=== PATIENT | female | born 1945 | race Caucasian/White ===

== ENCOUNTER 2017-04-27 12:27 | Inpatient (IN) | payer MEDICARE ==
[2017-04-27 13:20] LABS: #Basophils 0.1 thou/uL (0.0-0.2); #Lymphocytes 1.8 thou/uL (1.20-3.40); #Monocytes 0.8 thou/uL (0.11-0.59); #Neutrophils 4.2 thou/uL (1.40-6.50); %Eosinophils 0.5 % (0.0-10.0); %Lymphocytes 26.4 % (21.0-51.0); %Monocytes 11.5 % (0.0-10.0); Hematocrit 43.6 % (36.0-47.0); Mean Platelet Volume 6.4 fL (7.4-10.4); Red Blood Cell (RBC) Count 4.82 mill/uL (4.20-5.40)
[2017-04-27 13:24] LABS: Bilirubin Negative (Negative); Blood, Urine Negative (Negative); Glucose, Urine (Dipstick) Negative (Negative); Ketone, Urine Negative (Negative); Nitrite Negative (Negative); Protein, Urine (Dipstick) Negative (Neg-Trace); Urobilinogen 0.2 mg/dL (0.2-1.0)
--- NOTE | 2017-04-27 13:26 | RAD ---
CHEST PA AND LATERAL: HISTORY: A 72-year-old female with chest pain and weakness, lightheadedness, fatigue, loss of appetite. COMPARISON: 11/19/14. FINDINGS: Heart size is within normal limits. Bilateral breast augmentation and prostheses. No confluent pne umonia, overt edema, or pleural effusion. There are noted to be some scattered air fluid levels wit hin the abdomen, probably colon, although I cannot state that with absolute certainty. Consider a fo llowup flat and upright abdomen study for further evaluation. IMPRESSION: No acute intrathoracic disease. Scattered air fluid levels within nonspecific bowel incompletely se en on this study. Followup flat and upright abdomen study might be of benefit. POS: [facility]
[2017-04-27 13:33] LABS: ALT (SGPT) 27 U/L (8-55); AST (SGOT) 27 U/L (5-34); Alkaline Phosphatase 84 U/L (40-150); Anion Gap 16 mmol/L (10-20); BUN (Urea Nitrogen) 17 mg/dL (9.8-20.1); Bilirubin, Total 0.5 mg/dL (0.2-1.2); Calc. Creatinine Clearance 0 mL/min (70-130); Calcium 8.4 mg/dL (7.8-10.44); Carbon Dioxide 19 mmol/L (23-31); Chloride 104 mmol/L (98-107); Estimated GFR-MDRD 33; Globulin 2.3 g/dL (2.4-3.5)
[2017-04-27 13:35] LABS: Troponin I Less than 0.010 ng/mL (< 0.028)
[2017-04-27] MEDS ORDERED: Potassium Chloride 20 MEQ/100 ML PREMIX BAG ONE (14:00)
[2017-04-27 14:09] LABS: Lactic Acid - Sepsis 1.1 mmol/L (0.5-2.2)
[2017-04-27 17:53] LABS: Free T3 1.63 pg/mL (1.71-3.71)
--- NOTE | 2017-04-27 18:39 | CT ---
ABDOMEN AND PELVIC CT SCAN WITHOUT IV CONTRAST: History: 72-year-old female with weakness and light headedness. Recent infection with nausea, vomiting, diarr hea, and fever. FINDINGS: The lung bases appear clear. Small hiatal hernia. Approximately 1.8 x 2.2 cm diameter cyst in the ri ght lobe of the liver. Arterial vascular calcification of the aorta. Liver, gallbladder, pancreas, s pleen, adrenal glands, are otherwise unremarkable. No renal calculus or acute obstruction. There is considerable amount of fluid throughout a somewhat distended colon from rectum all the way to cec um which may well account for symptoms of diarrhea. Normal appearing appendix. No evidence for bowel obstruction. No renal calculus or obstruction. IMPRESSION: Distended fluid filled and minimally air filled colon which certainly could account for symptoms of diarrhea. Right lobe of liver cyst. Small hiatal hernia. Normal appearing appendix. No renal calculu s or obstruction. POS: [facility]
[2017-04-27] MEDS ORDERED: Acetaminophen 325 MG TAB PO PRN (18:44)
[2017-04-27] MEDS ORDERED: Lactated Ringer's 1,000 ML IV SCH (19:00)
[2017-04-27] MEDS: Dextrose 5%-Lactated Ringers 1,000 ML IV SCH (22:30)
[2017-04-27] MEDS ORDERED: ALPRAZolam 0.25 MG TAB PO SCH (23:15)
--- NOTE | 2017-04-28 00:45 | HP ---
CHIEF COMPLAINT: Weakness. HISTORY OF PRESENT ILLNESS: This is a 72-year-old female, patient of Dr. David Ramirez, jo wei came to the emergency room due to weakness. This past week, she has had symptoms of a GI virus w ith initial days of emesis and nausea followed by diarrhea and she felt presyncopal earlier today, jo mcgovern is what made her come into the emergency room. She stated that the GI illness had been making its way through her family starting earlier in this past week. Check in the outpatient chart, she h ad actually been given a prescription for Lomotil and Zofran just a couple of days ago. In the ER, she was found to have creatinine of 1.5 and potassium of 2.3. PAST MEDICAL HISTORY: Hypothyroidism, menopause, she is on hormone replacement therapy, glaucoma, g eneral anxiety disorder, and hyperlipidemia. PAST SURGICAL HISTORY: Positive for a total vaginal hysterectomy with BSO as well as breast implant s. ALLERGIES: No known drug allergies. MEDICATIONS: Synthroid 125 mcg a day, Zocor 40 mg a day, Premarin 0.625 mg a day, Lexapro 20 mg a d ay, quetiapine 400 mg at bedtime, and alprazolam 0.25 mg t.i.d. FAMILY HISTORY: Coronary artery disease and stroke in her father, depression in her mother, both ar e . She has breast cancer. Coronary artery disease and stroke in siblings and she has a ch ild who is . SOCIAL HISTORY: She is a former smoker. She quit in 1969 after smoking for about 10 years. She burt s no toxic habits currently. REVIEW OF SYSTEMS: She denies any fevers or chills. She does have a slight headache, some emesis e arlier in the week, but no nausea or vomiting now. She did have some nausea with slight anorexia as sociated with that earlier in the week that then has transitioned into watery diarrhea. She denies any trouble chewing or swallowing. No chest pain or shortness of breath. No hemoptysis. Denies an y hematemesis, bright red blood per rectum, or melena. Denies any changes in urinary habits. No dy suria or hematuria. Denies any paresis or paresthesias. She did have some leg cramps earlier with replacement of electrolytes does have subsided. She also denies any hallucinations, auditory or vis ual. Denies any suicidal or homicidal ideations. PHYSICAL EXAMINATION: VITAL SIGNS: Her temperature is 98.0, pulse 72, respirations at 16. She is satting 97% on room air , and BP 138/65. GENERAL: She is a thin female, appears younger than her stated age. She is alert and ivelisse ented rather nervous at this point. HEENT: She is normocephalic, atraumatic cranium. Pupils are equal, round, and reactive to light an d accommodation. Extraocular movements are intact. Mucous membranes are dry, but pink. NECK: Supple. No JVD, no bruits. LUNGS: Clear to auscultation bilaterally. HEART: S1, S2,. No rubs, murmurs, or gallops. ABDOMEN: Soft, nontender, nondistended. No palpable masses. No hepatosplenomegaly. No caput medu erin. Bowel sounds are hypoactive throughout. GENITOURINARY: Deferred. EXTREMITIES: She has palpable pulses in all four extremities. No cyanosis or edema. She has no kn own rash seen. NEUROMUSCULAR: She is alert and oriented x4. Cranial nerves II through XII are equal and symmetric al. There are no sensory or motor deficits found. All DTRs are 2+ and equal. LABORATORY FINDINGS: Her white count is 7.0, H and H is 15 and 43 with a 296,000 platelets. Neutro phils at 60%, lymphocytes at 26%, monocytes 11.5%. There are no bands. Sodium is 137, potassium wa s 2.3, is now 3.0, chloride 104, bicarbonate 19, BUN 17, creatinine is elevated at 1.55, glucose is 98. Troponin is undetectable. Beta natriuretic peptide is normal at 22 and her TSH is suppressed a t 0.01. ASSESSMENT AND PLAN: Acute viral illness with diarrhea, hypokalemia, and weakness resulting, she is already feeling better after having this corrected up to a 3.0. She also has hyperthyroid effect, possibly from excess medicines or possibly associated with a viral illness and dehydration. I will decrease her dose to an 88 mcg while she is here. She has acute renal insufficiency and also likely due to the viral illness, dehydration, and diarrhea. We will continue her IV fluids and monitor Dr Lucy Ramirez to see her in the morning.
[2017-04-28] MEDS: ALPRAZolam 0.25 MG TAB PO SCH ×2 (05:29→14:25)
[2017-04-28] MEDS ORDERED: Levothyroxine Sodium 88 MCG TAB PO SCH (06:00)
[2017-04-28 06:11] LABS: Band 2 % (5-11); Hematocrit 39.2 % (36.0-47.0); Mean Platelet Volume 6.3 fL (7.4-10.4); Neutrophil 43 % (42-75); Reactive Lymphocytes 2 % (0-10); Red Blood Cell (RBC) Count 4.08 mill/uL (4.20-5.40); White Blood Cell (WBC) Count 6.6 thou/uL (4.8-10.8)
[2017-04-28 06:14] LABS: Anion Gap 9 mmol/L (10-20); BUN (Urea Nitrogen) 13 mg/dL (9.8-20.1); Calc. Creatinine Clearance 34 mL/min (70-130); Carbon Dioxide 16 mmol/L (23-31); Chloride 114 mmol/L (98-107); Estimated GFR-MDRD 46
[2017-04-28] MEDS ORDERED: Magnesium Oxide 400 MG TAB PO SCH (07:15)
[2017-04-28] MEDS ORDERED: Potassium Chloride 20 MEQ TAB PO SCH ×2 (07:15→08:00)
[2017-04-28] MEDS ORDERED: Potassium Chloride 40 MEQ in Sodium Chloride 0.9% 250 ML 250 ML IVPB SCH ×2 (07:45→08:15)
[2017-04-28] MEDS ORDERED: FLU VACC TS2017-18 (>65YR) 0.5 ML SYRINGE IM ONE (09:00)
[2017-04-28] MEDS ORDERED: Latanoprost 0.005% Ophth Soln 2.5 ml Bottle EA EYE SCH (09:00)
[2017-04-28] MEDS ORDERED: Brinzolamide 1% Ophth Soln 10 ml Bottle EA EYE SCH (09:00)
[2017-04-28] MEDS ORDERED: Escitalopram Oxalate 20 mg Tablet PO SCH (09:00)
[2017-04-28 13:31] VITALS: BMI 18.8
[2017-04-28 14:25] VITALS: BP 118/57; TEMP 97.6
[2017-04-28 14:45] LABS: Anion Gap 8 mmol/L (10-20); BUN (Urea Nitrogen) 11 mg/dL (9.8-20.1); Calc. Creatinine Clearance 32 mL/min (70-130); Calcium 8.3 mg/dL (7.8-10.44); Carbon Dioxide 21 mmol/L (23-31); Chloride 111 mmol/L (98-107); Estimated GFR-MDRD 45
[2017-04-28] MEDS: Dextrose 5%-Lactated Ringers 1,000 ML IV SCH ×2 (15:13→15:19)
[2017-04-29] MEDS ORDERED: Potassium Chloride 20 MEQ TAB PO SCH (08:00)
[2017-04-29] MEDS ORDERED: Magnesium Oxide 400 MG TAB PO SCH (09:00)
--- NOTE | 2017-04-29 14:11 | DIS ---
DISCHARGE DIAGNOSES: 1. Dehydration. 2. Diarrhea. 3. Gastroenteritis. 4. Hypokalemia. ADMITTING PHYSICIAN: David Ramirez M.D. HOSPITAL SUMMARY: The patient is a 72-year-old female who reported to the emergency room with a 3-5 day history of recurrent diarrhea associated with some vomiting. She was found to have a clinical de hydration manifested by hypokalemia, potassium of below 3. She was started on IV fluids, as well as oral and IV potassium supplementation. She tolerated all supplementation well by the end of treatmen t. Her potassium levels have returned back to normal. She was able to be discharged home on 04/28/2017 on the following medications: Xanax 0.25 mg every 8 hours, magnesium oxide 400 mg b.i.d., potassium chloride 20 mEq p.o. b.i.d., Xalatan eyedrops, Azopt eyedrops, Seroquel 400 mg p.o. at bedtime, citalopram 20 mg daily, simvastatin 40 mg daily. She will be seen in followup in my office in approximately 3 days.
--- NOTE | 2017-06-14 10:40 | EKG ---
Test Reason : WEAKNESS Blood Pressure : / mmHG Vent. Rate : 080 BPM Atrial Rate : 084 BPM P-R Int : 000 ms QRS Dur : 098 ms QT Int : 434 ms P-R-T Axes : 038 042 063 degrees QTc Int : 500 ms Age and gender specific ECG analysis Sinus rhythm with A-V dissociation and Accelerated Junctional rhythm Indeterminate axis Nonspecific T wave abnormality Prolonged QT Abnormal ECG Confirmed by MARGY HARDEN M.D. ([id number]), editor news CAMACHO [place]IS ([id number]) on 06/14/2017 10:40:21 AM Referred By: DR. HARDEN Confirmed By:MARGY HARDEN M.D.
== END 2017-04-28 17:30 | disposition home or self-care (01) | DRG 392 ==
LOC: SCSER 12:27 → 2NO 15:33
PROVIDERS: ADMIT Family Medicine; ATTEND Family Medicine
DX: A08.4 Viral intestinal infection, unspecified (principal); E86.0 Dehydration; E03.9 Hypothyroidism, unspecified; R53.1 Weakness; E87.6 Hypokalemia; N28.9 Disorder of kidney and ureter, unspecified; E78.5 Hyperlipidemia, unspecified; Z79.890 Hormone replacement therapy; Z87.891 Personal history of nicotine dependence
CPT/HCPCS: 36415; 71020; 74176; 80048; 80053; 81003; 82553; 83605; 83735; 83880; 84439; 84443; 84481; 84484; 85025; 87324; 87449; 93005; 96365; 96366; A4216; J3480; J7050

== ENCOUNTER 2018-01-07 12:00 | Outpatient (CLI) | payer MEDICARE ==
--- NOTE | 2018-01-07 13:58 | CT ---
CT ABDOMEN AND PELVIS PERFORMED WITH INTRAVENOUS CONTRAST ENHANCEMENT: HISTORY: Right lower quadrant pain since Friday. Fever. Nausea. FINDINGS: ABDOMEN: The lung bases show findings that would suggest an emphysematous type change. The liver, spleen, pancreas, and gallbladder regions appear unremarkable, other than the presence of a cyst involving the inferior-most aspect of the right lobe of the liver. It measures 2.2 cm. The right and left adrenal glands and the right and left kidneys are normal in size. There is no sig nificant periaortic or mesenteric adenopathy. There is fluid seen throughout the colon, suggesting d iarrhea. PELVIS: There is an appendicolith present, associated with a dilated appendix. There is some air de nsity seen adjacent to the base of the appendix. I am not certain whether this represents a small co ntained perforation or possibly just volume averaging with the cecum. There is no free fluid in the pelvis. No other significant findings. IMPRESSION: CT findings compatible with appendicitis with an appendicolith near the base of the appendix. There is also some air density in this region. This could represent a contained perforation of the appendi x in this region, although it could just be related to some volume averaging with the adjacent bowel. POS: [facility]
[2018-01-07] MEDS ORDERED: Iopamidol 370 76% 100 ML VIAL ONE (15:02)
== END 2018-01-07 12:01 | disposition home or self-care (01) ==
LOC: CT 12:00
PROVIDERS: ATTEND Family Medicine
DX: R10.31 Right lower quadrant pain (principal); R50.9 Fever, unspecified
CPT/HCPCS: 74177

== ENCOUNTER 2018-01-07 13:41 | Inpatient (IN) | payer MEDICARE ==
[2018-01-07] MEDS ORDERED: Lidocaine 1% PF 5 ML VIAL ONE (13:55)
[2018-01-07] MEDS ORDERED: PROPOFOL 200 MG/20 ML VIAL ONE (13:55)
[2018-01-07] MEDS ORDERED: Glycopyrrolate 0.2 MG/ML 5 ML SYRINGE ONE (13:55)
[2018-01-07] MEDS ORDERED: Ondansetron HCl/PF 4 MG/2 ML Vial ONE ×2 (13:55→20:55)
[2018-01-07] MEDS ORDERED: Succinylcholine Chloride 20 MG/ML 10 ml SYRINGE FS ONE (13:55)
[2018-01-07] MEDS ORDERED: Piperacillin/Tazobactam 3.375 GM VIAL ONE (14:02)
[2018-01-07] MEDS ORDERED: Morphine 4 MG/ML VIAL ONE (14:29)
[2018-01-07 14:42] LABS: #Lymphocytes 1.2 thou/uL (1.20-3.40); #Monocytes 1.3 thou/uL (0.11-0.59); #Neutrophils 12.7 thou/uL (1.40-6.50); %Basophils 0.2 % (0.0-1.0); %Eosinophils 0.1 % (0.0-10.0); %Lymphocytes 8.1 % (21.0-51.0); %Monocytes 8.2 % (0.0-10.0); %Neutrophils 83.3 % (42.0-75.0); Hemoglobin 15.3 g/dL (12.0-16.0); Mean Corpuscular HGB CONC 34.4 g/dL (32.0-36.0); Mean Corpuscular Hemoglobin 32.5 pg (27.0-31.0); Mean Corpuscular Volume 94.5 fL (78.0-98.0); Mean Platelet Volume 6.4 fL (7.4-10.4); Platelet Count 273 thou/uL (130-400); RBC Distribution Width 11.5 % (11.5-14.5); White Blood Cell (WBC) Count 15.3 thou/uL (4.8-10.8)
[2018-01-07 15:00] LABS: Bilirubin Negative (Negative); Blood, Urine Negative (Negative); Clarity CLEAR (Clear); Glucose, Urine (Dipstick) Negative (Negative); Leukocyte Negative (Negative); Nitrite Negative (Negative); Protein, Urine (Dipstick) Negative (Neg-Trace); Urobilinogen 0.2 mg/dL (0.2-1.0); pH, Urine 5.5 (5.0-9.0)
[2018-01-07 15:05] LABS: Specific Gravity, Urine 1.046 (1.002-1.036)
[2018-01-07 15:07] LABS: ALT (SGPT) 21 U/L (8-55); AST (SGOT) 30 U/L (5-34); Albumin 4.1 g/dL (3.4-4.8); Alkaline Phosphatase 84 U/L (40-150); Anion Gap 15 mmol/L (10-20); BUN (Urea Nitrogen) 19 mg/dL (9.8-20.1); Bilirubin, Total 0.6 mg/dL (0.2-1.2); Calc. Creatinine Clearance 0 mL/min (70-130); Calcium 8.7 mg/dL (7.8-10.44); Carbon Dioxide 24 mmol/L (23-31); Chloride 94 mmol/L (98-107); Estimated GFR-MDRD 40; Globulin 2.8 g/dL (2.4-3.5); Glucose 102 mg/dL (83-110); Lipase 69 U/L (8-78); Protein, Total 6.9 g/dL (6.0-8.3); Sodium 130 mmol/L (136-145)
[2018-01-07 15:13] LABS: Potassium 2.8 mmol/L (3.5-5.1)
[2018-01-07] MEDS ORDERED: Potassium Chloride 40 MEQ in Sodium Chloride 0.9% 250 ML 250 ML IVPB SCH (15:45)
--- NOTE | 2018-01-07 16:25 | HP ---
REQUESTING PHYSICIAN: Dr. Cortez ATTENDING SURGEON: Dr. Frias HISTORY OF PRESENT ILLNESS: The patient is a 72-year-old woman who presented to the emerge ncy department after being referred from her primary care provider for right lower quadrant pain and fever. The patient states that on Friday she woke up with some generalized abdominal pain that event ually migrated to her right lower quadrant. She initially thought this was gas and attempted some ov [id number] medications without relief. This morning she woke up febrile with a temperature of 10 0.1 and unrelenting pain at which time she was brought to the Emergency Department, evaluated, examin ed and noted to have acute appendicitis with a possible perforation at which time we were asked to ev aluate the patient for admission. The patient states that she has had nausea without vomiting, and d enies any diarrhea. ALLERGIES: None. MEDICATIONS: Xanax, Lexapro, Premarin, latanoprost, levothyroxine, magnesium oxide, potassium chlori de, Seroquel and Zocor. PAST MEDICAL HISTORY: Anxiety, depression, hypothyroidism, hyperlipidemia. PAST SURGICAL HISTORY: Hysterectomy and tonsillectomy. SOCIAL HISTORY: The patient denies drug, tobacco or alcohol use. She currently lives home with her spouse. FAMILY HISTORY: Hypertension. REVIEW OF SYSTEMS: Ten point review of systems negative unless otherwise stated. PHYSICAL EXAMINATION: VITAL SIGNS: Blood pressure 111/60, heart rate 85, respirations 15, oxygen saturation is 99% on room air, temperature is 98.6. GENERAL: The patient is resting comfortably in bed. She is awake, alert, and oriented x3. HEENT: Head is normocephalic, atraumatic. Eyes: Extraocular motion intact. PERRLA bilaterally. E ars are atraumatic without discharge. Nose is atraumatic without discharge. Oropharynx is clear. NECK: Nontender. Trachea is midline. No JVD. CHEST: Clear to auscultation with good inspiratory and expiratory effort. HEART: Regular rate and rhythm. ABDOMEN: Soft, flat with significant tenderness to the right lower quadrant. The patient has positi ve tenderness to McBurney's point and has a positive Roving sign. Bowel sounds are absent. Pelvis i s stable. EXTREMITIES: Neurovascularly intact x4. BACK: Nontender with right CVA tenderness. The patient states it radiates into her right lower quad rant. LABORATORY DATA: White blood cell count 15.3, hemoglobin 15.3, hematocrit 44.4, platelets 273. Sodi um 130, potassium 2.8, chloride 94, CO2 of 24, BUN 19, creatinine 1.32, glucose 102. Lactic acid 3.6 . CRP 11.8. LFTs are unremarkable. Lipase 69. Urinalysis is unremarkable. CT of the abdomen and pelvis with IV contrast shows CT findings compatible with appendicitis with an appendicolith near the base of the appendix. There is also some air density in this region. This co uld represent a contained perforation of appendix in this region, although it could just be related t o some volume averaging in the adjacent bowel. ASSESSMENT AND PLAN: Acute appendicitis with possible perforation. PLAN: The plan will be to admit the patient to the surgical floor. She should be taken from here to day stay for laparoscopic appendectomy. She will have fluid hydration, IV antibiotics, pain control , pulmonary toilet, mechanical DVT prophylaxis and gastritis prophylaxis. Evaluation, examination, laboratory and radiographic findings were discussed with Dr. Frias at time o f dictation. He will consent the patient for his surgical procedure here in the emergency department .
[2018-01-07] MEDS ORDERED: Bupivacaine/Epinephrine 0.25% 30 ML VIAL ONE (16:45)
[2018-01-07] MEDS ORDERED: Fentanyl 100 MCG/2 ML VIAL ONE ×4 (17:12→20:28)
[2018-01-07] MEDS ORDERED: SUGAMMADEX SODIUM 200 MG/2 ML VIAL ONE (18:50)
[2018-01-07] MEDS ORDERED: hydrALAZINE 20 MG/ML VIAL SLOW IVP PRN ×2 (18:51→21:25)
[2018-01-07] MEDS ORDERED: Dextrose 5% in Water 1,000 ML IV PRN ×2 (18:51→21:25)
[2018-01-07] MEDS ORDERED: Dextrose 50% Abboject 50 ML SYRINGE SLOW IVP PRN ×2 (18:51→21:25)
[2018-01-07] MEDS ORDERED: traMADol HCl 50 MG TAB PO PRN ×3 (18:54→21:25)
[2018-01-07] MEDS ORDERED: Promethazine HCl 25 MG/ML VIAL IM PRN ×2 (19:04→21:25)
[2018-01-07] MEDS ORDERED: Ondansetron HCl/PF 4 MG/2 ML Vial IVP PRN ×2 (19:04→21:25)
[2018-01-07] MEDS ORDERED: Promethazine HCl 25 MG/ML VIAL SLOW IVP PRN (19:04)
[2018-01-07] MEDS ORDERED: Promethazine HCl 25 MG/ML VIAL ONE (19:12)
[2018-01-07] MEDS ORDERED: Ketorolac Tromethamine 30 MG/ML VIAL ONE (20:12)
[2018-01-07] MEDS ORDERED: Famotidine/PF 20 mg/2ml Vial SLOW IVP SCH (21:25)
[2018-01-07] MEDS ORDERED: Famotidine 20 MG TAB PO SCH (21:25)
[2018-01-07] MEDS ORDERED: Piperacillin/Tazobactam 3.375 GM in Sodium Chloride 0.9% 100 ML IVPB SCH (21:25)
[2018-01-07] MEDS ORDERED: Acetaminophen 325 MG TAB PO PRN (21:25)
[2018-01-07] MEDS ORDERED: Ketorolac Tromethamine 30 MG/ML VIAL IVP SCH (21:25)
[2018-01-07] MEDS ORDERED: Lactated Ringer's 1,000 ML IV SCH (21:25)
[2018-01-07 22:01] VITALS: BMI 20.7
[2018-01-07] MEDS: Lactated Ringer's 1,000 ML IV SCH (22:03)
[2018-01-07 22:25] LABS: Lactic Acid 1.2 mmol/L (0.5-2.2)
[2018-01-07] MEDS ORDERED: Escitalopram Oxalate 20 mg Tablet PO SCH (22:45)
[2018-01-08] MEDS: Acetaminophen 500 MG TAB PO SCH ×5 (00:19→23:54)
[2018-01-08] MEDS: Ketorolac Tromethamine 30 MG/ML VIAL IVP SCH ×3 (00:24→12:06)
[2018-01-08] MEDS: Piperacillin/Tazobactam 3.375 GM in Sodium Chloride 0.9% 100 ML IVPB SCH ×5 (00:25→23:52)
--- NOTE | 2018-01-08 00:50 | OP ---
DATE OF OPERATION: 01/07/2018 PREOPERATIVE DIAGNOSIS: Acute appendicitis, likely with perforation. POSTOPERATIVE DIAGNOSES: 1. Acute appendicitis with perforation. 2. Periappendiceal abscess. SURGERY PERFORMED: 1. Laparoscopic appendectomy. 2. Drainage of periappendiceal abscess. SURGEON: Shorty Frias DO ANESTHESIA: General endotracheal. ESTIMATED BLOOD LOSS: 10 mL FLUIDS GIVEN: 1000 mL crystalloids. SPONGE AND INSTRUMENT COUNT: Certified as correct x2. COMPLICATIONS: None apparent. INDICATIONS FOR PROCEDURE: This is a 72-year-old woman who presented with 2-day history of abdominal pain. Clinical radiographic examination was consistent with acute appendicitis, likely wi th perforation. The patient was brought to the operating room for appendectomy. Findings are consistent with suppurative perforated retrocecal appendix with periappendiceal abscess on extraluminal appendicolith. DESCRIPTION OF PROCEDURE: Informed consent was obtained from the patient who was brought to the oper ating room and placed in supine position. Following general anesthesia, abdomen was sterilely preppe d and draped in usual fashion. The skin below the umbilicus was infiltrated with 0.25% Marcaine with epinephrine. A small curvilinear infraumbilical incision is made using 11 scalpel. Umbilical stalk was grasped with a Maurizio and elevated. Veress needle was inserted through the incision and placed in the peritoneal cavity through which the abdomen was insufflated with 3 liters of CO2 gas. Intraab dominal pressure noted at 1 mmHg. Following abdominal insufflation, Veress needle was removed and a 5 mm trocar introduced using a Visiport under laparoscopy. Laparoscopy confirmed proper placement of the port, no injuries to underlying structures. Additional laparoscopy reveals the right lower quad rant completely encased by omental adhesions. Under direct laparoscopy, a 5 mm suprapubic and a 12 m m left lower quadrant ports were placed after the overlying skin and were infiltrated with 0.25% Jose yan with epinephrine and appropriate incisions made. The patient was placed in a Trendelenburg posi tion, rotated to her left. I then introduced Prestige grasper through the left lower quadrant port s ite using this to bluntly take down omental adhesions to expose a retrocecal appendix, which was perf orated at the base. Large amount of purulent pus was evacuated from the periappendiceal area. An extraluminal appendicolith was removed and passed off the operative field. At this juncture, it w as noted that the appendix was blown at the proximal two-thirds leaving only approximately 2 cm of ap pendiceal stump. I was able to manipulate the stump to a grasper and then fired an Endo-SREEDHAR stapler with a blue load a t the base. Then I proceeded to dissect out the remainder of the appendix, which is completely welde d into the right lateral gutter. Once it was freed up from the lateral attachments, I fired another Endo-SREEDHAR stapler this time with a white load through the mesoappendix achieving good hemostasis. This suppurative appendix is removed using an EndoCatch and passed off the operative field for onward transmission to pathology. The operative site was copiously irrigated with saline until it was elmer r. Finding no other pathology, laparoscopy was terminated. A #19 Yogi drain was introduced into th e operative site, allowed this to exit the abdominal cavity through the suprapubic port site. The dr taveras was secured to intraabdominal wall using 2-0 nylon suture. Fascia of the left lower quadrant por t was closed using 0 Vicryl suture and an Endo closure device under laparoscopy. Abdomen was desuffl ated. Ports and instruments removed and accounted for. Reminder of the incisions were closed using 4-0 Monocryl suture in subcuticular fashion. Dermabond was applied over the incision of closure. The patient tolerated the operation without any apparent complication and was returned to the recover y room in satisfactory condition.
[2018-01-08] MEDS: Famotidine 20 MG TAB PO SCH ×2 (00:59→20:17)
[2018-01-08] MEDS: Famotidine/PF 20 mg/2ml Vial SLOW IVP SCH ×2 (00:59→20:58)
[2018-01-08] MEDS: Lactated Ringer's 1,000 ML IV SCH ×2 (05:13→17:52)
[2018-01-08] MEDS ORDERED: Sodium Chloride 0.9% 500 ML IV SCH ×2 (08:15→12:15)
[2018-01-08 09:05] LABS: Anion Gap 12 mmol/L (10-20); BUN (Urea Nitrogen) 21 mg/dL (9.8-20.1); Calc. Creatinine Clearance 28 mL/min (70-130); Calcium 7.3 mg/dL (7.8-10.44); Carbon Dioxide 19 mmol/L (23-31); Chloride 104 mmol/L (98-107); Estimated GFR-MDRD 34; Glucose 113 mg/dL (83-110); Magnesium 1.8 mg/dL (1.6-2.6); Potassium 3.2 mmol/L (3.5-5.1); Sodium 132 mmol/L (136-145)
--- NOTE | 2018-01-08 13:43 | PQF ---
CLINICAL DOCUMENTATION IMPROVEMENT CLARIFICATION FORM: ICD-10 Updated PLEASE DO AN ADDENDUM TO THE PROGRESS NOTE WITH ANY DOCUMENTATION UPDATES OR ADDITIONS AND CARRY THROUGH TO DC SUMMARY. THANK YOU. DATE: 01/08 ATTN: DR. LYNN LANDRY Please exercise your independent, professional judgment in responding to the clarification form. Clinical indicators are provided on the bottom of this form for your review. Please check appropriate box(es): [ x] Sepsis due to: (Pna, UTI, gangrenous gall bladder, etc.) Perforated appendix with abscess [ ] Localized infection without sepsis [ ] Other diagnosis [ ] Unable to determine For continuity of documentation, please document condition throughout progress notes and discharge summary. Thank You. CLINICAL INDICATORS - SIGNS / SYMPTOMS / LABS ER PHYSICIAN DOCUMENTATION 01/07: PT REPORTS FEVER OF 101 THIS MORNING H&P DOCUMENTATION 01/07: HX OF PRESENT ILLNESS: ...THIS MORNING SHE WOKE UP FEBRILE WITH TEMP OF 100.1 ASSESSMENT: ACUTE APPENDICITIS W/POSSIBLE PERFORATION WBC: 15.3 LACTIC ACID: 3.6 CRP: 11.8 (ON ADMIT, 01/07) RISK FACTORS: ACUTE APPENDICITIS WITH PERFORATION PERIAPPENDICEAL ABSCESS TREATMENTS: LAPAROSCOPIC APPENDECTOMY; DRAINAGE OF PERIAPPENDICEAL ABSCESS IV ANTIBIOTIC (ZOSYN 01/07 - PRESENT) IVF (LR 01/07 - PRESENT) THANK YOU! Nicolasa (This form is maintained as a part of the permanent medical record) 2014 [employer], [employer]. All Rights Reserved Nicolasa Ledesma RN, BSN [email or web address] Office: [phone] [facility]
[2018-01-08 17:01] LABS: Lactic Acid 3.4 mmol/L (0.5-2.2)
[2018-01-08] MEDS ORDERED: MAGNESIUM SULFATE IVPB SCH (17:15)
[2018-01-08] MEDS ORDERED: SODIUM CHLORIDE 0.9% IVPB SCH (17:15)
[2018-01-08] MEDS ORDERED: POTASSIUM CHLORIDE IVPB SCH (17:15)
--- NOTE | 2018-01-08 18:18 | PRG ---
DATE OF SERVICE: 01/08/2018 SUBJECTIVE: Ms. Randall is a 72-year-old woman postop day #1 status post laparoscopic appendectomy an d drainage of periappendiceal abscess. The patient is awake and alert today. She reports adequate pain control. Her blood pressure has been waxing, remaining in mostly hypotensive. Urinary output has been margina l, although bladder was scanned for 250 mL of urine. The patient has received bolus of 500 mL of normal saline earlier today. OBJECTIVE: VITAL SIGNS: This morning includes blood pressure 82/51, pulse 70, respiratory rate is 12, temperatu re is 97.6 degrees Fahrenheit, oxygen saturation 93% on 2 liters by nasal cannula oxygen. HEENT: Reveals normocephalic and atraumatic. HEART: Reveals regular rate and rhythm. No murmurs or gallops auscultated. LUNGS: Clear to auscultation bilaterally. Her breathing is regular and unlabored. ABDOMEN: Soft. Incisions are intact, clean and dry. She has incisional tenderness to palpation wit h no gross rebound tenderness present. NEUROLOGIC: Reveals no focal deficits present. LABORATORY FINDINGS: Today includes metabolic profile, sodium 132, potassium is 3.2, chloride is 104 , bicarbonate is 19, BUN is 21, creatinine is 1.49, glucose is 113, phosphorus is 4.0, magnesium 1.8. IMPRESSION: 1. Postop day #1 status post laparoscopic appendectomy and drainage of periappendiceal abscess. 2. Acute hypokalemia. 3. Acute hypomagnesemia. 4. Acute kidney injury likely secondary to septic shock given the hypotension and periappendiceal ab scess. PLAN: 1. Continue with broad spectrum antibiotic therapy. 2. Continue with fluid resuscitation and using urinary output as endpoint of resuscitation. 3. We will correct abnormal electrolytes. 4. Above findings and plan discussed with the patient who indicates understanding of the information given. 5. We will continue with clear liquid diet until return of bowel function.
[2018-01-08] MEDS: Escitalopram Oxalate 20 mg Tablet PO SCH (20:58)
[2018-01-09] MEDS: Lactated Ringer's 1,000 ML IV SCH (05:54)
[2018-01-09] MEDS: Piperacillin/Tazobactam 3.375 GM in Sodium Chloride 0.9% 100 ML IVPB SCH ×2 (05:56→12:29)
[2018-01-09] MEDS: Acetaminophen 500 MG TAB PO SCH ×4 (06:27→22:43)
[2018-01-09 09:36] LABS: #Eosinphils 0.1 thou/uL (0.0-0.7); #Lymphocytes 0.6 thou/uL (1.20-3.40); #Monocytes 0.5 thou/uL (0.11-0.59); #Neutrophils 8.3 thou/uL (1.40-6.50); %Basophils 0.1 % (0.0-1.0); %Eosinophils 0.6 % (0.0-10.0); %Lymphocytes 6.2 % (21.0-51.0); %Monocytes 4.7 % (0.0-10.0); %Neutrophils 88.4 % (42.0-75.0); Hemoglobin 12.5 g/dL (12.0-16.0); Mean Corpuscular HGB CONC 34.3 g/dL (32.0-36.0); Mean Corpuscular Hemoglobin 33.1 pg (27.0-31.0); Mean Corpuscular Volume 96.6 fL (78.0-98.0); Mean Platelet Volume 6.4 fL (7.4-10.4); Platelet Count 192 thou/uL (130-400); RBC Distribution Width 11.8 % (11.5-14.5); Red Blood Cell (RBC) Count 3.76 mill/uL (4.20-5.40); White Blood Cell (WBC) Count 9.4 thou/uL (4.8-10.8)
[2018-01-09 10:30] LABS: Anion Gap 12 mmol/L (10-20); BUN (Urea Nitrogen) 28 mg/dL (9.8-20.1); Calc. Creatinine Clearance 18 mL/min (70-130); Calcium 7.6 mg/dL (7.8-10.44); Carbon Dioxide 20 mmol/L (23-31); Chloride 103 mmol/L (98-107); Estimated GFR-MDRD 21; Glucose 113 mg/dL (83-110); Magnesium 2.9 mg/dL (1.6-2.6); Phosphorus 4.4 mg/dL (2.3-4.7); Potassium 3.4 mmol/L (3.5-5.1); Sodium 132 mmol/L (136-145)
[2018-01-09] MEDS ORDERED: Furosemide 40 MG/4 ML VIAL SLOW IVP SCH (11:00)
--- NOTE | 2018-01-09 13:47 | RAD ---
RADIOGRAPH CHEST 1 VIEW: Date: 01-09-18 Time: 10:16 a.m. HISTORY: 72-year-old female with hypoxia. COMPARISON: 04-27-17 FINDINGS: New finding of indistinctness of bilateral hemidiaphragms and lateral costophrenic angles, with hazin ess of lower lung zones, suggestive of bilateral pleural effusions. Additional airspace densities in the bilateral lower lung zones, right greater than left, which could be pneumonia, atelectasis, or bernabe th. Another new finding of diffuse mild infiltrates throughout most of the left lung, expect for spar ing of the left apex. Hyperlucency of the right upper lobe consistent with COPD as demonstrated on th e prior study. No cardiomegaly. No pneumothorax. No pulmonary edema. IMPRESSION: 1. Airspace densities in the bilateral lower lung zones, right greater than left: unsure if this is p neumonia or atelectasis. 2. More diffuse milder infiltrates throughout much of the left lung, suspicious for pneumonia. 3. Emphysema. 4. Probable bilateral pleural effusions. JAQUELIN POS: [facility]
--- NOTE | 2018-01-09 14:57 | PRG ---
DATE OF SERVICE: 01/09/2018 SUBJECTIVE: Ms. Randall is a 72-year-old woman who is postoperative day #2 status post laparoscopic a ppendectomy and drainage of periappendiceal abscess. The patient reports adequate pain control. Overnight, urinary output has been scant associated with intermittent low blood pressure, which was r esponsive to fluid boluses. OBJECTIVE: VITAL SIGNS: This morning includes blood pressure 116/63, pulse 95, respiratory rate is 18, temperat ure 97.5 degrees Fahrenheit, oxygen saturation 93% on 2 liters by nasal cannula oxygen. HEENT: Reveals normocephalic and atraumatic. HEART: Reveals regular rate and rhythm. No murmurs or gallops auscultated. CHEST: Clear to auscultation bilaterally. Breathing is regular and unlabored. ABDOMEN: Soft, nondistended with incisional tenderness to palpation. Clearly no gross rebound tende rness present. Clayton-Esteves drain returns cloudy ascitic drainage. NEUROLOGIC: Reveals no focal deficits present. LABORATORY DATA: Today includes CBC with 9400 white blood cells, improved from 15,300 two days previ ously. Hemoglobin and hematocrit are 12.5 and 36.3 respectively. Platelet count is 192,000. Metabo lic profile, sodium 132, potassium is 3.4, chloride is 103, bicarbonate is 20, BUN is 28, creatinine is 2.31, glucose is 113, magnesium is 2.9, phosphorus is 4.4. Beta natriuretic peptide, i.e., BNP is 705. IMAGING: I personally reviewed the chest x-ray today, which reveals small bilateral pleural effusion s, increasing pulmonary hilar markings and left pulmonary atelectasis. IMPRESSION: 1. Postoperative day #2 status post laparoscopic appendectomy and drainage of periappendiceal absces s. 2. Acute hypokalemia. 3. Acute kidney injury. 4. Acute congestive heart failure. PLAN: 1. We will decrease total fluid intake at this time. The patient will be given a dose of furosemide and monitor urinary output and pulmonary function as an endpoint of resolution of the congestive hea rt failure. 2. We will correct abnormal electrolytes. 3. The patient is encouraged to ambulate to avoid complications of venous thromboembolism. 4. We will increase diet to full liquids at this time until return of bowel function.
[2018-01-09] MEDS: Piperacillin/Tazobactam 2.25 GM in Sodium Chloride 0.9% 100 ML IVPB SCH (21:03)
[2018-01-09] MEDS: Simvastatin 40 MG TAB PO SCH (21:04)
[2018-01-09] MEDS: Famotidine 20 MG TAB PO SCH (21:04)
[2018-01-09] MEDS: Escitalopram Oxalate 20 mg Tablet PO SCH (21:04)
[2018-01-09] MEDS: traMADol HCl 50 MG TAB PO PRN (21:11)
[2018-01-09] MEDS: Brinzolamide 1% Ophth Soln 10 ml Bottle EA EYE SCH (22:42)
[2018-01-10] MEDS: Levothyroxine Sodium 125 MCG TAB PO SCH (05:08)
[2018-01-10] MEDS: Acetaminophen 500 MG TAB PO SCH ×3 (05:08→18:20)
[2018-01-10] MEDS: Piperacillin/Tazobactam 2.25 GM in Sodium Chloride 0.9% 100 ML IVPB SCH ×3 (05:08→21:18)
[2018-01-10] MEDS: ALPRAZolam 0.25 MG TAB PO PRN (07:31)
[2018-01-10 08:37] LABS: Actual Bicarbonate (HCO3a) 14.3 mEq/L (22-28); CO2 Tension 24.6 mmHg (35.0-45.0); O2 Tension (PaO2) 59.5 mmHg (> 70.0); pH, Arterial 7.38 (7.35-7.45)
[2018-01-10 08:38] LABS: Calcium, Ionized 1.1 mmol/L (1.12-1.30); Puncture Site RBA
[2018-01-10 08:57] LABS: Mean Corpuscular HGB CONC 34.4 g/dL (32.0-36.0); Mean Corpuscular Hemoglobin 32.8 pg (27.0-31.0); Mean Corpuscular Volume 95.3 fL (78.0-98.0); Mean Platelet Volume 6.6 fL (7.4-10.4); Platelet Count 222 thou/uL (130-400); RBC Distribution Width 11.8 % (11.5-14.5); Red Blood Cell (RBC) Count 3.97 mill/uL (4.20-5.40); White Blood Cell (WBC) Count 11.9 thou/uL (4.8-10.8)
[2018-01-10] MEDS ORDERED: Escitalopram Oxalate 20 mg Tablet PO SCH (09:00)
[2018-01-10 09:11] LABS: Anion Gap 16 mmol/L (10-20); BUN (Urea Nitrogen) 35 mg/dL (9.8-20.1); Calc. Creatinine Clearance 13 mL/min (70-130); Carbon Dioxide 18 mmol/L (23-31); Chloride 98 mmol/L (98-107); Estimated GFR-MDRD 15; Glucose 117 mg/dL (83-110); Magnesium 2.8 mg/dL (1.6-2.6); Phosphorus 4.4 mg/dL (2.3-4.7); Sodium 129 mmol/L (136-145)
[2018-01-10 09:27] LABS: Band 8 % (5-11); Burr Cells SLIGHT = 2-5 cells (100X) (0-1/hpf); Eosinophils 1 % (0-10); Lymphocytes 2 % (21-51); MDiff Complete? YES; Monocytes 9 % (0-10); Neutrophil 80 % (42-75); PLT Morphology Comment Appears Adequate
--- NOTE | 2018-01-10 09:29 | RAD ---
UPRIGHT PORTABLE CHEST ONE VIEW: History: 72-year-old female with history of difficulty breathing. Comparison: 01-09-18 FINDINGS: Persistent bilateral interstitial and alveolar parenchymal changes in the left mid and lower lung zon e and the right lower lobe with bilateral pleural effusions. There is rotation to the left. Parenchym al changes in the left upper lobe appear slightly improved. IMPRESSION: Interstitial and alveolar parenchymal changes throughout the left lung and right lower lobe and bilat eral pleural effusions showing slight improvement in the left upper lobe. POS: [facility]
[2018-01-10] MEDS ORDERED: Heparin 25,000 units/D5W 500 ML IVPB SCH (09:30)
[2018-01-10] MEDS ORDERED: Heparin 10,000 UNITS/ 10 ML VIAL SLOW IVP SCH (09:30)
[2018-01-10 09:33] LABS: Potassium 2.9 mmol/L (3.5-5.1)
[2018-01-10 10:14] LABS: Hemoglobin 12.7 g/dL (12.0-16.0); Platelet Count 221 thou/uL (130-400)
[2018-01-10] MEDS ORDERED: Potassium Chloride 40 MEQ in Sodium Chloride 0.9% 250 ML 250 ML IVPB SCH (10:30)
[2018-01-10] MEDS: Sodium Bicarbonate 150 MEQ in Dextrose 5% in Water 1,000 ML IV SCH (11:26)
--- NOTE | 2018-01-10 12:32 | PRG ---
DATE OF SERVICE: 01/10/2018 SUBJECTIVE: Ms. Randall is a 72-year-old woman who is postop day #3 status post laparoscopic appendec tiffani and drainage of periappendiceal abscess. Overnight, patient reports passing flatus and having b owel movements. She did develop episode of oxygen desaturation this morning regarding the code green . She denies any dyspnea except when she is off oxygen. She denies any chest pain or syncope. Glas damian coma scale at the time of my evaluation is 15. at bedside. She moves all extremities an d answers questions appropriately. OBJECTIVE: VITAL SIGNS: Includes blood pressure 122/56, pulse is 107, respiratory rate is 28, maximum temperatu re in the last 24 hours is 97.8 degrees Fahrenheit, oxygen saturation is 92% on 3 liters by nasal can nula oxygen. Clayton-Esteves drain is in place and has returned 40 mL previous 24 hours. She produced 450 mL of urine over the last 24 hours, although she did also had some void that were all measured. HEENT: Reveals normocephalic and atraumatic. Pupils are equal, round, and reactive to light and acc ommodation. Extraocular muscles are intact bilaterally. She has no scleral icterus present. Oral m ucosa pink and moist. No lesions are noted. She has no jugular venous distention noted this morning . HEART: Reveals regular rate with sinus tachycardia. No murmurs or gallops auscultated. LUNGS: Clear to auscultation bilaterally. Her breathing is regular and unlabored. ABDOMEN: Soft with incisional tenderness to palpation. She has no gross rebound tenderness present. NEUROLOGIC: Reveals no focal deficits present. LABORATORY DATA: Pertinent laboratory findings today includes CBC with 11,900 white blood cells, hem oglobin and hematocrit are 13.0 and 37.8 respectively. Platelet count is 222,000. Metabolic profile ; sodium is 129, potassium is 2.9, chloride is 98, bicarbonate is 18, BUN 35, creatinine is 3.09 and this is a drastic increase from yesterday for 28 and 2.31 respectively, especially since the patient' s admitting BUN and creatinine were 19 and 1.32. Magnesium today is 1.8, phosphorus is 4.0, glucose is 113. IMAGING DATA: I have personally reviewed the chest x-ray, which was obtained this morning consistent with bilateral interstitial and alveolar parenchymal infiltrates with small bilateral pleural effusi ons. IMPRESSION: 1. Postoperative day #3 status post laparoscopic appendectomy and drainage of periappendiceal absces s. 2. Acute kidney injury. 3. Acute lung injury, likely acute respiratory distress syndrome likely secondary to septicemia. 5. Postoperative 3 status post laparoscopic appendectomy and drainage of periappendiceal abscess. PLAN: 1. Continue broad spectrum antibiotic therapy. 2. We will initiate bicarbonate infusion to treat acute kidney injury which is chloride responsive. 3. We will ask Nephrology to evaluate the patient regarding the acute kidney failure. 4. We will obtain V/Q scan to rule out pulmonary embolism. In the meantime, we will initiate hepari n infusion, pending V/Q scan. 5. Correct abnormal electrolytes. Above findings and plan has been discussed with the patient and her at bedside. They both in dicated understanding of information given. I answered their questions.
[2018-01-10] MEDS: Brinzolamide 1% Ophth Soln 10 ml Bottle EA EYE SCH ×2 (13:49→21:29)
[2018-01-10] MEDS: Latanoprost 0.005% Ophth Soln 2.5 ml Bottle EA EYE SCH (13:50)
--- NOTE | 2018-01-10 15:31 | NM ---
VENTILATION PERFUSION STUDY: 01/10/2018 HISTORY: Hypoxia. Difficulty breathing. COMPARISON: Chest x-ray on 01/10/2018. RADIOPHARMACEUTICAL: Xenon 133 gas 16.8 millicuries inhaled. Technetium 99m labeled MAA 5.6 millicuries IV. FINDINGS: Chest x-ray demonstrates bibasilar pleural and parenchymal lung changes, probably related to bilatera l pleural effusions. In addition, there are interstitial opacities in the left upper lung zone with questionable mild bullous emphysematous changes in the upper lung zones on recent chest x-ray. The v entilation portion of the study demonstrates a defect at the lateral aspect of the left upper lung zo ne, which may be secondary to the interstitial opacities. There is mild diminished washout of radiot racer within the lungs, bilaterally, suggesting an element of COPD. Perfusion study demonstrates no segmental or subsegmental defect, and there are no findings to suggest a ventilation perfusion mismat ch; however, there is heterogeneous activity within the mid and upper lung zones, which could be seco ndary to parenchymal lung changes and question of emphysematous changes noted on the chest x-ray. Th ere is no ventilation perfusion mismatch appreciated. IMPRESSION: Low probability for pulmonary embolus. POS: MARIE
--- NOTE | 2018-01-10 16:29 | ULT ---
BILATERAL LOWER EXTREMITY VENOUS DUPLEX EXAM: 01/10/18 HISTORY: Bilateral leg edema. Real time color doppler evaluation of the right and left lower extremities were performed from groin to calf. This includes evaluation of the common femoral, superficial and profunda femoral, saphenous, popliteal, and posterior tibial veins. This shows patent deep venous systems. There is normal compressibility and augmentation. There is no evidence of DVT. IMPRESSION: No evidence of DVT of either lower extremity. POS: MENG
[2018-01-10 16:40] LABS: PTT 201.1 SEC (22.9-36.1)
--- NOTE | 2018-01-10 16:42 | ULT ---
RENAL ULTRASOUND: 01/10/18 HISTORY: Acute renal insufficiency. Real time imaging of the right and left kidneys were performed. The right kidney measures 9.9 and the left kidney 9.6 cm in size. There is no signs of cyst, mass or obstruction. The bladder is mildly di stended. Incidental note is made of small bilateral effusions. IMPRESSION: 1. No evidence of obstruction of either kidney. 2. Small bilateral pleural effusions. POS: MENG
--- NOTE | 2018-01-10 17:21 | CON ---
DATE OF CONSULTATION: 01/10/2018 SERVICE: Renal Medicine. HISTORY OF PRESENT ILLNESS: Ms. Randall is a 72-year-old white female who was admitted for an acute a bdomen and was diagnosed to have a perforated appendix. She underwent a laparoscopic appendectomy at that time. There was also drainage of the said periappendiceal abscess. In the last few days, her renal function has noted to be worsening. Her most recent creatinine is noted at 3.09. One day prio r to this on 01/09, it was 2.31 and on 01/08, it was 1.49. On admission, it was noted to be at 1.32. Of interest, this patient has also been receiving some diuretics and this has now been discontinued. The patient this morning was said to have developed an acute hypoxemia. She was started on heparin d rip. In addition, DuoNeb has been started. Please note that the patient is being ruled out for the possibility of pulmonary embolism. REVIEW OF SYSTEMS: Positive for mild shortness of breath. No chest pain or syncopal episode. No na usea, no vomiting, no gross hematuria, no dysuria, no urinary frequency, no hematochezia, no melena, no hematemesis, no productive cough, no fever or chills. MEDICATIONS: The patient is currently on Xanax 0.25 mg q.8 p.r.n., DuoNeb q.8, Lexapro 20 mg at bedt [place], heparin drip, Latanoprost eyedrops, Synthroid 125 mcg daily, Zosyn 2.25 g IV q.8, KCl 40 mEq ove r 2 hours, Seroquel 400 mg at bedtime, Zocor 40 mg at bedtime, currently on bicarbonate drip at 100 m L per hour, tramadol p.r.n. PAST MEDICAL HISTORY: Hypothyroidism, hyperlipidemia, glaucoma. The patient denies any history of C OPD, hypertension, coronary artery disease or CHF. PAST SURGICAL HISTORY: Status post hysterectomy, status post bilateral breast implant, status post c olonoscopy, recently status post laparoscopic appendectomy. SOCIAL HISTORY: The patient is and lives in [place], 3 children -- 1 and th e other 2 children are adopted. Smoked for 10 years, 1 pack a day. Alcohol, none. Status post bloo d transfusion. 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 Education, college graduate. ALLERGIES: None. TRAUMA: None. IMMUNIZATIONS: Up to date. HOSPITALIZATIONS: Please see past medical history. FAMILY HISTORY: No family history of ESRD. PHYSICAL EXAMINATION: VITAL SIGNS: Blood pressure is noted at 118/75, heart rate was noted to be at 107, respiratory rate 18, pulse ox 96%. GENERAL: Noted to be awake, seating comfortable, not in overt distress. SKIN: Adequate turgor. HEENT: She has pinkish conjunctivae, anicteric sclerae. NECK: No neck mass, no carotid bruits, no JVD. CHEST: No deformities. LUNGS: Clear breath sounds, no wheezing, no crackles. HEART: Normal sinus rhythm. No murmur, no gallops, no rubs. ABDOMEN: Globular, soft, nontender. No masses. Mild tenderness on the surgical site. EXTREMITIES: Trace edema. LABORATORY DATA: Laboratories of 01/10/2018, sodium 129, potassium 3.9, chloride 98, carbon dioxide 18, BUN 35, creatinine 3.09, glucose 117, magnesium 2.8, phosphorus 4.4, calcium 8.0. BNP 705. Mickey isol 10.4. IMAGING: Chest x-ray of 01/02/2018 showed interstitial/alveolar parenchymal changes and bilateral pl eural effusion. Chest x-ray of 01/09/2018, no evidence of CHF. Pulmonary perfusion imaging, currently pending. Urinalysis of 01/07/2018 showed a specific gravity of 1.046, relatively benign, no red cells, no whit e cells. ASSESSMENT AND PLAN: 1. Acute kidney injury -- consider hemodynamically mediated renal dysfunction. The patient's initia l urinalysis showed a very concentrated urine suggesting that this patient may have been prerenal. T he patient is currently getting gentle volume repletion. I think, currently on isotonic bicarbonate. Currently running at 100 mL per hour. I agree to hold off the diuretics temporarily. I will be re viewing urine chemistry and urinalysis again with this patient. We are trying to rule out this patie nt for the possibility of a superimposed acute tubular necrosis. For the moment, continue gentle vol ume repletion. 2. Acute hypoxemia -- being ruled out for pulmonary embolism. The results of the V/Q scan is currently pending. Previous CT scan with this patient showed that the kidneys are within normal. There is no indication for any acute dialytic intervention. Continue supportive care. We will reche ck base met and CBC in a.m.
[2018-01-10] MEDS: traMADol HCl 50 MG TAB PO PRN (19:11)
[2018-01-10 20:06] LABS: Bilirubin Negative (Negative); Blood, Urine Moderate (Negative); Clarity CLOUDY (Clear); Glucose, Urine (Dipstick) Negative (Negative); Leukocyte Negative (Negative); Nitrite Negative (Negative); Protein, Urine (Dipstick) Trace mg/dL (Neg-Trace); Specific Gravity, Urine 1.011 (1.002-1.036); Urobilinogen 0.2 mg/dL (0.2-1.0); pH, Urine 5.5 (5.0-9.0)
[2018-01-10 20:09] LABS: Bacteria/HPF None Seen HPF (None Seen); Pathc Cast-AUWi Flag 2.47 (0-2.49)
[2018-01-10 20:10] LABS: Yeast-AUWi Flag 39.1 (0-25.0)
[2018-01-10 20:25] LABS: Crystals/HPF 1+ AMORPH URATES HPF (Negative); RBC/HPF 0-3 HPF (0-3); Yeast-All Forms None Seen HPF (None Seen)
[2018-01-10 20:26] LABS: Hyaline Casts/LPF 0-3 HYALINE CAST LPF (0-3 Hyaline)
[2018-01-10] MEDS: Heparin 5,000 UNITS/ML VIAL SC SCH (21:24)
[2018-01-10] MEDS: Escitalopram Oxalate 20 mg Tablet PO SCH (21:29)
[2018-01-10] MEDS: Simvastatin 40 MG TAB PO SCH (21:30)
[2018-01-10] MEDS: Famotidine 20 MG TAB PO SCH (21:30)
[2018-01-11] MEDS: Acetaminophen 500 MG TAB PO SCH ×4 (00:31→17:50)
[2018-01-11] MEDS: Sodium Bicarbonate 150 MEQ in Dextrose 5% in Water 1,000 ML IV SCH (03:27)
[2018-01-11] MEDS: Piperacillin/Tazobactam 2.25 GM in Sodium Chloride 0.9% 100 ML IVPB SCH ×3 (03:27→20:09)
[2018-01-11 04:34] LABS: Anion Gap 13 mmol/L (10-20); BUN (Urea Nitrogen) 37 mg/dL (9.8-20.1); Calc. Creatinine Clearance 12 mL/min (70-130); Calcium 7.6 mg/dL (7.8-10.44); Carbon Dioxide 21 mmol/L (23-31); Chloride 98 mmol/L (98-107); Estimated GFR-MDRD 13; Glucose 102 mg/dL (83-110); Magnesium 3.1 mg/dL (1.6-2.6); Phosphorus 4.1 mg/dL (2.3-4.7); Potassium 4.3 mmol/L (3.5-5.1); Sodium 128 mmol/L (136-145)
[2018-01-11 04:49] LABS: Hemoglobin 12.3 g/dL (12.0-16.0); Mean Corpuscular HGB CONC 35.2 g/dL (32.0-36.0); Mean Corpuscular Hemoglobin 33.7 pg (27.0-31.0); Mean Corpuscular Volume 95.9 fL (78.0-98.0); Mean Platelet Volume 6.7 fL (7.4-10.4); Platelet Count 243 thou/uL (130-400); RBC Distribution Width 11.8 % (11.5-14.5); Red Blood Cell (RBC) Count 3.65 mill/uL (4.20-5.40); White Blood Cell (WBC) Count 8.4 thou/uL (4.8-10.8)
[2018-01-11 05:04] LABS: Band 21 % (5-11); Eosinophils 1 % (0-10); Lymphocytes 14 % (21-51); Monocytes 4 % (0-10); Myelocyte 2 % (0-0); Neutrophil 58 % (42-75)
[2018-01-11 05:06] LABS: Manual Diff?? YES; PLT Morphology Comment Appears Adequate; RBC Morphology Normal
[2018-01-11 05:07] LABS: MDiff Complete? YES
[2018-01-11] MEDS: Levothyroxine Sodium 125 MCG TAB PO SCH (06:02)
[2018-01-11] MEDS: ALPRAZolam 0.25 MG TAB PO PRN ×2 (08:24→17:50)
[2018-01-11] MEDS: Heparin 5,000 UNITS/ML VIAL SC SCH ×3 (08:28→20:09)
[2018-01-11] MEDS: Brinzolamide 1% Ophth Soln 10 ml Bottle EA EYE SCH ×2 (09:22→20:10)
[2018-01-11] MEDS: Latanoprost 0.005% Ophth Soln 2.5 ml Bottle EA EYE SCH (09:25)
[2018-01-11] MEDS ORDERED: Furosemide 40 MG/4 ML VIAL SLOW IVP SCH (09:45)
[2018-01-11] MEDS ORDERED: Furosemide 100 MG/10 ML VIAL SLOW IVP SCH (09:45)
--- NOTE | 2018-01-11 10:54 | PRG ---
DATE OF SERVICE: 01/11/2018 SERVICE: Renal Medicine. SUBJECTIVE: Ms. Randall is a 72-year-old white female seen for an acute kidney injury. She was yeste rday noted to be hypoxemic. A V/Q scan and Doppler was done, which essentially showed no acute evide nce of thrombosis. Chest x-ray has been done today and is currently pending. She has been feeling m ildly short of breath. Of interest, it is that the chest x-ray yesterday showed some increased lung markings. She also had a cardiac echo, which showed a normal ejection fraction of 55%-60%. However, there is a suggestion of some diastolic dysfunction. Since the patient is still mildly short of maryanne ath, although this is better than yesterday, we will give a 1 time dose of Lasix 40 mg IV. She has b een receiving IV fluid since yesterday without any improvement of the renal function. Creatinine was noted today at 3.53 and yesterday this was 3.09. Prior to yesterday, the creatinine w as noted at 2.31. I did review the urinalysis and it was relatively benign. However, this does not rule out the possib ility of a superimposed acute tubular necrosis. Blood pressure is ranging from 99/55-135/74. OBJECTIVE: GENERAL: Noted to be awake, alert, comfortable, not in overt distress. SKIN: Adequate turgor. HEENT: Pinkish conjunctivae. Anicteric sclerae. NECK: No neck mass, no carotid bruits. No JVD. LUNGS: Decreased breath sounds, but no wheezing. HEART: Normal sinus rhythm. No murmur, no gallops or rubs. ABDOMEN: Globular, soft, nontender, no masses. EXTREMITIES: No edema, no deformities. MEDICATIONS: Of 01/11/2018 was reviewed. LABORATORY DATA: Of 01/11/2018, sodium 128, potassium 4.3, chloride 98, carbon dioxide 21. BUN is p ending. Creatinine is 3.53. Glucose 102, calcium 7.1, phosphorus is 4.1, magnesium is 3.1. BNP 783 . Urinalysis showed a specific gravity 1.011, no protein, RBCs 0-3, WBC 4-6, no pigmented granular c ast. IMAGING: Cardiac echo showed normal EF with suggestion of diastolic dysfunction. V/Q scan/pulmonary perfusion imaging showed low probability for PE. Venogram of the legs showed no evidence of DVT of lower extremity. ASSESSMENT AND PLAN: 1. Acute kidney injury - still I suspect the possibility of a hemodynamically mediated renal dysfunc tion. However, I could not rule out the possibility that there may be a superimposed acute tubular n ecrosis. Renal function is not improved in spite of the volume repletion. The patient's creatinine is noted at 3.53, yesterday this was 3.09. This may be suggesting there is some plateauing of the re nal dysfunction. For the moment, continue supportive care. Agree to hold off IV fluid. Due to the indirect evidence of diastolic dysfunction, we will give a 1 time dose of Lasix 40 mg IV. We will r eview chest x-ray today. Overall, continue current supportive care. There is no indication for any acute dialytic intervention. I did discuss this at length with the patient and her . 2. Mild hyponatremia, consider the possibility of a dilutional hyponatremia from a possible congesti ve heart failure - from ? of diastolic dysfunction. 3. Status post laparoscopic appendectomy - stable. Surgery is following. Agree with current management.
--- NOTE | 2018-01-11 10:58 | RAD ---
PORTABLE AP CHEST XRAY: DATE: 01/11/18. HISTORY: Possible fluid overload. Followup evaluation. COMPARISON: 01/10/18. FINDINGS: Persistent bilateral interstitial and alveolar opacities are again seen within the lungs involving th e left mid and lower lung zone as well as right lower lobe. Probable bilateral pleural effusions mor e prominent on the left. Cardiac silhouette is within normal limits. There has been no significant interval change from prior study. IMPRESSION: 1. Overall stable chest with interstitial and alveolar opacities which may be related to bilateral p neumonia, atypical pneumonia is a possibility. 2. Bilateral pleural effusions. POS: [facility]
[2018-01-11] MEDS: traMADol HCl 50 MG TAB PO PRN (17:50)
[2018-01-11] MEDS: Simvastatin 40 MG TAB PO SCH (20:09)
[2018-01-11] MEDS: Escitalopram Oxalate 20 mg Tablet PO SCH (20:09)
[2018-01-11] MEDS: Famotidine 20 MG TAB PO SCH (20:10)
[2018-01-12] MEDS: Acetaminophen 500 MG TAB PO SCH ×4 (00:16→18:14)
[2018-01-12] MEDS: Piperacillin/Tazobactam 2.25 GM in Sodium Chloride 0.9% 100 ML IVPB SCH ×3 (04:13→20:52)
[2018-01-12 05:27] LABS: Anion Gap 13 mmol/L (10-20); BUN (Urea Nitrogen) 40 mg/dL (9.8-20.1); Calc. Creatinine Clearance 12 mL/min (70-130); Carbon Dioxide 24 mmol/L (23-31); Chloride 97 mmol/L (98-107); Estimated GFR-MDRD 14; Glucose 95 mg/dL (83-110); Magnesium 2.3 mg/dL (1.6-2.6); Phosphorus 4.3 mg/dL (2.3-4.7); Sodium 131 mmol/L (136-145)
[2018-01-12 05:43] LABS: Band 4 % (5-11); Hemoglobin 11.8 g/dL (12.0-16.0); Lymphocytes 18 % (21-51); MDiff Complete? YES; Mean Corpuscular HGB CONC 35.4 g/dL (32.0-36.0); Mean Corpuscular Hemoglobin 33.7 pg (27.0-31.0); Mean Corpuscular Volume 95.2 fL (78.0-98.0); Mean Platelet Volume 6.4 fL (7.4-10.4); Monocytes 9 % (0-10); Neutrophil 69 % (42-75); PLT Morphology Comment Appears Adequate; Platelet Count 243 thou/uL (130-400); RBC Distribution Width 11.9 % (11.5-14.5); RBC Morphology Normal; Red Blood Cell (RBC) Count 3.52 mill/uL (4.20-5.40); White Blood Cell (WBC) Count 7.8 thou/uL (4.8-10.8)
[2018-01-12] MEDS: Levothyroxine Sodium 125 MCG TAB PO SCH (06:36)
[2018-01-12] MEDS ORDERED: Furosemide 40 MG/4 ML VIAL SLOW IVP SCH (08:15)
--- NOTE | 2018-01-12 09:28 | PRG ---
DATE OF SERVICE: 01/12/2018 SUBJECTIVE: Ms. Randall is a 72-year-old white female who was seen with the possibility of a hemodyna mically mediated renal dysfunction is being entertained with this patient. She was also at one time noted to be hypoxemic. A VQ scan and DVT did not show any evidence of thrombotic pathology. The rep eat chest x-ray yesterday showed bilateral pleural effusions and with interstitial ____. Cardiac ech o showed normal EF, diastolic dysfunction was noted. She was given a 1 time dose of Lasix yesterday and she produced about 3 liters of urine in the last 24 hours. She is feeling better. OBJECTIVE: VITAL SIGNS: Blood pressure is 97/49 ranging to 108/52, heart rate 83, respiratory rate 15, temperat ure 98, pulse ox 95%. GENERAL: Noted to be awake, comfortable, not in overt distress. SKIN: Adequate turgor. HEENT: She has pinkish conjunctivae, anicteric sclerae. NECK: No neck mass, no carotid bruits, no JVD. CHEST: No deformities. LUNGS: Decreased breath sounds. HEART: Normal sinus rhythm. No murmur or gallop. No rub. ABDOMEN: Flat, soft, nontender, obese, no edema. MEDICATIONS: 01/12/2018 - Reviewed. LABORATORY DATA: 01/12/2018 - White count 7.8, hemoglobin 11.8, hematocrit 33.5, sodium 131, potassi um 3, chloride 97, carbon dioxide 24, BUN 40, creatinine 3.34. Phosphorus is 4.3, magnesium 2.3. BN P 783.5. Chest x-ray of 01/11/2018 showed increased alveolar infiltrates as well as bilateral pleural effusion . ASSESSMENT AND PLAN: 1. Acute kidney injury - consider still a hemodynamically mediated renal dysfunction. She may have congestive heart failure from diastolic dysfunction. Tolerated IV Lasix yesterday. Agree to give he r 1 more dose of Lasix 40 mg IV Please note renal function is stabilizing, as a matter of fact, slig htly improved compared to yesterday. 2. Congestive heart failure - add Lasix. 3. Status post laparoscopic appendectomy, doing well. Continue supportive care. 4. Hypokalemia, p.r.n. potassium replacement. Recheck base met and CBC in a.m.
[2018-01-12] MEDS: Brinzolamide 1% Ophth Soln 10 ml Bottle EA EYE SCH ×2 (09:45→20:50)
[2018-01-12] MEDS: Heparin 5,000 UNITS/ML VIAL SC SCH ×3 (09:47→20:54)
[2018-01-12] MEDS: Potassium Chloride 20 MEQ in Premix Bag 1 BAG IVPB SCH ×2 (09:47→12:34)
[2018-01-12] MEDS: traMADol HCl 50 MG TAB PO PRN ×2 (09:47→19:06)
[2018-01-12] MEDS: ALPRAZolam 0.25 MG TAB PO PRN ×2 (09:47→19:06)
[2018-01-12] MEDS: Latanoprost 0.005% Ophth Soln 2.5 ml Bottle EA EYE SCH (10:04)
[2018-01-12 10:45] LABS: Hemoglobin 12.6 g/dL (12.0-16.0); Platelet Count 248 thou/uL (130-400)
--- NOTE | 2018-01-12 11:51 | PRG ---
DATE OF SERVICE: 01/12/2018 HISTORY OF PRESENT ILLNESS: Ms. Randall is a 72-year-old woman who is postoperative day #5 status post laparoscopic appendectomy and drainage of periappendiceal abscess. Postoperative course has been complicated by acute congestive heart failure, acute kidney injury and adult respiratory dis tress syndrome. Currently the patient reports no dyspnea. She had a good urinary output over the last 24 hours. In fact her I's and O's in the last 24 hours are recorded at negative 1.5 liters. OBJECTIVE: VITAL SIGNS: This morning includes blood pressure 97/49, pulse is 96, respiratory rate is 24. Maxim um temperature in the last 24 hours is 98.9 degrees Fahrenheit, oxygen saturation is 94% on 2 liters by nasal cannula oxygen. HEENT: Reveals pupils equal, round, reactive to light and accommodation. She has no jugular venous distention noted. HEART: Reveals regular rate and rhythm, no murmurs or gallops auscultated. LUNGS: Reveals a few basilar rhonchi. Breathing is otherwise regular and unlabored. ABDOMEN: Soft and nondistended with minimal incisional tenderness to palpation. Clearly she has no gross rebound tenderness on examination. NEUROLOGIC: Reveals no focal deficits present. LABORATORY DATA: Today includes CBC with 7800 white blood cells, hemoglobin and hematocrit 11.8 and 33.5 respectively. Platelet count is 243,000. Metabolic profile: Sodium 131, potassium 3.0, chlori de is 97, bicarbonate is 24, BUN is 40, creatinine is 3.34, marginally improved from yesterday's crea tinine of 3.53. Glucose is 95. Magnesium is 2.3, phosphorus is 4.3. ASSESSMENT AND PLAN: 1. Postop day #5, status post laparoscopic appendectomy. 2. Periappendiceal abscess, status post laparoscopic drainage. 3. Acute kidney injury, stable. 4. Acute respiratory distress syndrome, improving. 5. Acute diastolic congestive heart failure, improving. 6. Acute hypokalemia. PLAN: 1. Correct abnormal electrolytes. 2. We will advance diet as the patient tolerates. 3. We will give another dose of a diuretic this morning and monitor the patient's urinary output and clinical examination for improvement. The patient will be transferred to general floor where her activity will be increased per physical an d occupational therapy. The above findings and plan discussed with the patient and her at [facility]. They both voiced understanding of information given. I have answered their questions.
--- NOTE | 2018-01-12 13:34 | EKG ---
Test Reason : Blood Pressure : / mmHG Vent. Rate : 105 BPM Atrial Rate : 105 BPM P-R Int : 154 ms QRS Dur : 080 ms QT Int : 302 ms P-R-T Axes : 062 045 055 degrees QTc Int : 399 ms Sinus tachycardia Low voltage QRS Nonspecific T wave abnormality Abnormal ECG When compared with ECG of 27-APR-2017 13:28, Sinus rhythm has replaced Junctional rhythm Nonspecific T wave abnormality, worse in Inferior leads Nonspecific T wave abnormality, improved in Anterior leads Nonspecific T wave abnormality now evident in Lateral leads QT has shortened Confirmed by JAROCHO HARMON, SLucy ([id number]) on 01/12/2018 1:34:27 PM Referred By: FRANTZ Confirmed By:DR. Amelia AVENDAÑO MD
[2018-01-12] MEDS: Famotidine 20 MG TAB PO SCH (20:53)
[2018-01-12] MEDS: Simvastatin 40 MG TAB PO SCH (20:53)
[2018-01-12] MEDS: Escitalopram Oxalate 20 mg Tablet PO SCH (20:54)
[2018-01-13] MEDS: Acetaminophen 500 MG TAB PO SCH ×4 (00:05→17:21)
[2018-01-13] MEDS: Piperacillin/Tazobactam 2.25 GM in Sodium Chloride 0.9% 100 ML IVPB SCH ×3 (05:17→20:28)
[2018-01-13] MEDS: Levothyroxine Sodium 125 MCG TAB PO SCH (05:36)
[2018-01-13] MEDS: Heparin 5,000 UNITS/ML VIAL SC SCH ×3 (08:51→20:31)
[2018-01-13] MEDS: Brinzolamide 1% Ophth Soln 10 ml Bottle EA EYE SCH ×2 (08:52→21:06)
[2018-01-13] MEDS: Latanoprost 0.005% Ophth Soln 2.5 ml Bottle EA EYE SCH (08:53)
[2018-01-13 09:31] LABS: Anion Gap 16 mmol/L (10-20); BUN (Urea Nitrogen) 43 mg/dL (9.8-20.1); Calc. Creatinine Clearance 12 mL/min (70-130); Calcium 8.7 mg/dL (7.8-10.44); Carbon Dioxide 25 mmol/L (23-31); Chloride 96 mmol/L (98-107); Estimated GFR-MDRD 13; Glucose 76 mg/dL (83-110); Magnesium 2.1 mg/dL (1.6-2.6); Potassium 3.3 mmol/L (3.5-5.1); Sodium 134 mmol/L (136-145)
[2018-01-13] MEDS: traMADol HCl 50 MG TAB PO PRN (09:46)
--- NOTE | 2018-01-13 10:11 | PDOC.GSPN ---
<TheoSonam - Last Filed: 01/13/18 10:57> Surgery Progress Note: Subj - Subjective Patient reports: no new complaints, bowel movement, feels better, flatus, tolerating liquids well Narrative: Reports pain is well controlled. Some abdominal tenderness. Tolerating PO intake. No new complaints. Surgery Progress Note: Obj - Vital signs Vital signs: Vital Signs - Most Recent Temp Pulse Resp BP Pulse Ox 97.5 F L 99 18 113/69 92 L 01/13/18 07:09 01/13/18 07:34 01/13/18 07:34 01/13/18 07:09 01/13/18 07:34 - Physical Exam General: no distress, well developed ENT: normal mucosa, normal nares Cardiovascular: regular rate and rhythm, no murmur Respiratory: clear to auscultation Abdomen: soft, positive bowel sounds, appropriately tender (bilateral lower quadrants) Psychiatric: memory intact, speech is normal Wound: healing well Surgery Progress Note: Results - Labs Result Diagrams: 01/12/18 10:06 01/13/18 08:37 Lab results: Laboratory Results - last 24 hr 01/13/18 08:37 Sodium 134 L Potassium 3.3 L Chloride 96 L Carbon Dioxide 25 Anion Gap 16 BUN 43 H Creatinine 3.42 H Estimated GFR (MDRD) 13 Glucose 76 L Calcium 8.7 Phosphorus 6.0 H Magnesium 2.1 Surgery Progress Note: A/P - Plan Plan: POD #6 s/p laparoscopic appendectomy complicated by periappendiceal abscess s/p laparoscopic drainage - pain well controlled - increase activity, PT/OT - d/c randhawa today - advance diet as tolerated - on Zosyn (started 01/09) - Will consider repeat CT abdomen to evaluate for abscess resolution pending improved kidney function SEE - Cr 3.42 today. Seems to have reached plateau. - will continue to monitor Acute Hypokalemia - 3.3 today. will replace. Patient was examined, evaluated, and discussed with Dr. Frias. I performed a history and physical examination of the patient and discussed his management with the resident. I reviewed the resident's note and agree with the documented findings and plan of care except for the following. <Shorty Frias - Last Filed: 01/15/18 16:41> Surgery Progress Note: Subj - Subjective Patient reports: pain is less, shortness of breath Surgery Progress Note: Obj - Vital signs Vital signs: Vital Signs - Most Recent Temp Pulse Resp BP Pulse Ox 98.3 F 99 18 127/67 95 01/15/18 11:05 01/15/18 13:06 01/15/18 13:06 01/15/18 11:05 01/15/18 13:06 Surgery Progress Note: Results - Labs Result Diagrams: 01/15/18 05:43 01/15/18 05:43 Lab results: Laboratory Results - last 24 hr 01/15/18 01/15/18 01/15/18 05:43 05:43 08:59 WBC 13.6 H RBC 3.74 L Hgb 12.4 Hct 36.3 MCV 97.1 MCH 33.0 H MCHC 34.0 RDW 12.2 Plt Count 321 MPV 6.2 L Neutrophils % (Manual) 56 Band Neuts % (Manual) 18 H Lymphocytes % (Manual) 15 L Reactive Lymphs % 2 Monocytes % (Manual) 7 Metamyelocytes % (Man) 2 H Neutrophils # Not Reportable Lymphocytes # Not Reportable RBC Morph Comment Normal PT 14.3 INR 1.1 APTT 38.5 H Sodium 139 Potassium 3.5 Chloride 97 L Carbon Dioxide 23 Anion Gap 23 H BUN 38 H Creatinine 3.26 H Estimated GFR (MDRD) 14 Glucose 78 L Calcium 8.7 Phosphorus 5.5 H Magnesium 1.9 - Radiology Interpretation CT scan - abdomen Status: report reviewed by me
[2018-01-13] MEDS ORDERED: Potassium Chloride 20 MEQ TAB PO SCH (10:30)
--- NOTE | 2018-01-13 16:32 | PRG ---
DATE OF SERVICE: 01/13/2018 RENAL MEDICINE SUBJECTIVE: Ms. Randall is a 72-year-old white female who is status post laparoscopic appendectomy, h ad been followed up for her acute kidney injury. Creatinine has been stabilizing. She was noted to be in mild CHF from a diastolic dysfunction. She has received diuretics and has been diuresing well. She tells me her breathing is much better and she is feeling better. PHYSICAL EXAMINATION: VITAL SIGNS: Blood pressure is 103/60, heart rate 109, respiratory rate 22, temperature 98, pulse ox 92%. GENERAL: Noted to be awake, alert, supine, comfortable, not in distress. SKIN: Adequate turgor. HEENT: She has pinkish conjunctivae, anicteric sclerae. NECK: No neck mass, no carotid bruits, no JVD. CHEST: No deformities. LUNGS: Clear breath sounds. No wheezing, no crackles. HEART: Normal sinus rhythm. No murmur, no gallops, no rubs. ABDOMEN: Globular, soft, nontender. EXTREMITIES: No edema. MEDICATIONS: Medications of 01/13/2018 were reviewed. LABORATORY DATA: Laboratories of 01/12/2018, white count 12.6, hematocrit 35.9. Sodium was 134, pot assium 3.3, chloride 96, carbon dioxide 25, BUN 43, creatinine 3.42, phosphorus 6.0. Calcium 8.7, magnesium 2.1. ASSESSMENT AND PLAN: 1. Acute kidney injury -- stable renal function. Creatinine is noted to be fluctuating. Creatinine 3.4, slightly higher from yesterday of 3.34. Again, this may simply be a reflection of the recent d iuretic regimen with this patient. Continue to hold diuretics. No indication for any dialytic inter vention. GFR is 13 mL per minute. We will hold off any diuretics for the moment with this patient. 2. Shortness of breath, much improved. ? of congestive heart failure from diastolic dysfunction. C ontinue supportive care and p.r.n. diuretics. 3. Status post laparoscopic appendectomy, stable, doing well. We will check base met and CBC in a.m.
[2018-01-13] MEDS: Famotidine 20 MG TAB PO SCH (20:29)
[2018-01-13] MEDS: Simvastatin 40 MG TAB PO SCH (20:29)
[2018-01-13] MEDS: Escitalopram Oxalate 20 mg Tablet PO SCH (20:30)
[2018-01-14] MEDS: Acetaminophen 500 MG TAB PO SCH ×4 (00:28→17:06)
[2018-01-14] MEDS: Piperacillin/Tazobactam 2.25 GM in Sodium Chloride 0.9% 100 ML IVPB SCH ×3 (03:27→21:26)
[2018-01-14 05:36] LABS: Anion Gap 17 mmol/L (10-20); BUN (Urea Nitrogen) 41 mg/dL (9.8-20.1); Calc. Creatinine Clearance 12 mL/min (70-130); Calcium 8.6 mg/dL (7.8-10.44); Carbon Dioxide 22 mmol/L (23-31); Chloride 96 mmol/L (98-107); Estimated GFR-MDRD 13; Glucose 118 mg/dL (83-110); Magnesium 1.9 mg/dL (1.6-2.6); Phosphorus 5.7 mg/dL (2.3-4.7); Potassium 3.4 mmol/L (3.5-5.1); Sodium 132 mmol/L (136-145)
[2018-01-14] MEDS: Levothyroxine Sodium 125 MCG TAB PO SCH (05:45)
[2018-01-14 05:46] LABS: Band 1 % (5-11); Eosinophils 3 % (0-10); Lymphocytes 15 % (21-51); MDiff Complete? YES; Mean Corpuscular HGB CONC 35.1 g/dL (32.0-36.0); Mean Corpuscular Hemoglobin 33.6 pg (27.0-31.0); Mean Corpuscular Volume 95.8 fL (78.0-98.0); Mean Platelet Volume 6.2 fL (7.4-10.4); Monocytes 8 % (0-10); Neutrophil 73 % (42-75); PLT Morphology Comment Appears Adequate; Platelet Count 302 thou/uL (130-400); RBC Distribution Width 12.2 % (11.5-14.5); RBC Morphology Normal; Red Blood Cell (RBC) Count 3.56 mill/uL (4.20-5.40); White Blood Cell (WBC) Count 9.2 thou/uL (4.8-10.8)
[2018-01-14 06:53] LABS: Hemoglobin 11.9 g/dL (12.0-16.0); Mean Corpuscular HGB CONC 35.5 g/dL (32.0-36.0); Mean Corpuscular Volume 95.6 fL (78.0-98.0); Mean Platelet Volume 6.1 fL (7.4-10.4); Platelet Count 297 thou/uL (130-400); RBC Distribution Width 12.2 % (11.5-14.5); Red Blood Cell (RBC) Count 3.51 mill/uL (4.20-5.40); White Blood Cell (WBC) Count 9.3 thou/uL (4.8-10.8)
[2018-01-14] MEDS: Latanoprost 0.005% Ophth Soln 2.5 ml Bottle EA EYE SCH (08:23)
[2018-01-14] MEDS: Brinzolamide 1% Ophth Soln 10 ml Bottle EA EYE SCH (08:23)
[2018-01-14] MEDS: Heparin 5,000 UNITS/ML VIAL SC SCH ×3 (08:24→21:29)
[2018-01-14 08:33] LABS: Band 9 % (5-11); Eosinophils 2 % (0-10); Lymphocytes 21 % (21-51); MDiff Complete? YES; Metamyelocyte 3 % (0-0); Monocytes 11 % (0-10); Myelocyte 1 % (0-0); Neutrophil 49 % (42-75); RBC Morphology Normal; Reactive Lymphocytes 4 % (0-10)
--- NOTE | 2018-01-14 09:54 | PDOC.GSPN ---
Surgery Progress Note: Subj - Subjective Patient reports: no new complaints, afebrile, bowel movement, feels better, pain is less, tolerating a regular diet, voiding w/o difficulty (Has been ambulating in the halls well. Will desat when off supplemental O2.) Surgery Progress Note: Obj - Vital signs Vital signs: Vital Signs - Most Recent Temp Pulse Resp BP Pulse Ox 98.1 F 96 16 158/83 H 93 L 01/14/18 08:33 01/14/18 08:40 01/14/18 08:40 01/14/18 08:27 01/14/18 09:34 - Physical Exam General: no distress, well developed, well nourished Cardiovascular: regular rate and rhythm, no murmur Respiratory: clear to auscultation, normal respiratory effort Abdomen: soft, nondistended, positive bowel sounds, appropriately tender Psychiatric: memory intact Wound: dressing clean,dry,intact, healing well Surgery Progress Note: Results - Labs Result Diagrams: 01/14/18 04:35 01/14/18 04:35 Lab results: Laboratory Results - last 24 hr 01/14/18 01/14/18 01/14/18 04:35 04:35 04:35 WBC 9.3 9.2 RBC 3.51 L 3.56 L Hgb 11.9 L 12.0 Hct 33.6 L 34.1 L MCV 95.6 95.8 MCH 34.0 H 33.6 H MCHC 35.5 35.1 RDW 12.2 12.2 Plt Count 297 302 MPV 6.1 L 6.2 L Neutrophils % (Manual) 49 73 Band Neuts % (Manual) 9 1 L Lymphocytes % (Manual) 21 15 L Reactive Lymphs % 4 Monocytes % (Manual) 11 H 8 Eosinophils % (Manual) 2 3 Metamyelocytes % (Man) 3 H Myelocytes % 1 H Plt Morphology Comment Appears Adequate RBC Morph Comment Normal Normal Sodium 132 L Potassium 3.4 L Chloride 96 L Carbon Dioxide 22 L Anion Gap 17 BUN 41 H Creatinine 3.37 H Estimated GFR (MDRD) 13 Glucose 118 H Calcium 8.6 Phosphorus 5.7 H Magnesium 1.9 Surgery Progress Note: A/P - Problem (1) S/P appendectomy Current Visit: Yes Code(s): Z90.49 - ACQUIRED ABSENCE OF OTHER SPECIFIED PARTS OF DIGESTIVE TRACT Status: Acute (2) Appendiceal abscess Current Visit: Yes Code(s): K35.3 - ACUTE APPENDICITIS WITH LOCALIZED PERITONITIS Status: Acute (3) SEE (acute kidney injury) Current Visit: Yes Code(s): N17.9 - ACUTE KIDNEY FAILURE, UNSPECIFIED Status : Acute (4) Hypokalemia Current Visit: Yes Code(s): E87.6 - HYPOKALEMIA Status: Acute - Plan Plan: POD #7 s/p laparoscopic appendectomy complicated by periappendiceal abscess s/p laparoscopic drainage - pain well controlled - increase activity, PT/OT - requiring supplemental O2, decreased to 2L today and will see how patient tolerates - advance diet as tolerated - on Zosyn (started 01/09) - Will consider repeat CT abdomen to evaluate for abscess resolution pending improved kidney function SEE - Cr 3.42--> 3.37 today. Seems to have reached plateau. - will continue to monitor - appreciate recommendations from Dr. Linares Acute Hypokalemia - 3.4 today - will monitor Disposition: Pending rehab consult. Patient was examined, evaluated, and discussed with Dr. Frias. Dr. Frias performed a history and physical examination of the patient and discussed his management with the resident. Dr. Frias reviewed the resident's note and agree with the documented findings and plan of care except for the following.
--- NOTE | 2018-01-14 09:57 | PRG ---
DATE OF SERVICE: 01/14/2018 SUBJECTIVE: Ms. Randall is a 72-year-old white female who was admitted for appendicitis, status post laparoscopic appendectomy and was seen by the Renal Service for acute kidney injury. Initially felt that she may have a hemodynamically mediated renal dysfunction, but this remains unimproved and consi deration for possible mild acute tubular necrosis, remains. Renal function remained stable for the l ast 3 days. She is still occasionally short of breath on exertion, but at rest, she is doing well. Consideration for rehab is being made. I did discuss the case with Dr. Frias will repeat another im aging of the abdomen to rule out any further abscess. No other complaints. PHYSICAL EXAMINATION: VITAL SIGNS: Blood pressure this 158/83, heart rate 96, respiratory rate 20, temperature 98.1, pulse ox 95%. GENERAL: Noted to be awake, supine, comfortable, not in distress. SKIN: Adequate turgor. HEENT: She has pinkish conjunctivae, anicteric sclerae. NECK: No neck mass, no carotid bruits, no JVD. CHEST: No deformities. LUNGS: Clear breath sounds, no wheezing, no crackles. HEART: Normal sinus rhythm. No murmur, no gallops or rubs. ABDOMEN: Globular, soft, nontender, no masses. EXTREMITIES: No edema. MEDICATIONS: 01/14/2018 - Reviewed. LABORATORY DATA: 01/14/2018 - Sodium 132, potassium 3.4, chloride 96, carbon dioxide 22, BUN 41, cre atinine 3.37, glucose 118, calcium 8.6, phosphorus 5.7, magnesium 1.9. White count 9.2, hemoglobin 1 2. ASSESSMENT AND PLAN: 1. Acute kidney injury - I am considering the possibility of a superimposed acute tubular necrosis d ue to improved renal function. Of interest, the renal function remains stable and is not worsening. It is possible that she will eventually recover to a near normal baseline GFR. Continue supportive care. Currently off diuretics. 2. Status post laparoscopic appendectomy, doing well on IV antibiotics. Dr. Frias is following. Fo r a repeat CT scan of the abdomen to rule out any abscess. 3. Considering for rehab placement.
--- NOTE | 2018-01-14 12:16 | CT ---
CT ABDOMEN AND PELVIS WITHOUT CONTRAST: Date: 01/14/18 HISTORY: Evaluate for abscess. History of appendectomy and ruptured appendix 7 days prior. COMPARISON: CT abdomen and pelvis dated 04/27/17 and 01/07/18. FINDINGS: There are moderate atelectatic changes of both lung bases. There are new bilateral moderate sized ple ural effusions. There are small foci of intraperitoneal gas. There appears to be a collection of gas along the greate r curvature of the stomach. There are dilated loops of small bowel throughout the abdomen. Contrast has not reached the distal sm all bowel loops. There is contrast within the rectal vault from the exam on 01/07/18. There is also a small collection of fluid along the appendectomy surgical site. No definite extravasa tion of contrast. Small foci of extraluminal gas left hemipelvis. Remainder of the findings are unchanged. IMPRESSION: 1. Recent appendectomy changes with large volume fluid in the pelvis. There also appears to be intra peritoneal gas, as well as dilated loops of small bowel, which can be sequelae of ileus. Evaluation f or abscess is limited without contrast enhanced study. 2. Small focal area of contrast, likely within a fold within the cecal apex, axial image 50, coronal image 72. If patient's clinical course does not improve, consider a contrast enhanced study with pos t study dialysis. POS: [facility]
[2018-01-14] MEDS: traMADol HCl 50 MG TAB PO PRN (12:52)
[2018-01-14] MEDS: Ondansetron HCl/PF 4 MG/2 ML Vial IVP PRN (13:48)
[2018-01-14] MEDS: Promethazine HCl 25 MG/ML VIAL IM PRN (18:46)
[2018-01-14] MEDS: Famotidine 20 MG TAB PO SCH (21:27)
[2018-01-14] MEDS: Escitalopram Oxalate 20 mg Tablet PO SCH (21:28)
[2018-01-14] MEDS: Simvastatin 40 MG TAB PO SCH (21:28)
[2018-01-15] MEDS: Ondansetron HCl/PF 4 MG/2 ML Vial IVP PRN (01:08)
[2018-01-15] MEDS: Brinzolamide 1% Ophth Soln 10 ml Bottle EA EYE SCH ×3 (01:53→22:46)
[2018-01-15] MEDS: Acetaminophen 500 MG TAB PO SCH ×5 (01:53→23:49)
[2018-01-15] MEDS: Piperacillin/Tazobactam 2.25 GM in Sodium Chloride 0.9% 100 ML IVPB SCH ×3 (04:18→19:56)
[2018-01-15] MEDS: Promethazine HCl 25 MG/ML VIAL IM PRN (04:48)
[2018-01-15 06:26] LABS: Anion Gap 23 mmol/L (10-20); BUN (Urea Nitrogen) 38 mg/dL (9.8-20.1); Calc. Creatinine Clearance 13 mL/min (70-130); Calcium 8.7 mg/dL (7.8-10.44); Carbon Dioxide 23 mmol/L (23-31); Chloride 97 mmol/L (98-107); Estimated GFR-MDRD 14; Glucose 78 mg/dL (83-110); Magnesium 1.9 mg/dL (1.6-2.6); Phosphorus 5.5 mg/dL (2.3-4.7); Potassium 3.5 mmol/L (3.5-5.1); Sodium 139 mmol/L (136-145)
[2018-01-15] MEDS: Levothyroxine Sodium 125 MCG TAB PO SCH (06:36)
[2018-01-15 06:40] LABS: Hemoglobin 12.4 g/dL (12.0-16.0); Mean Corpuscular Volume 97.1 fL (78.0-98.0); Mean Platelet Volume 6.2 fL (7.4-10.4); Platelet Count 321 thou/uL (130-400); RBC Distribution Width 12.2 % (11.5-14.5); Red Blood Cell (RBC) Count 3.74 mill/uL (4.20-5.40); White Blood Cell (WBC) Count 13.6 thou/uL (4.8-10.8)
[2018-01-15 07:16] LABS: Band 18 % (5-11); Lymphocytes 15 % (21-51); MDiff Complete? YES; Metamyelocyte 2 % (0-0); Monocytes 7 % (0-10); Neutrophil 56 % (42-75); RBC Morphology Normal; Reactive Lymphocytes 2 % (0-10)
[2018-01-15] MEDS: Latanoprost 0.005% Ophth Soln 2.5 ml Bottle EA EYE SCH (08:47)
[2018-01-15] MEDS: Heparin 5,000 UNITS/ML VIAL SC SCH ×3 (08:47→19:57)
[2018-01-15 09:25] LABS: INR-International Normal Ratio 1.1; Prothrombin Time 14.3 SEC (12.0-14.7)
[2018-01-15 09:26] LABS: PTT 38.5 SEC (22.9-36.1)
--- NOTE | 2018-01-15 10:00 | PRG ---
DATE OF SERVICE: 01/15/2018 SUBJECTIVE: Ms. Randall is a 72-year-old white female was admitted for acute appendicitis, status po st laparoscopic appendectomy. The patient has been having abdominal pain yesterday. Surgery reevalu ated the patient. CT scan of the abdomen and pelvis was done. A small focal area of contrast likely within the cecal apex suggested that there may be an underlying abscess. The patient is scheduled f or drainage of her abscess. The renal function has been stable. I think the creatinine has plateaue d at the present time. Most recent creatinine now is 3.26. Yesterday, this was 3.37 and the creatin ine peaked at the value of 3.53 several days ago. This patient I feel may most likely have underlyin g acute tubular necrosis. No other complaints. No chest pain or shortness of breath. The patient does complain of abdominal f ullness. PHYSICAL EXAMINATION: VITAL SIGNS: Blood pressure is 130/75, heart rate 101, temperature 98.7, respiratory rate 18, pulse oximetry 91%. GENERAL: Noted to be awake, alert, supine, comfortable. SKIN: Adequate turgor. HEENT: Pinkish conjunctivae. Anicteric sclerae. NECK: No neck mass, no carotid bruits, no JVD. CHEST: No deformities. LUNGS: Clear breath sounds, no wheezing, no crackles. HEART: Normal sinus rhythm. No murmur, no gallops, no rubs. ABDOMEN: Globular, soft, mildly tender. EXTREMITIES: No edema, no deformities. MEDICATIONS: 01/15/2018 - Reviewed. LABORATORY: 01/15/2018 - White count 13.6, hemoglobin 12.4, sodium 139, potassium 3.5, chloride 97, carbon dioxide 23, BUN 38, creatinine 3.26, phosphorus 5.5, magnesium 1.9, calcium 8.7. White count is 13.6, hemoglobin 12.4. ASSESSMENT AND PLAN: 1. Acute kidney injury - initially, we felt that there was a hemodynamically mediated renal dysfunct ion. However, this did not improve with volume. She currently has been diuresed in the past due to a possible superimposed acute tubular necrosis. Renal function is slowly improving. Continue curren t supportive management. There is no indication for any dialytic intervention. 2. Status post appendectomy. Development of intra-abdominal abscess. The patient is scheduled for drainage of the abscess. She continues to be on IV antibiotics. Overall I agree with current management. We will recheck base met and CBC in the a.m.
[2018-01-15] MEDS ORDERED: Sodium Bicarbonate 2.5 MEQ/5 ML VIAL ONE (11:35)
[2018-01-15] MEDS ORDERED: Fentanyl 100 MCG/2 ML VIAL ONE (11:35)
--- NOTE | 2018-01-15 11:35 | PDOC.GSPN ---
Surgery Progress Note: Subj - Subjective Patient reports: bowel movement, tolerating a regular diet, voiding w/o difficulty Narrative: Pt reports nausea and vomiting last night that began after drinking prep for CT. Pt becomes hypoxic with walking. Continues to require O2. Surgery Progress Note: Obj - Vital signs Vital signs: Vital Signs - Most Recent Temp Pulse Resp BP Pulse Ox 98.7 F 101 H 18 130/75 84 L 01/15/18 07:20 01/15/18 07:20 01/15/18 07:20 01/15/18 07:20 01/15/18 09:55 - Physical Exam General: well developed, well nourished Cardiovascular: regular rate and rhythm Respiratory: clear to auscultation, normal respiratory effort Abdomen: soft, nondistended, positive bowel sounds, tender Musculoskeletal: normal gait, normal posture Wound: healing well Surgery Progress Note: Results - Labs Result Diagrams: 01/15/18 05:43 01/15/18 05:43 Lab results: Laboratory Results - last 24 hr 01/15/18 01/15/18 01/15/18 05:43 05:43 08:59 WBC 13.6 H RBC 3.74 L Hgb 12.4 Hct 36.3 MCV 97.1 MCH 33.0 H MCHC 34.0 RDW 12.2 Plt Count 321 MPV 6.2 L Neutrophils % (Manual) 56 Band Neuts % (Manual) 18 H Lymphocytes % (Manual) 15 L Reactive Lymphs % 2 Monocytes % (Manual) 7 Metamyelocytes % (Man) 2 H Neutrophils # Not Reportable Lymphocytes # Not Reportable RBC Morph Comment Normal PT 14.3 INR 1.1 APTT 38.5 H Sodium 139 Potassium 3.5 Chloride 97 L Carbon Dioxide 23 Anion Gap 23 H BUN 38 H Creatinine 3.26 H Estimated GFR (MDRD) 14 Glucose 78 L Calcium 8.7 Phosphorus 5.5 H Magnesium 1.9 - Radiology Interpretation CT scan - abdomen Status: report reviewed by me Additional comments: Large volume fluid in the pelvis, dilated loops of small bowel, intraperitoneal gas. Surgery Progress Note: A/P - Problem (1) S/P appendectomy Current Visit: Yes Code(s): Z90.49 - ACQUIRED ABSENCE OF OTHER SPECIFIED PARTS OF DIGESTIVE TRACT Status: Acute (2) Appendiceal abscess Current Visit: Yes Code(s): K35.3 - ACUTE APPENDICITIS WITH LOCALIZED PERITONITIS Status: Acute (3) SEE (acute kidney injury) Current Visit: Yes Code(s): N17.9 - ACUTE KIDNEY FAILURE, UNSPECIFIED Status : Acute (4) Hypokalemia Current Visit: Yes Code(s): E87.6 - HYPOKALEMIA Status: Acute - Plan Plan: POD #8 s/p laparoscopic appendectomy complicated by periappendiceal abscess s/p laparoscopic drainage - pain well controlled - PT/OT, patient active and motivated - requiring supplemental O2 - currently NPO for radiology procedure - plan for radiology to perform drainage today - on Zosyn (started 01/09) - Cardiology consulted today for evaluation of diastolic dysfunction, continued hypoxia SEE, improving - Cr 3.26 today - will continue to monitor - appreciate recommendations from Dr. Linares Acute Hypokalemia, resolved - 3.5 today - will monitor Disposition: Pending cardiology consult. Patient was examined, evaluated, and discussed with Dr. Frias. Dr. Frias performed a history and physical examination of the patient and discussed his management with the resident. Dr. Frias reviewed the resident's note and agree with the documented findings and plan of care except for the following.
[2018-01-15] MEDS ORDERED: Midazolam HCl 2 mg/2 ml Vial ONE (11:49)
--- NOTE | 2018-01-15 14:52 | CT ---
CT GUIDED FLUID DRAINAGE OF THE PELVIS: CLINICAL HISTORY: Recent appendicitis with associated pelvic fluid/intraabdominal/pelvic inflammation. PROCEDURE: Informed consent was obtained from the patient. The patient was escorted to the procedural suite and placed into a prone position. An approachable fluid collection at the left aspect of the pelvic cul -de-sac was located with CT welt sewer imaging. Using a grid and CT fluoroscopic imaging, the accessible fluid pocket was localized for drainage purposes. Utilizing standard sterile prepping and draping, t he soft tissues of the low back and left gluteal region were sterilized and subsequently anesthetized . The patient was administered conscious sedation by the radiology nurse, Ayanna Carvajal, and monito red accordingly, in stable condition, throughout the duration of the exam. Utilizing a 20 gauge need le, uneventful access into the fluid collection of interest at the posterior left pelvis was performe d and documented with the imaging, which was stored for documentation. A small volume of thick, exsa nguinous fluid was aspirated from the fluid collection of interest. The needle was removed. The spe cimen was placed into a sterile syringe and sent to the laboratory for further analysis. Post proced ural image did reveal post procedural air and diminished volume of the fluid collection of interest. No procedural complications. IMPRESSION: Technically successful fluid drainage of the posterior left pelvis. The specimen was sent to the lab oratory for analysis. Results are pending. POS: [facility]
[2018-01-15] MEDS: traMADol HCl 50 MG TAB PO PRN (17:43)
[2018-01-15] MEDS: Simvastatin 40 MG TAB PO SCH (19:58)
[2018-01-15] MEDS: Famotidine 20 MG TAB PO SCH (19:58)
[2018-01-15] MEDS: Escitalopram Oxalate 20 mg Tablet PO SCH (19:59)
--- NOTE | 2018-01-16 02:42 | CON ---
DATE OF CONSULTATION: 01/15/2018 REASON FOR CONSULTATION: Diastolic heart failure. HISTORY OF PRESENT ILLNESS: Ms. Randall is a pleasant 72-year-old white female who comes to the [facility] for appendicitis. She had a laparoscopic appendectomy, which was eventually complicated by the p eriappendiceal abscess which required laparoscopic drainage. She later on eventually developed perin eal abscess as well that was actually drained earlier today by Radiology. She also developed acute k idney injury with a baseline creatinine being pretty much normal and it is now in the 3 range. Thoug ht to be related to acute tubular necrosis, followed by Dr. Linares. She had an echocardiogram that reve aled normal LV function with grade I diastolic dysfunction with minimal MR and TR. Cardiology is jorge luis kiran consulted to see what the extent of cardiac involvement there is in her clinical picture. Ms. Ladonna ruggiero denies any chest pain, tightness, pressure. She is a little bit more short of breath than normal . She feels she has got a lot of fluid in her belly and she also had a lot of fluid in her legs, but this has been better since she has been diuresed. She feels she has been peeing a lot more today th an the last few days. PAST MEDICAL HISTORY: 1. Anxiety and depression. 2. Hypothyroidism. 3. Hyperlipidemia. PAST SURGICAL HISTORY: 1. Hysterectomy. 2. Tonsillectomy. 3. Laparoscopic appendectomy as above. 4. Laparoscopic removal of periappendiceal abscess. 5. CT-guided retroperitoneal abscess drainage earlier today. SOCIAL HISTORY: No alcohol, tobacco, or drugs. FAMILY HISTORY: Noncontributory. OUTPATIENT MEDICATIONS: 1. Simbrinza ophthalmic solution. 2. Xanax. 3. Premarin. 4. Escitalopram. 5. Seroquel. 6. Potassium chloride. 7. Magnesium oxide. 8. Synthroid 125 mcg a day. 9. Xalatan ophthalmic drops. 10. Zocor 40 mg at bedtime. ALLERGIES: No known drug allergies. REVIEW OF SYSTEMS: 12-point review of systems was done and was negative unless stated in the history of present illness. PHYSICAL EXAMINATION: VITAL SIGNS: Temperature 98.3, pulse 100, respiratory rate 20, satting 91% on 2 liters, blood pressu re 119/59. GENERAL: Awake, alert, oriented x3, in no distress. HEENT: Normocephalic, atraumatic. NECK: Supple. LUNGS: She has got crackles in the left base, none on the right base, otherwise clear. CARDIOVASCULAR: S1, S2. No S3, S4. No murmurs, no rubs. ABDOMEN: Soft. There is diffuse tenderness to palpation with positive ascitic wave. EXTREMITIES: Trace bilateral lower extremity edema. SKIN: Warm and dry. LABORATORY DATA: Laboratory work was reviewed. CBC with a white count of 13. This is up from 9.2 y esterday, hemoglobin of 12, hematocrit of 36, platelet count 321. Coags were reviewed. ABG and chem istries were reviewed. Sodium of 139, which is better. She has been hypernatremic in the last few d ays. Creatinine was 3.5, then 3.3, 3.4, 3.3, and now 3.2. Phosphorus of 5.5, glucose of 78. BNP wa s 783, this was just on 01/11/2018. UA, moderate blood, 4-6 white cells, 7-[address] l[address] of the abdomen was reviewed, done yesterday, which showed large amount of fluid in the abdomen. L arge volume fluid in the pelvis and intraperitoneal gas. Dilated loops of small bowel. ASSESSMENT AND PLAN: 1. Chronic diastolic heart failure: I do not think her current clinical picture is related to diast olic heart failure. It is normal for a 70-year-old to have a grade 1 diastolic heart failure as well as mild MR and mild TR, which is what her echo looks like. Most likely the source of her shortness of breath is related to the amount of fluid in her abdomen, which is pushing against her lungs not le tting her take deep breaths. This also compounded with all the surgeries that she has been having an d the pain medications. I do not think there is any acute cardiac intervention that needs to be done . I agree with continued IV Lasix use. More than likely, her acute kidney injury and her acute tubu lar necrosis will hopefully eventually go into the polyuric phase and she will start diuresing even m uch better. She already tells me that she has been peeing a lot more today than she had in the past few days, and her creatinine is starting to come down. 2. Acute kidney injury: Follow up with Dr. Linares; acute tubular necrosis most likely per his notes. I agree with his assessment. Hopefully, she will start diuresing more as above. Thank you for letting us participate in the care of your patient. We will follow.
[2018-01-16] MEDS: Piperacillin/Tazobactam 2.25 GM in Sodium Chloride 0.9% 100 ML IVPB SCH (03:47)
[2018-01-16 05:01] LABS: Anion Gap 22 mmol/L (10-20); BUN (Urea Nitrogen) 32 mg/dL (9.8-20.1); Calc. Creatinine Clearance 15 mL/min (70-130); Calcium 8.5 mg/dL (7.8-10.44); Carbon Dioxide 20 mmol/L (23-31); Chloride 100 mmol/L (98-107); Estimated GFR-MDRD 17; Glucose 72 mg/dL (83-110); Potassium 3.5 mmol/L (3.5-5.1); Sodium 138 mmol/L (136-145)
[2018-01-16 05:18] LABS: Band 16 % (5-11); Hemoglobin 10.7 g/dL (12.0-16.0); Lymphocytes 12 % (21-51); MDiff Complete? YES; Mean Corpuscular HGB CONC 35.4 g/dL (32.0-36.0); Mean Corpuscular Hemoglobin 34.3 pg (27.0-31.0); Mean Corpuscular Volume 96.9 fL (78.0-98.0); Mean Platelet Volume 5.8 fL (7.4-10.4); Metamyelocyte 2 % (0-0); Monocytes 5 % (0-10); Myelocyte 3 % (0-0); Neutrophil 62 % (42-75); Platelet Count 291 thou/uL (130-400); RBC Distribution Width 12.2 % (11.5-14.5); Red Blood Cell (RBC) Count 3.11 mill/uL (4.20-5.40); White Blood Cell (WBC) Count 16.6 thou/uL (4.8-10.8)
[2018-01-16] MEDS: Acetaminophen 500 MG TAB PO SCH ×3 (05:55→17:13)
[2018-01-16] MEDS: Levothyroxine Sodium 125 MCG TAB PO SCH (05:55)
[2018-01-16] MEDS: Heparin 5,000 UNITS/ML VIAL SC SCH ×3 (09:15→20:02)
[2018-01-16] MEDS: Saccharomyces boulardii 250 MG CAP PO SCH (09:15)
[2018-01-16] MEDS: metroNIDAZOLE 500 MG TAB PO SCH ×3 (09:15→20:01)
[2018-01-16] MEDS: Latanoprost 0.005% Ophth Soln 2.5 ml Bottle EA EYE SCH (09:16)
[2018-01-16] MEDS: traMADol HCl 50 MG TAB PO PRN (09:16)
[2018-01-16] MEDS: Brinzolamide 1% Ophth Soln 10 ml Bottle EA EYE SCH ×2 (09:16→20:03)
[2018-01-16] MEDS ORDERED: Furosemide 40 MG/4 ML VIAL SLOW IVP SCH (09:45)
--- NOTE | 2018-01-16 09:54 | PRG ---
DATE OF SERVICE: 01/16/2018 SUBJECTIVE: Ms. Randall is a 72-year-old white female who was seen by the Renal Service for acute kid josue injury. Initially this was initially felt to be a hemodynamically mediated renal dysfunction. H owever, in spite of volume repletion she remained unimproved. Cardiac echo showed diastolic dysfunct ion. The possibility of a superimposed acute tubular necrosis remains with this patient. Yesterday, the patient underwent fluid drainage, percutaneously - Radiology on the posterior left pelvis. She is doing better this morning. No complaints of chest pain or any worsening shortness of breath. OBJECTIVE: VITAL SIGNS: Blood pressure 116/68 with a heart rate of 99, respiratory rate 16, temperature 98.2, p ulse ox is actually from 84-93%. GENERAL: She is noted to be awake, sitting comfortable, not in overt distress SKIN: Adequate turgor. HEENT: She has pinkish conjunctivae, anicteric sclerae. NECK: No neck mass, no carotid bruits, no JVD. CHEST: No deformities. LUNGS: Decreased breath sounds. HEART: Normal sinus rhythm. No murmur, no gallops, no rubs. ABDOMEN: Globular, soft, nontender, no masses. EXTREMITIES: No edema. MEDICATIONS: 01/16/2018 - Reviewed. LABORATORY: 01/16/2018 - White count 16.6, hemoglobin 10.7, sodium 138, potassium 3.5, chloride 100, carbon dioxide 20, BUN 32, creatinine 2.76, glucose 72, calcium 8.5. ASSESSMENT AND PLAN: 1. Diastolic dysfunction. We will give Lasix 40 mg IV q. 1 dose today. 2. Acute kidney injury is most likely a superimposed acute tubular necrosis. Stabilizing renal func tion. Creatinine improved from 3.26 to 2.76 today. Continue supportive care. There is no indicatio n for any dialytic intervention. 3. Status post laparoscopic appendectomy, surgery is following. Status post percutaneous drainage o f intrapelvic fluid. Continue supportive care.
--- NOTE | 2018-01-16 11:18 | PDOC.CTH ---
Cardiology Progress Note - Subjective She is doing better. Continues to urinate a lot more. - Objective Vital Signs Temp Pulse Resp BP Pulse Ox 01/16/18 08:00 98.2 F 99 16 116/68 84 L 01/16/18 06:30 99 20 93 L 01/16/18 04:00 98.4 F 100 16 101/55 L 90 L 01/16/18 00:00 98.2 F 88 16 100/55 L 92 L Admit Weight 113 lb 1 oz Weight 113 lb 1 oz 01/15/18 01/16/18 01/17/18 06:59 06:59 06:59 Intake Total 530 860 Output Total 1350 1325 Balance -820 -465 - Physical Examination General/Neuro: alert & oriented x3, NAD Neck: no JVD present Lungs: unlabored respirations Heart: RRR Abdomen: other: (Mild diffuse tenderness, no rebound or guarding. ) Extremities: + edema B (1+) - Labs Result Diagrams: 01/16/18 04:24 01/16/18 04:24 - Assessment/Plan 1. Acute appendicitis. 2. Intra abdominal abscess 3. SEE, likely form ATN 4. Edema 5. SOB 6. Chronic diastolic heart failure. PLAN: - Continue diuresis. - CV stable. No new recs. - Will sign off. Please call with any questions. - Follow up in 1 month after discharge.
[2018-01-16] MEDS ORDERED: Ciprofloxacin 500 MG TAB PO SCH (11:30)
--- NOTE | 2018-01-16 11:39 | PRG ---
DATE OF SERVICE: 01/16/2018 HISTORY: This is a 72-year-old woman, who is postoperative day #9, status post laparoscopic appendec tiffani and drainage of periappendiceal abscess. The patient underwent a percutaneous aspiration of per itoneal fluid yesterday. Microbiology report is pending. SUBJECTIVE: This morning, the patient reports breathing better. She denied any nausea or vomiting o [place] the last 24 hours. She is tolerating a diet and having bowel movements. She voided 625 mL of ur ine, previous 24 hours. OBJECTIVE: VITAL SIGNS: Includes blood pressure 116/68, pulse is 99, respiratory rate is 20. Maximum temperatu re in the last 24 hours is 98.4 degrees Fahrenheit, oxygen saturation 93% on 2 liters by nasal cannul a oxygen. HEENT EXAMINATION: Reveals normocephalic and atraumatic. HEART: Reveals regular rate and rhythm, no murmurs or gallops auscultated. LUNGS: Reveals scattered rhonchi. Breathing is, otherwise, regular and unlabored. ABDOMEN: Soft with moderate tenderness to palpation. She has no gross rebound tenderness present. EXTREMITIES: Reveal 2+ radial and pedal pulses bilaterally. She has trace bilateral ankle edema pre sent. NEUROLOGICAL EXAMINATION: Reveals no focal deficits present. LABORATORY FINDINGS: Today include CBC with 16,600 white blood cells, hemoglobin and hematocrit 10.7 and 30.1 respectively. Platelet count is 291,000. Differential counts as follows, 62% segmented ne utrophils, 16 bands, 12 lymphocytes, and 5 monocytes. Metabolic profile: Sodium 138, potassium is 3 .5, chloride is 100, bicarbonate 20, BUN is 32, creatinine is improved at 2.76, glucose is 72. IMPRESSION: 1. Postoperative day #9, status post laparoscopic appendectomy and drainage of periappendiceal absce ss. 2. Resolving acute kidney injury. 3. Resolving adynamic ileus. 4. Improving acute postsurgical pulmonary insufficiency. PLAN: 1. Continue with gentle diuresis. 2. Increase activity as tolerated. 3. We will repeat laboratory studies in the morning to monitor the patient's renal function as well as the leukocytosis. Above findings and plan discussed with the patient, who indicates understanding of information given. I have answered her questions.
[2018-01-16] MEDS: Amoxicillin/Potassium Clav 500 MG TAB PO SCH (20:02)
[2018-01-16] MEDS: Escitalopram Oxalate 20 mg Tablet PO SCH (20:02)
[2018-01-16] MEDS: Simvastatin 40 MG TAB PO SCH (20:02)
[2018-01-16] MEDS: Famotidine 20 MG TAB PO SCH (20:02)
[2018-01-17] MEDS: Acetaminophen 500 MG TAB PO SCH ×4 (00:01→18:09)
[2018-01-17 05:34] LABS: #Eosinphils 0.1 thou/uL (0.0-0.7); #Lymphocytes 0.9 thou/uL (1.20-3.40); #Monocytes 1.1 thou/uL (0.11-0.59); #Neutrophils 16.3 thou/uL (1.40-6.50); %Basophils 0.1 % (0.0-1.0); %Eosinophils 0.5 % (0.0-10.0); %Monocytes 5.9 % (0.0-10.0); %Neutrophils 88.5 % (42.0-75.0); Hemoglobin 11.1 g/dL (12.0-16.0); Mean Corpuscular HGB CONC 34.7 g/dL (32.0-36.0); Mean Corpuscular Hemoglobin 33.5 pg (27.0-31.0); Mean Corpuscular Volume 96.5 fL (78.0-98.0); Mean Platelet Volume 5.9 fL (7.4-10.4); Platelet Count 323 thou/uL (130-400); RBC Distribution Width 12.3 % (11.5-14.5); Red Blood Cell (RBC) Count 3.31 mill/uL (4.20-5.40); White Blood Cell (WBC) Count 18.5 thou/uL (4.8-10.8)
[2018-01-17] MEDS: Levothyroxine Sodium 125 MCG TAB PO SCH (05:45)
[2018-01-17 06:00] LABS: Anion Gap 18 mmol/L (10-20); BUN (Urea Nitrogen) 27 mg/dL (9.8-20.1); Calc. Creatinine Clearance 18 mL/min (70-130); Calcium 8.7 mg/dL (7.8-10.44); Carbon Dioxide 23 mmol/L (23-31); Chloride 98 mmol/L (98-107); Estimated GFR-MDRD 20; Glucose 104 mg/dL (83-110); Magnesium 1.1 mg/dL (1.6-2.6); Phosphorus 3.9 mg/dL (2.3-4.7); Potassium 3.2 mmol/L (3.5-5.1); Sodium 136 mmol/L (136-145)
[2018-01-17] MEDS ORDERED: Ciprofloxacin 500 MG TAB PO SCH (06:00)
[2018-01-17] MEDS: Heparin 5,000 UNITS/ML VIAL SC SCH ×3 (08:03→23:39)
[2018-01-17] MEDS: Saccharomyces boulardii 250 MG CAP PO SCH (08:03)
[2018-01-17] MEDS: Amoxicillin/Potassium Clav 500 MG TAB PO SCH (08:03)
[2018-01-17] MEDS: metroNIDAZOLE 500 MG TAB PO SCH ×2 (08:03→14:55)
[2018-01-17] MEDS: Latanoprost 0.005% Ophth Soln 2.5 ml Bottle EA EYE SCH (08:04)
[2018-01-17] MEDS: Brinzolamide 1% Ophth Soln 10 ml Bottle EA EYE SCH ×2 (08:04→23:39)
[2018-01-17] MEDS ORDERED: Magnesium Sulfate 3 GM in Sodium Chloride 0.9% 100 ML IVPB SCH (09:00)
[2018-01-17] MEDS ORDERED: Potassium Chloride 20 MEQ TAB PO SCH (09:00)
[2018-01-17] MEDS ORDERED: Furosemide 40 MG/4 ML VIAL SLOW IVP SCH (11:00)
--- NOTE | 2018-01-17 11:00 | PRG ---
DATE OF SERVICE: 01/17/2018 RENAL MEDICINE SUBJECTIVE: Ms. Randall is a 72-year-old white female who came in with an acute abdomen - diagnosed w ith periappendiceal abscess, status post laparoscopic appendectomy. Also underwent percutaneous aspi ration of peritoneal fluid 2 days before. She is still complaining of some abdominal fullness. We a re following this patient for her acute kidney injury. My feeling is that she may have a superimpose d acute tubular necrosis. She was also found to be in diastolic dysfunction. Cardiology following. The patient continues to receive p.r.n. IV Lasix. No other complaints today, no shortness of breath. Tolerating p.r.n. Lasix. PHYSICAL EXAMINATION: VITAL SIGNS: Blood pressure is 106/62, heart rate 97, respiratory rate 19, temperature 98.6, pulse o x 97%. GENERAL: Noted to be awake, supine, comfortable, not in overt distress. SKIN: Adequate turgor. HEENT: She has pinkish conjunctivae, anicteric sclerae. NECK: No neck mass, no carotid bruits, no JVD. CHEST: No deformities. LUNGS: Clear breath sounds. HEART: Normal sinus rhythm. No murmurs, no gallops, no rubs. ABDOMEN: Globular, soft, nontender. No masses. EXTREMITIES: No edema, no deformities. MEDICATIONS: Medications of 01/17/2018 was reviewed. LABORATORY DATA: Laboratories of 01/17/2018; white count 18.5, hemoglobin 11.1. Sodium 136, potassi um 3.2, chloride 98, carbon dioxide 23, BUN 27, creatinine 2.34, glucose 104, calcium 8.7, phosphorus 3.9 and magnesium 1.1. ASSESSMENT AND PLAN: 1. Acute kidney injury - superimposed acute tubular necrosis, slowly improving. Tolerating current diuretic regimen. 2. Diastolic dysfunction. Patient is on p.r.n. Lasix. 3. Mild hypokalemia, p.r.n. potassium replacement. 4. Mild hypomagnesemia. Magnesium sulfate 2 grams IV over 2 hours. 5. Elevated white count - currently on antibiotics. Surgery is following. Consider doing a blood C &S.
--- NOTE | 2018-01-17 14:52 | PRG ---
DATE OF SERVICE: 01/17/2018 SUBJECTIVE: This is a 72-year-old female, hospital day 10, postop day #9, status post laparoscopic a ppendectomy and drainage of periappendiceal abscess. She has had a prolonged hospital course seconda ry to acute respiratory failure, diastolic heart failure, and acute kidney injury. She is status pos t appendiceal abscess drainage. There were no acute overnight events. The patient states, this morn ing, that her abdominal bloating is worsening and she is having a reduced appetite. She states that she did pass flatus this a.m. OBJECTIVE: VITAL SIGNS: Temperature 98.1, pulse 98, respirations 18, O2 sat 92%-97% on 3 liters nasal cannula, blood pressure 106/62. GENERAL: A well-developed female, in no acute distress, sitting in a chair, out of bed. PULMONARY: Normal work of breathing. Symmetric rise. CARDIOVASCULAR: Regular rate and rhythm. GASTROINTESTINAL: Abdomen is rotund, mildly firm with mild generalized tenderness to palpation. Lap aroscopic sites are clean and dry. She is tympanic to percussion. EXTREMITIES: Moves all extremities x4. NEUROLOGIC: No focal deficit is noted. LABORATORY FINDINGS: WBC 18.5, hemoglobin 11.1, hematocrit 32, platelet count 323. Sodium 136, pota ssium 3.2, chloride 98, carbon dioxide 23, BUN 27, creatinine 2.34, glucose 104, phosphorus 3.9, magn esium 1.1. ASSESSMENT: 1. Postoperative day 10, status post laparoscopic appendectomy and drainage of periappendiceal absce ss. 2. Resolving acute kidney injury. 3. Acute hypoxemic respiratory failure. 4. Diastolic heart failure. 5. Ileus. 6. Hypokalemia. 7. Hypomagnesemia. PLAN: Continue with diuresis per Nephrology. Replete electrolytes. Wean O2 as able. Continue to f ollow a.m. labs. Rule out other infectious sources of elevated WBCS. Add bowel regimen given patien t's lack of bowel movement in the last 48 hours. Continue antibiotics as ordered. Plan of care disc ussed with the patient and family at bedside. All questions were answered at the time of this dictat ion. The patient was discussed with attending.
[2018-01-17] MEDS: Ondansetron HCl/PF 4 MG/2 ML Vial IVP PRN (14:54)
[2018-01-17] MEDS ORDERED: Glycerin Adult Supp. (12 ct jar) PR SCH (15:15)
[2018-01-17] MEDS: traMADol HCl 50 MG TAB PO PRN (15:35)
[2018-01-17 15:49] LABS: Bilirubin Negative (Negative); Blood, Urine Negative (Negative); Clarity CLEAR (Clear); Glucose, Urine (Dipstick) Negative (Negative); Leukocyte Negative (Negative); Nitrite Negative (Negative); Protein, Urine (Dipstick) Trace mg/dL (Neg-Trace); Specific Gravity, Urine 1.009 (1.002-1.036); Urobilinogen 0.2 mg/dL (0.2-1.0)
--- NOTE | 2018-01-17 16:36 | RAD ---
RADIOGRAPH ABDOMEN 1 VIEW: 01/17/18 at 4:06 p.m. HISTORY: 72-year-old female with abdominal pain and distention. FINDINGS: There are multiple dilated air filled small bowel loops in the upper and mid abdomen. There is little or no gas in the colon. IMPRESSION: Abnormal bowel gas pattern, suspicious for small bowel obstruction. Ileus is less likely, but also po ssible. POS: [facility]
[2018-01-17] MEDS ORDERED: Metoclopramide HCl 10 MG/2 ML VIAL IVP SCH (18:45)
[2018-01-17] MEDS ORDERED: Sodium Chloride 0.9% 1,000 ML IV SCH (20:00)
[2018-01-17] MEDS: Sodium Chloride 0.9% 1,000 ML IV SCH (20:21)
[2018-01-17] MEDS: Escitalopram Oxalate 20 mg Tablet PO SCH (20:22)
[2018-01-17] MEDS: Famotidine 20 MG TAB PO SCH (20:22)
[2018-01-17] MEDS: Simvastatin 40 MG TAB PO SCH (20:22)
[2018-01-17] MEDS: Senokot S 8.6-50 MG TAB PO SCH (20:22)
--- NOTE | 2018-01-17 20:32 | RAD ---
FRONTAL VIEW CHEST: 01/17/18 INDICATION: Nasogastric tube placement. FINDINGS: There is a nasogastric tube traversing to the left upper quadrant. There are air filled loops of the abdomen partially visualized. Interstitial prominence of each lung present. IMPRESSION: Enteric catheter traverses the to the left upper quadrant. Prominent, air filled bowel which may be on the basis of ileus versus obstruction. POS: [facility]
[2018-01-17] MEDS: Acetaminophen 1,000 MG in Premix Bag 1 BAG IVPB SCH (23:39)
[2018-01-18] MEDS: Acetaminophen 1,000 MG in Premix Bag 1 BAG IVPB SCH ×3 (05:06→18:34)
[2018-01-18 05:51] LABS: Anion Gap 18 mmol/L (10-20); BUN (Urea Nitrogen) 24 mg/dL (9.8-20.1); Calc. Creatinine Clearance 20 mL/min (70-130); Calcium 8.7 mg/dL (7.8-10.44); Carbon Dioxide 24 mmol/L (23-31); Chloride 101 mmol/L (98-107); Estimated GFR-MDRD 23; Glucose 80 mg/dL (83-110); Magnesium 1.6 mg/dL (1.6-2.6); Phosphorus 4.4 mg/dL (2.3-4.7); Potassium 3.5 mmol/L (3.5-5.1); Sodium 139 mmol/L (136-145)
[2018-01-18 06:42] LABS: Band 10 % (5-11); Hemoglobin 11.7 g/dL (12.0-16.0); Lymphocytes 11 % (21-51); MDiff Complete? YES; Mean Corpuscular HGB CONC 33.8 g/dL (32.0-36.0); Mean Corpuscular Hemoglobin 33.3 pg (27.0-31.0); Mean Corpuscular Volume 98.4 fL (78.0-98.0); Monocytes 4 % (0-10); Neutrophil 75 % (42-75); Platelet Count 434 thou/uL (130-400); RBC Distribution Width 12.5 % (11.5-14.5); Red Blood Cell (RBC) Count 3.51 mill/uL (4.20-5.40); White Blood Cell (WBC) Count 21.7 thou/uL (4.8-10.8)
[2018-01-18] MEDS ORDERED: [UNRECOGNIZED DRUG - OTHER] IVPB SCH (08:00)
[2018-01-18] MEDS ORDERED: ADMIXTURE FEE IVPB SCH (08:00)
[2018-01-18] MEDS ORDERED: POTASSIUM CHLORIDE IVPB SCH (08:00)
[2018-01-18] MEDS ORDERED: MAGNESIUM SULFATE IVPB SCH (08:00)
[2018-01-18] MEDS ORDERED: CEFAZOLIN/Water 2 GM/20 ML SYRINGE ONE ×2 (09:18→09:39)
[2018-01-18] MEDS ORDERED: Fentanyl 100 MCG/2 ML VIAL ONE ×3 (09:20→13:17)
[2018-01-18] MEDS ORDERED: HYDROmorphone 0.5 MG/0.5 ML SYRINGE ONE (09:20)
--- NOTE | 2018-01-18 10:09 | PRG ---
DATE OF SERVICE: 01/18/2018. SUBJECTIVE: Ms. Randall is a 72-year-old woman who is postop day #11 from laparoscopic appendectomy a nd drainage of periappendiceal abscess. The patient has had a slow postoperative recovery. This mor [place], she is awake and alert. She did have a large volume bilious emesis yesterday. Workup included an abdominal x-ray, which was suggestive of small-bowel obstruction. The patient was placed on gareth l rest with nasogastric tube decompression. Overnight, the NG tube has returned 600 mL of bilious e ffluent. The patient is otherwise hemodynamically stable and afebrile. Urinary output is adequate. OBJECTIVE: VITAL SIGNS: This morning includes blood pressure 129/69, pulse 104, respiratory rate is 24, tempera ture is 98.1 degrees Fahrenheit, oxygen saturation is 92% on 3 liters by nasal cannula oxygen. HEENT: Reveals pupils equal, round, reactive to light and accommodation. NECK: She has no jugular venous distention noted. HEART: Reveals regular rate with sinus tachycardia. CHEST: Clear to auscultation bilaterally. Breathing regular and unlabored. ABDOMEN: Soft, moderately distended and diffusely tender to palpation. She does have a gross reboun d tenderness present this morning. NEUROLOGIC: Reveals no focal deficits present. PERTINENT LABORATORY DATA: Today includes a CBC with rising white blood cell count now at 21,700. H emoglobin and hematocrit are 11.7 and 34.6 respectively. Platelet count 434,000. Differential count s as follows, 75% segmented neutrophils, 10 bands, 11 lymphocytes, and 4 monocytes. Metabolic profil e: Sodium 139, potassium 3.5, chloride is 101, bicarbonate 24, BUN is 24, creatinine is 2.11, glucos e is 80, magnesium 1.6, phosphorus 4.4. IMPRESSION: 1. Postoperative day #11 status post laparoscopic appendectomy and drainage of periappendiceal absce ss. 2. Acute small-bowel obstruction. 3. Acute peritonitis highly suspicious for intra-abdominal infection. I suspect abscess or at least the infected abdominal ascites. Due to this patient's renal function, a CT scan of the abdomen and pelvis with IV contrast is not feasible. I have discussed the above findings with the patient and he r . I have provided her with an option to continue with the conservative management, I think so far has failed. Alternatively, the patient needs to be brought to the operating room for explorat ory laparotomy and abdominal washout. The patient indicates understanding of information given. I farida arnett answered their questions. The patient has granted consent for this surgical intervention.
[2018-01-18] MEDS ORDERED: Ertapenem 1 GM in Sodium Chloride 0.9% 100 ML IVPB SCH (11:00)
[2018-01-18] MEDS ORDERED: Promethazine HCl 25 MG/ML VIAL IM PRN (11:22)
[2018-01-18] MEDS ORDERED: Ondansetron HCl/PF 4 MG/2 ML Vial IVP PRN (11:22)
[2018-01-18] MEDS ORDERED: Promethazine HCl 25 MG/ML VIAL SLOW IVP PRN (11:22)
[2018-01-18] MEDS ORDERED: Meperidine HCl/PF 25 MG/ML VIAL SLOW IVP PRN (11:22)
[2018-01-18] MEDS ORDERED: MEROPENEM 1 GM/50 ML 1 GM in Premix Bag 1 BAG IVPB SCH ×2 (12:30→22:00)
--- NOTE | 2018-01-18 12:34 | OP ---
DATE OF OPERATION: 01/18/2018 PREOPERATIVE DIAGNOSES: 1. Pelvic abscess. 2. Acute small-bowel obstruction. 3. Postoperative day #11 status post laparoscopic appendectomy and drainage of periappendiceal absce ss. POSTOPERATIVE DIAGNOSES: 1. Pelvic abscess. 2. Acute small-bowel obstruction. 3. Postoperative day #11 status post laparoscopic appendectomy and drainage of periappendiceal absce ss. 4. Adhesions. INDICATIONS FOR OPERATION: A 72-year-old woman postop day #11 status post laparoscopic appendectomy and drainage of periappendiceal abscess. The patient has had a slow postoperative course. Last 3 da ys, she has had rising white blood cell count though no fevers. Today, she has worsening abdominal p ain associated with a large volume bilious emesis yesterday. Abdominal x-ray was suggestive of acute small-bowel obstruction. The patient was placed on bowel rest with nasogastric tube decompression f or 24 hours. She continues with abdominal pain yet with more increasing white blood cell count. Cre atinine is over 2 which prohibit the use of IV contrast for CT scanning of the abdomen and pelvis. A fter conversation with the patient and family, we resolved to bring her back to the operating room to day for exploration. Findings are consistent with moderate amount of purulent pus in the previous re trocecal appendiceal position. There was also some cloudy pelvic ascitic fluid which evacuated. The re were multiple small bowel adhesions in the pelvis involving small bowel loops and the anterior abd ominal wall. A 5 cm Meckel's diverticulum is noted approximately 2 feet from the ileocecal junction. The Meckel's has a wide base. Therefore, we elected not to resect it. OPERATIONS PERFORMED: 1. Exploratory laparotomy. 2. Lysis of adhesion. 3. Drainage of pelvic abscess. SURGEON: Shorty Frias D.O. ANESTHESIA: General endotracheal. ESTIMATED BLOOD LOSS: 25 mL. FLUIDS GIVEN: 1000 mL crystalloids. SPONGE AND INSTRUMENT COUNT: Certified as correct x2. COMPLICATIONS: None apparent at the time of operation. DESCRIPTION OF PROCEDURE: Informed consent obtained from the patient who was brought to the operatin g room and placed in supine position. A Brooks catheter was inserted and placed bedside drain. Previ ous nasogastric tube was placed to wall suction. The abdomen was sterilely prepped and draped in usu al fashion. A midline incision is made using an 11 scalpel. Incision was carried through subcutaneo us tissues maintaining hemostasis using thermocautery. Fascia was incised in midline exposing the pe ritoneum beneath which was grasped x2 with hemostats. The peritoneal cavity was sharply entered usin g Metzenbaum scissors. Incision is extended superiorly and inferiorly. Moderate amount of clear asc itic fluid was readily evacuated. Small bowel was then run from the ligament of Treitz down to termi nal ileum. There was a transition zone in the deep pelvis involving multiple small bowel loops which are attached by adhesions. Adhesions were meticulously taken down using Metzenbaum scissors. Care was taken to avoid serosal tear. Moderate amount of cloudy pelvic ascitic fluid was evaluated using suction. We will continue run the bowel to the terminal ileum. The cecum was welded to the right la teral gutter. Once this was mobilized medially, moderate amount of purulent pus was evacuated readil y in the previous retrocecal appendiceal position. Cultures were taken. That cavity was copiously i rrigated clear with saline. The remainder of the large intestine was inspected from the cecum throug h the ascending, transverse, descending, sigmoid colon and rectum, no other pathology noted. Dilated gallbladder is noted in the usual anatomic position devoid of stones. Previous nasogastric tube was palpated within the gastric lumen. Finding no other pathology, exploration was terminated. The abd ominal cavity was copiously irrigated, cleared with saline solution. Small bowel was then returned t o normal anatomic position. Omentum was drawn over the remainder of the viscera. All sponges and in struments were removed and accounted for. Fascia was closed in the midline using a running stitch of #1 single stranded PDS. Subcutaneous tissue was then pulse lavaged with 3 liters of sterile saline after an exchange for a new set of sterile gloves. Good hemostasis was achieved using cautery. Subc utaneous tissues approximated using interrupted sutures of 3-0 Vicryl. Skin incision was closed usin g a running stitch of 3-0 Monocryl suture in subcuticular fashion. Dermabond was applied. The patie nt tolerated this operation without any apparent complication and was returned to the recovery room i n satisfactory condition.
[2018-01-18] MEDS: Levothyroxine Sodium 125 MCG TAB PO SCH (13:07)
[2018-01-18] MEDS: Brinzolamide 1% Ophth Soln 10 ml Bottle EA EYE SCH ×2 (13:07→21:10)
[2018-01-18] MEDS: Glycerin Adult Supp. (12 ct jar) PR SCH (13:08)
[2018-01-18] MEDS: Heparin 5,000 UNITS/ML VIAL SC SCH ×3 (13:08→20:36)
[2018-01-18] MEDS: Latanoprost 0.005% Ophth Soln 2.5 ml Bottle EA EYE SCH (13:08)
[2018-01-18] MEDS: Saccharomyces boulardii 250 MG CAP PO SCH (13:09)
[2018-01-18] MEDS: Sodium Chloride 0.9% 1,000 ML IV SCH ×2 (13:09→16:14)
[2018-01-18] MEDS: Senokot S 8.6-50 MG TAB PO SCH ×2 (13:09→21:10)
[2018-01-18] MEDS ORDERED: Ondansetron HCl/PF 4 MG/2 ML Vial ONE (14:57)
[2018-01-18] MEDS ORDERED: PROPOFOL 200 MG/20 ML VIAL ONE (14:57)
[2018-01-18] MEDS ORDERED: Glycopyrrolate 0.2 MG/ML 5 ML SYRINGE ONE (14:57)
[2018-01-18] MEDS ORDERED: Succinylcholine Chloride 20 MG/ML 10 ml SYRINGE FS ONE (14:57)
[2018-01-18] MEDS ORDERED: PHENYLEPHRINE-NS 100 MCG/ML 10 ML SYRINGE ONE (14:57)
[2018-01-18] MEDS ORDERED: Lidocaine 1% PF 5 ML VIAL ONE (14:57)
[2018-01-18] MEDS ORDERED: Dexamethasone 20 MG/5 ML VIAL ONE (14:57)
[2018-01-18] MEDS: Escitalopram Oxalate 20 mg Tablet PO SCH (21:09)
[2018-01-18] MEDS: Famotidine 20 MG TAB PO SCH (21:09)
[2018-01-18] MEDS: Simvastatin 40 MG TAB PO SCH (21:10)
[2018-01-19] MEDS: Acetaminophen 1,000 MG in Premix Bag 1 BAG IVPB SCH ×3 (00:30→17:45)
[2018-01-19] MEDS: MEROPENEM 1 GM/50 ML 1 GM in Premix Bag 1 BAG IVPB SCH ×3 (01:08→21:59)
[2018-01-19 05:39] LABS: #Eosinphils 0.1 thou/uL (0.0-0.7); #Lymphocytes 1.3 thou/uL (1.20-3.40); #Monocytes 1.2 thou/uL (0.11-0.59); %Basophils 0.1 % (0.0-1.0); %Eosinophils 0.3 % (0.0-10.0); %Lymphocytes 5.6 % (21.0-51.0); %Monocytes 5.5 % (0.0-10.0); %Neutrophils 88.5 % (42.0-75.0); Hemoglobin 11.4 g/dL (12.0-16.0); Mean Corpuscular HGB CONC 33.3 g/dL (32.0-36.0); Mean Corpuscular Hemoglobin 33.4 pg (27.0-31.0); Mean Platelet Volume 6.3 fL (7.4-10.4); Platelet Count 548 thou/uL (130-400); RBC Distribution Width 12.6 % (11.5-14.5); White Blood Cell (WBC) Count 22.6 thou/uL (4.8-10.8)
[2018-01-19 05:53] LABS: Anion Gap 23 mmol/L (10-20); BUN (Urea Nitrogen) 26 mg/dL (9.8-20.1); Calc. Creatinine Clearance 21 mL/min (70-130); Calcium 8.6 mg/dL (7.8-10.44); Carbon Dioxide 19 mmol/L (23-31); Chloride 104 mmol/L (98-107); Estimated GFR-MDRD 25; Glucose 72 mg/dL (83-110); Phosphorus 3.7 mg/dL (2.3-4.7); Potassium 4.8 mmol/L (3.5-5.1); Sodium 141 mmol/L (136-145)
[2018-01-19] MEDS: Levothyroxine Sodium 125 MCG TAB PO SCH ×2 (06:21→09:34)
[2018-01-19] MEDS: Brinzolamide 1% Ophth Soln 10 ml Bottle EA EYE SCH ×2 (09:18→20:30)
[2018-01-19] MEDS: Heparin 5,000 UNITS/ML VIAL SC SCH ×3 (09:18→20:06)
[2018-01-19] MEDS: Latanoprost 0.005% Ophth Soln 2.5 ml Bottle EA EYE SCH (09:21)
--- NOTE | 2018-01-19 09:35 | PRG ---
DATE OF SERVICE: 01/19/2018 SUBJECTIVE: Ms. Randall is a 72-year-old white female who was seen by the Renal Service for acute kid josue injury. Renal function is slowly improving over the last several days. She most likely a superi mposed acute tubular necrosis. She was brought to the OR yesterday for an exploratory laparotomy due to the rising white count. A pelvic abscess was noted with acute small-bowel obstruction. Adhesion s were lysed by Dr. Frias. She has no new complaints today. She is still feeling tired. She denies any overt shortness of breath or chest pain. OBJECTIVE: VITAL SIGNS: Blood pressure is 153/73, heart rate 91, respiratory rate 20, temperature 98.4, pulse o x 92%. GENERAL: Noted to be awake, alert, comfortable, not in overt distress. SKIN: Adequate turgor. HEENT: She has slightly pale conjunctivae, anicteric sclerae. NECK: No neck mass, no carotid bruits, no JVD. CHEST: No deformities. LUNGS: Clear breath sounds. No wheezing, no crackles. HEART: Normal sinus rhythm. No murmur, no gallops, no rubs. ABDOMEN: Globular, soft, nontender, no masses. EXTREMITIES: No edema, no deformities. MEDICATIONS: 01/19/2018 - Reviewed. LABORATORY: 01/19/2018 - White count 22.6, hemoglobin 11.4, sodium 141, potassium 4.8, chloride 104, carbon dioxide 19, BUN 26, creatinine 1.94, phosphorus 3.7, calcium 8.6, magnesium 2.0. ASSESSMENT AND PLAN: 1. Acute kidney injury - superimposed acute tubular necrosis, slowly improving. Creatinine noted st ill low at 1.94 today. Continue supportive care. There is no indication for any dialytic interventi on. 2. Periappendiceal abscess - the patient is status post exploratory laparotomy with drainage of the pelvic abscess. Shifted to IV meropenem. 3. We will be rechecking another base met and CBC with this patient tomorrow. Overall I agree with current management.
[2018-01-19] MEDS: Saccharomyces boulardii 250 MG CAP PO SCH (09:40)
[2018-01-19] MEDS: Glycerin Adult Supp. (12 ct jar) PR SCH (10:08)
[2018-01-19] MEDS: Senokot S 8.6-50 MG TAB PO SCH (10:10)
[2018-01-19] MEDS: Sodium Chloride 0.9% 1,000 ML IV SCH (10:23)
--- NOTE | 2018-01-19 10:52 | PRG ---
DATE OF SERVICE: 01/19/2018 SUBJECTIVE: Ms. Randall is a 72-year-old woman who is postop day #1 status post exploratory laparotom y and postoperative day #12 status post laparoscopic appendectomy with drainage of periappendiceal ab scess. The patient reports adequate pain control today. She is awake and alert. She has good urina ry output. She is on nasal cannula oxygen at 3 liters achieving 96% oxygen saturation. OBJECTIVE: VITAL SIGNS: Remainder of vital signs includes blood pressure 133/69, pulse is 91, respiratory rate is 18, maximum temperature in the last 24 hours is 98.4 degrees Fahrenheit. HEENT: Reveals normocephalic and atraumatic. HEART: Reveals regular rate and rhythm, no murmurs or gallops auscultated. CHEST: Clear to auscultation bilaterally. Her breathing is regular and unlabored. ABDOMEN: Soft and nondistended. Nasogastric tube has scant nonbilious effluent this morning. NEUROLOGIC: Reveals no focal deficits present. LABORATORY DATA: Today includes a CBC with 22,600 white blood cells, hemoglobin and hematocrit are 1 1.4 and 34.1 respectively. Platelet count is 548,000. Metabolic profile: Sodium 141, potassium is 4.8, chloride is 104, bicarbonate is 19, BUN is 26, creatinine is improved at 1.94. This is in contr ast to BUN and creatinine of 24 and 2.11 yesterday. Magnesium is 2.0, phosphorus 3.7. IMPRESSION: 1. Postoperative day #1, status post exploratory laparotomy. 2. Resolving acute kidney injury. PLAN: 1. Nasogastric tube will be clamped and residuals followed every 4 hours. 2. Brooks catheter will be discontinued. The patient is encouraged to increase activity as tolerated . She is otherwise hemodynamically improved.
[2018-01-19] MEDS ORDERED: ALPRAZolam 0.25 MG TAB PO SCH (14:00)
[2018-01-19] MEDS: ALPRAZolam 0.25 MG TAB PO SCH (20:05)
[2018-01-19] MEDS: Escitalopram Oxalate 20 mg Tablet PO SCH (20:05)
[2018-01-19] MEDS: Famotidine 20 MG TAB PO SCH (20:05)
[2018-01-19] MEDS: Simvastatin 40 MG TAB PO SCH (20:08)
[2018-01-19] MEDS: Dorzolamide HCl 2% Ophth Soln 10 ml Bottle EA EYE SCH (20:31)
[2018-01-19] MEDS: Brimonidine Tartrate 0.2% Ophth Soln 5 ml Bottle EA EYE SCH (20:31)
[2018-01-19] MEDS ORDERED: Non-Formulary Item 1 EACH (Brinzolamide/Brimonidine Tart [Simbrinza 1%/0.2% Ophth Susp] 1 EA EYE SCH (21:00)
[2018-01-19] MEDS: Metoclopramide HCl 10 MG/2 ML VIAL IVP SCH (22:09)
[2018-01-20] MEDS: Acetaminophen 1,000 MG in Premix Bag 1 BAG IVPB SCH ×3 (00:28→13:33)
[2018-01-20] MEDS: ALPRAZolam 0.25 MG TAB PO SCH ×4 (04:50→19:42)
[2018-01-20 06:11] LABS: Anion Gap 21 mmol/L (10-20); BUN (Urea Nitrogen) 25 mg/dL (9.8-20.1); Calc. Creatinine Clearance 24 mL/min (70-130); Calcium 8.1 mg/dL (7.8-10.44); Carbon Dioxide 18 mmol/L (23-31); Chloride 105 mmol/L (98-107); Estimated GFR-MDRD 29; Glucose 84 mg/dL (83-110); Magnesium 1.6 mg/dL (1.6-2.6); Phosphorus 3.1 mg/dL (2.3-4.7); Sodium 140 mmol/L (136-145)
[2018-01-20] MEDS: Metoclopramide HCl 10 MG/2 ML VIAL IVP SCH ×3 (06:13→22:04)
[2018-01-20] MEDS: Levothyroxine Sodium 125 MCG TAB PO SCH (06:14)
[2018-01-20 06:20] LABS: Band 10 % (5-11); Eosinophils 1 % (0-10); Hemoglobin 10.3 g/dL (12.0-16.0); Lymphocytes 9 % (21-51); MDiff Complete? YES; Mean Corpuscular HGB CONC 33.4 g/dL (32.0-36.0); Mean Corpuscular Hemoglobin 33.4 pg (27.0-31.0); Mean Platelet Volume 6.1 fL (7.4-10.4); Metamyelocyte 2 % (0-0); Monocytes 5 % (0-10); Myelocyte 4 % (0-0); Neutrophil 68 % (42-75); PLT Morphology Comment Appears Increased; Platelet Count 527 thou/uL (130-400); RBC Distribution Width 12.6 % (11.5-14.5); Reactive Lymphocytes 1 % (0-10); White Blood Cell (WBC) Count 13.6 thou/uL (4.8-10.8)
[2018-01-20] MEDS ORDERED: Magnesium Sulfate 3 GM in Sodium Chloride 0.9% 100 ML IVPB SCH (07:45)
[2018-01-20] MEDS: Heparin 5,000 UNITS/ML VIAL SC SCH ×3 (08:46→19:41)
[2018-01-20] MEDS: Brimonidine Tartrate 0.2% Ophth Soln 5 ml Bottle EA EYE SCH ×2 (08:46→19:42)
[2018-01-20] MEDS: Dorzolamide HCl 2% Ophth Soln 10 ml Bottle EA EYE SCH ×2 (08:47→19:42)
[2018-01-20] MEDS: Brinzolamide 1% Ophth Soln 10 ml Bottle EA EYE SCH ×2 (08:47→19:43)
--- NOTE | 2018-01-20 09:27 | PRG ---
DATE OF SERVICE: 01/20/2018 SERVICE: Renal Medicine. SUBJECTIVE: Ms. Randall is a 72-year-old white female being followed by the Renal Service for her acu te kidney injury. The feeling is she may have a superimposed acute tubular necrosis. Renal function is slowly improving over time. She also underwent another re-exploration of her abdomen. Pelvic ab scess was noted and this was drained. She was started on IV meropenem. She is feeling much better t his morning. Abdominal fullness is decreased. The patient denies any chest pain or shortness of maryanne ath. PHYSICAL EXAMINATION: VITAL SIGNS: Blood pressure 119/63, heart rate 97, respiratory rate 16, temperature 98.2, pulse ox 9 4%. GENERAL: Noted to be awake, alert, comfortable, not in distress SKIN: Adequate turgor. HEENT: Slightly pale conjunctivae, anicteric sclerae. NECK: No neck mass, no carotid bruits. No JVD. CHEST: No deformities. LUNGS: Clear breath sounds, no wheezing, no crackles. HEART: Normal sinus rhythm. No murmur, no gallops or rubs. ABDOMEN: Globular, soft, nontender, no masses. Mildly distended abdomen. EXTREMITIES: No edema. MEDICATIONS: Of 01/20/2018 was reviewed. LABORATORY DATA: Of 01/20/2018, white count 13.6, hemoglobin 10.3. Sodium 140, potassium 4, chlorid e 105, carbon dioxide 18, BUN 25, creatinine 1.73, glucose 84, calcium 8.1, phosphorus 3.1, magnesium 1.6. ASSESSMENT AND PLAN: 1. Acute kidney injury - secondary to presumed acute tubular necrosis, slowly improving renal functi on. Creatinine 1.7 is much improved when compared back several days ago where the creatinine was roman d to have peaked at a value of 3.5. 2. Status post exploratory laparotomy - drainage of pelvic abscess was done. There is clinical impr ovement with regards to her infection. White count is dramatically decreased today. The abdominal d iscomfort is much improved. 3. Borderline anemia. Continue to observe. There is no indication for any dialytic intervention. Agree with current management.
[2018-01-20] MEDS: MEROPENEM 1 GM/50 ML 1 GM in Premix Bag 1 BAG IVPB SCH ×2 (09:53→22:05)
[2018-01-20] MEDS: Saccharomyces boulardii 250 MG CAP PO SCH (09:53)
[2018-01-20] MEDS: Glycerin Adult Supp. (12 ct jar) PR SCH (09:54)
[2018-01-20] MEDS ORDERED: Glycerin Adult Supp. (12 ct jar) RC SCH (10:00)
--- NOTE | 2018-01-20 10:27 | PRG ---
DATE OF SERVICE: 01/20/2018 SUBJECTIVE: Ms. Randall is a 72-year-old woman postop day #2 status post exploratory laparotomy and d rainage of pelvic abscess. She is also postop day #13 today status post laparoscopic appendectomy wi th drainage of periappendiceal abscess. Patient denies any nausea or vomiting this morning. She has not passed any flatus. She ambulates with minimum difficulty. She reports adequate pain control. OBJECTIVE: VITAL SIGNS: This morning includes blood pressure 118/68, pulse is 97, respiratory rate is 16, tempe rature is 98.3 degrees Fahrenheit and oxygen saturation is 94% on 2 liters by nasal cannula oxygen. HEART: Reveals regular rate and rhythm. LUNGS: Clear to auscultation bilaterally. Breathing is regular and unlabored. ABDOMEN: Soft and moderately distended. She has incisional tenderness to palpation with no signific ant gross rebound tenderness present. Bowel sounds are hypoactive. NEUROLOGIC: Examination reveals no focal deficits present. LABORATORY DATA: Laboratory findings today includes CBC with improving white blood cell count at 13, 600. This is in contrast to 22,600 yesterday. Hemoglobin and hematocrit are stable at 10.3 and 31.0 respectively. Platelet count is stable at 527,000. Metabolic profile: Sodium 140, potassium is 4. 0, chloride is 105, bicarbonate is 18, BUN 25 and creatinine is 1.73. This is a significant improvem ent from BUN and creatinine yesterday of 26 at 1.94 respectively. Glucose 84, magnesium 1.6 and phos phorus is 3.1. IMPRESSION: 1. Postoperative day #2, status post exploratory laparotomy and drainage of pelvic abscess. 2. Adynamic ileus. 3. Acute hypomagnesemia. PLAN: 1. Correct abnormal electrolytes. 2. Increase activity as tolerated. 3. Continue with IV antibiotic therapy. Continue with bowel rest until return of bowel function. 4. Continue to monitor urinary output for resolution of the acute kidney injury. The above findings and plan discussed with the patient and at bedside. They indicate underst anding of information given. I answered their questions.
--- NOTE | 2018-01-20 10:36 | CT ---
CT GUIDED FLUID DRAINAGE OF THE PELVIS: CLINICAL HISTORY: Recent appendicitis with associated pelvic fluid/intraabdominal/pelvic inflammation. PROCEDURE: Informed consent was obtained from the patient. The patient was escorted to the procedural suite and placed into a prone position. An approachable fluid collection at the left aspect of the pelvic cul -de-sac was located with CT plumbing and heating contractor imaging. Using a grid and CT fluoroscopic imaging, the accessible fluid pocket was localized for drainage purposes. Utilizing standard sterile prepping and draping, t he soft tissues of the low back and left gluteal region were sterilized and subsequently anesthetized . The patient was administered conscious sedation by the radiology nurse, Ayanna Carvajal, and monito red accordingly, in stable condition, throughout the duration of the exam. Utilizing a 20 gauge need le, uneventful access into the fluid collection of interest at the posterior left pelvis was performe d and documented with the imaging, which was stored for documentation. A small volume of thick, exsa nguinous fluid was aspirated from the fluid collection of interest. The needle was removed. The spe cimen was placed into a sterile syringe and sent to the laboratory for further analysis. Post proced ural image did reveal post procedural air and diminished volume of the fluid collection of interest. No procedural complications. IMPRESSION: Technically successful fluid drainage of the posterior left pelvis. The specimen was sent to the lab oratory for analysis. Results are pending.
[2018-01-20] MEDS: Sodium Chloride 0.9% 1,000 ML IV SCH ×2 (13:33→19:43)
[2018-01-20] MEDS: PRE FILLED SC SCH (17:16)
[2018-01-20] MEDS: NEOSTIGMINE SC SCH (17:16)
[2018-01-20] MEDS: Famotidine 20 MG TAB PO SCH (19:41)
[2018-01-20] MEDS: Escitalopram Oxalate 20 mg Tablet PO SCH (19:41)
[2018-01-20] MEDS: Simvastatin 40 MG TAB PO SCH (19:42)
[2018-01-21] MEDS: PRE FILLED SC SCH ×2 (00:09→08:12)
[2018-01-21] MEDS: NEOSTIGMINE SC SCH ×2 (00:09→08:12)
[2018-01-21] MEDS: ALPRAZolam 0.25 MG TAB PO SCH ×3 (05:09→20:06)
[2018-01-21] MEDS: Sodium Chloride 0.9% 1,000 ML IV SCH ×2 (05:43→08:51)
[2018-01-21 06:17] LABS: #Eosinphils 0.4 thou/uL (0.0-0.7); #Lymphocytes 1.1 thou/uL (1.20-3.40); #Monocytes 0.9 thou/uL (0.11-0.59); #Neutrophils 8.2 thou/uL (1.40-6.50); %Basophils 0.3 % (0.0-1.0); %Eosinophils 3.5 % (0.0-10.0); %Lymphocytes 10.2 % (21.0-51.0); %Monocytes 8.7 % (0.0-10.0); %Neutrophils 77.3 % (42.0-75.0); Hemoglobin 9.9 g/dL (12.0-16.0); Mean Corpuscular HGB CONC 34.5 g/dL (32.0-36.0); Mean Corpuscular Hemoglobin 34.1 pg (27.0-31.0); Mean Corpuscular Volume 98.9 fL (78.0-98.0); Platelet Count 593 thou/uL (130-400); RBC Distribution Width 12.6 % (11.5-14.5); Red Blood Cell (RBC) Count 2.89 mill/uL (4.20-5.40); White Blood Cell (WBC) Count 10.6 thou/uL (4.8-10.8)
[2018-01-21 06:21] LABS: Anion Gap 18 mmol/L (10-20); BUN (Urea Nitrogen) 20 mg/dL (9.8-20.1); Calc. Creatinine Clearance 30 mL/min (70-130); Calcium 7.9 mg/dL (7.8-10.44); Carbon Dioxide 20 mmol/L (23-31); Chloride 110 mmol/L (98-107); Estimated GFR-MDRD 37; Glucose 82 mg/dL (83-110); Potassium 3.5 mmol/L (3.5-5.1); Sodium 144 mmol/L (136-145)
[2018-01-21] MEDS: Metoclopramide HCl 10 MG/2 ML VIAL IVP SCH ×3 (06:30→22:12)
[2018-01-21] MEDS: Levothyroxine Sodium 125 MCG TAB PO SCH (06:31)
[2018-01-21] MEDS: Brinzolamide 1% Ophth Soln 10 ml Bottle EA EYE SCH ×2 (08:11→19:57)
[2018-01-21] MEDS: Brimonidine Tartrate 0.2% Ophth Soln 5 ml Bottle EA EYE SCH ×2 (08:11→19:57)
[2018-01-21] MEDS: Dorzolamide HCl 2% Ophth Soln 10 ml Bottle EA EYE SCH ×2 (08:11→19:57)
[2018-01-21] MEDS: Saccharomyces boulardii 250 MG CAP PO SCH (08:12)
[2018-01-21] MEDS: Heparin 5,000 UNITS/ML VIAL SC SCH ×3 (08:12→20:06)
[2018-01-21] MEDS: Glycerin Adult Supp. (12 ct jar) RC SCH (08:12)
[2018-01-21] MEDS ORDERED: Furosemide 40 MG/4 ML VIAL SLOW IVP SCH (08:30)
[2018-01-21 09:20] LABS: Magnesium 1.6 mg/dL (1.6-2.6); Phosphorus 2.9 mg/dL (2.3-4.7)
[2018-01-21] MEDS: MEROPENEM 1 GM/50 ML 1 GM in Premix Bag 1 BAG IVPB SCH ×2 (09:44→22:01)
--- NOTE | 2018-01-21 10:22 | PRG ---
DATE OF SERVICE: 01/21/2018 SUBJECTIVE: Ms. Randall is a 72-year-old white female who was seen by the Renal Service for acute kid josue injury. She most likely had a superimposed acute tubular necrosis. However, renal function has been improving over time. She also had a repeat status post exploratory laparotomy due to a pelvic a bscess. This was drained. The patient has slowly been improving clinically. Abdominal fullness is much improved. In addition, the patient's white count has dropped to near normal. Earlier today due to complaints of leg edema she was given a 1 time dose of furosemide. She diuresed very well with this. No complaints of chest pain or shortness of breath. OBJECTIVE: VITAL SIGNS: Blood pressure 124/65, heart rate 107, respiratory rate 20, O2 sat 90%. GENERAL: Noted to be awake, alert, sitting comfortable, not in distress SKIN: Adequate turgor. HEENT: Pinkish conjunctivae, anicteric sclerae. NECK: No neck mass, no carotid bruits, no JVD. CHEST: No deformities. LUNGS: Decreased breath sounds. HEART: Normal sinus rhythm. No murmur, no gallops or rubs. ABDOMEN: Globular, soft, nontender, no masses. EXTREMITIES: Positive for edema. MEDICATIONS: 01/21/2018 - Reviewed. LABORATORY: 01/21/2018 - White count 10.6, hemoglobin 9.9. Sodium 144, potassium 3.5, chloride 110, carbon dioxide 20, BUN 20, creatinine 1.39, calcium is 7.9, magnesium is 1.6. ASSESSMENT AND PLAN: 1. Acute kidney injury - secondary to acute tubular necrosis. Slowly improving. Agree with current management. Due to the leg edema, mild shortness of breath and mild hypoxemia, I agree with furosem nicole 40 mg IV daily. I would also suggest that we hold off the IV fluid to a Hep-Lock. 2. Status post exploratory laparotomy, status pelvic abscess, clinically improving. White count is now within normal. Surgery is following. I agree with current management.
[2018-01-21] MEDS ORDERED: Magnesium Sulfate 3 GM in Sodium Chloride 0.9% 100 ML IVPB SCH (11:30)
[2018-01-21] MEDS ORDERED: Potassium Phosphate 30 MMOL in Sodium Chloride 0.9% 500 ML IVPB SCH (11:30)
--- NOTE | 2018-01-21 11:30 | PRG ---
DATE OF SERVICE: 01/21/2018 SUBJECTIVE: Ms. Randall is a 72-year-old woman who is postop day #3 status post exploratory laparotom y and drainage of a pelvic abscess. The patient is awake and alert, reporting better pain control to day. She endorses 2 bowel movements. She denies any dyspnea or syncope. OBJECTIVE: VITAL SIGNS: Today includes blood pressure which is 124/65, pulse is 105, respiratory rate is 20, te mperature is 98.2 degrees Fahrenheit, oxygen saturation is 93% on 2 liters by nasal cannula oxygen. HEENT: Reveals normocephalic and atraumatic. Pupils are equal, round, and reactive to light and acc ommodation. Extraocular muscles are intact bilaterally. No sclerae icterus present. HEART: Reveals regular rate with sinus tachycardia. No murmurs or gallops auscultated. CHEST: Clear to auscultation bilaterally. Breathing is regular and unlabored. ABDOMEN: Soft, moderately distended with incisional tenderness to palpation. Bowel sounds in all 4 quadrants appear normoactive. EXTREMITIES: With 2+ radial and pedal pulses bilaterally. No ankle edema is present. NEUROLOGIC: Reveals no focal deficits present. LABORATORY DATA: Today includes a CBC with 10,600 white blood cells, hemoglobin and hematocrit are 9 .9 and 28.6 respectively. Platelet count is 593,000. Metabolic profile: Sodium 144, potassium is 3.5, chloride is 110, bicarbonate 20, BUN is 20, creatin ine is 1.39, glucose is 82, magnesium is 1.6, phosphorus is 2.9. IMPRESSION: 1. Postop day #3 status post exploratory laparotomy with drainage of pelvic abscess. 2. Resolving adynamic ileus. 3. Acute hypokalemia. 4. Acute hypophosphatemia. 5. Acute hypomagnesemia. PLAN: 1. Correct abnormal electrolytes. 2. The patient will be started on full liquid diet and we will increase activity as the patient tole rates. The above findings and plan discussed with the patient who indicates understanding of information giv en. I answered her questions.
[2018-01-21] MEDS ORDERED: Potassium Phosphate 30 MMOL, Magnesium Sulfate 3 GM in Sodium Chloride 0.9% 500 ML IVPB SCH (11:45)
[2018-01-21] MEDS: Simvastatin 40 MG TAB PO SCH (20:05)
[2018-01-21] MEDS: Famotidine 20 MG TAB PO SCH (20:05)
[2018-01-21] MEDS: Escitalopram Oxalate 20 mg Tablet PO SCH (20:05)
[2018-01-22] MEDS: ALPRAZolam 0.25 MG TAB PO SCH ×3 (03:35→21:06)
[2018-01-22 04:54] LABS: Anion Gap 16 mmol/L (10-20); BUN (Urea Nitrogen) 15 mg/dL (9.8-20.1); Calc. Creatinine Clearance 31 mL/min (70-130); Calcium 8.2 mg/dL (7.8-10.44); Carbon Dioxide 22 mmol/L (23-31); Chloride 106 mmol/L (98-107); Estimated GFR-MDRD 39; Glucose 97 mg/dL (83-110); Magnesium 1.7 mg/dL (1.6-2.6); Phosphorus 3.3 mg/dL (2.3-4.7); Potassium 3.3 mmol/L (3.5-5.1); Sodium 141 mmol/L (136-145)
[2018-01-22 05:27] LABS: Band 21 % (5-11); Eosinophils 3 % (0-10); Lymphocytes 8 % (21-51); MDiff Complete? YES; Mean Corpuscular HGB CONC 34.4 g/dL (32.0-36.0); Mean Corpuscular Hemoglobin 33.9 pg (27.0-31.0); Mean Corpuscular Volume 98.6 fL (78.0-98.0); Mean Platelet Volume 6.2 fL (7.4-10.4); Monocytes 8 % (0-10); Neutrophil 59 % (42-75); PLT Morphology Comment Appears Increased; Platelet Count 663 thou/uL (130-400); RBC Distribution Width 12.8 % (11.5-14.5); Red Blood Cell (RBC) Count 3.23 mill/uL (4.20-5.40)
[2018-01-22] MEDS: Levothyroxine Sodium 125 MCG TAB PO SCH (06:04)
[2018-01-22] MEDS: Metoclopramide HCl 10 MG/2 ML VIAL IVP SCH ×3 (06:04→21:07)
[2018-01-22] MEDS ORDERED: Potassium Chloride 40 MEQ, Magnesium Sulfate 2 GM in Sodium Chloride 0.9% 250 ML 250 ML IVPB SCH (07:30)
[2018-01-22] MEDS: Heparin 5,000 UNITS/ML VIAL SC SCH ×3 (08:39→21:08)
[2018-01-22] MEDS: Saccharomyces boulardii 250 MG CAP PO SCH (08:39)
[2018-01-22] MEDS: Brimonidine Tartrate 0.2% Ophth Soln 5 ml Bottle EA EYE SCH ×2 (08:39→21:06)
[2018-01-22] MEDS: Glycerin Adult Supp. (12 ct jar) RC SCH (08:40)
[2018-01-22] MEDS: Brinzolamide 1% Ophth Soln 10 ml Bottle EA EYE SCH ×2 (08:40→21:06)
[2018-01-22] MEDS: Dorzolamide HCl 2% Ophth Soln 10 ml Bottle EA EYE SCH ×2 (08:40→21:06)
[2018-01-22] MEDS: MEROPENEM 1 GM/50 ML 1 GM in Premix Bag 1 BAG IVPB SCH (09:46)
[2018-01-22] MEDS ORDERED: traMADol HCl 50 MG TAB PO PRN (10:11)
[2018-01-22] MEDS ORDERED: Furosemide 20 MG TAB PO SCH ×2 (10:15→10:30)
[2018-01-22] MEDS: Acetaminophen 500 MG TAB PO SCH ×3 (10:50→22:27)
[2018-01-22] MEDS: traMADol HCl 50 MG TAB PO SCH ×3 (10:50→22:26)
--- NOTE | 2018-01-22 11:16 | RAD ---
TWO VIEW ABDOMEN: History: Abdominal pain, abdominal distention. Comparison: Supine abdominal film, 01-17-18 which revealed gas filled dilated loops of small bowel. FINDINGS: Supine and upright views of the abdomen obtained. There is scattered stool and gas in the colon with gas and stool at the level of the rectum. There are gas filled mildly distended loops of small bowel which appear nonspecific. There is no free air or mass effect. IMPRESSION: Mild increased small bowel gas which appears nonspecific. POS: [facility]
[2018-01-22] MEDS ORDERED: Polyethylene Glycol 3350 17 GM Packet PO SCH ×2 (12:45→13:00)
--- NOTE | 2018-01-22 12:58 | PRG ---
DATE OF SERVICE: 01/22/2018. SUBJECTIVE: Ms. Randall is awake and alert today. She reports moderate abdominal pain. She is passi ng flatus, but denies any bowel movement in the last 24 hours; however. Urinary output has been adeq uate. OBJECTIVE: VITAL SIGNS: This morning includes blood pressure 157/82, pulse 96, respiratory rate is 20, temperat ure is 98.5 degrees Fahrenheit, oxygen saturation is 99% on 3 liters by nasal cannula oxygen. HEENT: Reveals normocephalic and atraumatic. HEART: Reveals regular rate and rhythm, no murmurs or gallops auscultated. LUNGS: Clear to auscultation bilaterally. Breathing regular and unlabored. ABDOMEN: Soft and moderately distended with gas. Incision is intact, clean, and dry. She has bowel sounds in all 4 quadrants. She has no peritoneal signs on examination. NEUROLOGIC: Reveals no focal deficits present. LABORATORY DATA: Today includes a CBC with 11,000 white blood cells, hemoglobin and hematocrit are 1 1.0 and 31.8 respectively. Platelet count is 663,000. Metabolic profile: Sodium 141, potassium 3.3 , chloride is 106, bicarbonate 22, BUN 15, creatinine is 1.33, which is baseline. Glucose is 97, caren sphorus is 3.3, magnesium is 1.7. IMPRESSION: 1. Postoperative day #4 status post exploratory laparotomy and drainage of pelvic abscess. 2. Resolving adynamic ileus. 3. Acute hypokalemia. 4. Acute hypomagnesemia. 5. Acute hypophosphatemia. PLAN: 1. Correct abnormal electrolytes. 2. Abdominal x-ray today reveals nonspecific gas pattern with gas extending into the colon and rectu m. 3. We will convert antibiotic therapy to p.o. intake. Diet will be advanced. We will encourage the patient to increase activity as tolerated. We will anticipate discharge of the patient tomorrow if she continues to tolerate general diet and oral antibiotic intake.
[2018-01-22] MEDS: metroNIDAZOLE 500 MG TAB PO SCH ×2 (15:03→21:06)
[2018-01-22] MEDS: Senokot 8.6 MG TAB PO SCH (21:06)
[2018-01-22] MEDS: Simvastatin 40 MG TAB PO SCH (21:06)
[2018-01-22] MEDS: Famotidine 20 MG TAB PO SCH (21:07)
[2018-01-22] MEDS: Escitalopram Oxalate 20 mg Tablet PO SCH (21:07)
[2018-01-22] MEDS: Sulfameth/Trimethoprim DS 800-160mg TAB PO SCH (21:07)
[2018-01-23] MEDS: traMADol HCl 50 MG TAB PO SCH ×2 (05:15→10:16)
[2018-01-23] MEDS: Levothyroxine Sodium 125 MCG TAB PO SCH (05:16)
[2018-01-23] MEDS: Metoclopramide HCl 10 MG/2 ML VIAL IVP SCH (05:16)
[2018-01-23] MEDS: Acetaminophen 500 MG TAB PO SCH ×2 (05:16→10:16)
[2018-01-23] MEDS: ALPRAZolam 0.25 MG TAB PO SCH ×2 (05:17→12:03)
[2018-01-23 05:33] LABS: Anion Gap 10 mmol/L (10-20); BUN (Urea Nitrogen) 16 mg/dL (9.8-20.1); Calc. Creatinine Clearance 30 mL/min (70-130); Calcium 7.7 mg/dL (7.8-10.44); Carbon Dioxide 28 mmol/L (23-31); Chloride 106 mmol/L (98-107); Estimated GFR-MDRD 37; Glucose 84 mg/dL (83-110); Magnesium 1.7 mg/dL (1.6-2.6); Phosphorus 3.7 mg/dL (2.3-4.7); Potassium 3.2 mmol/L (3.5-5.1); Sodium 141 mmol/L (136-145)
[2018-01-23 06:28] LABS: Band 6 % (5-11); Hemoglobin 9.6 g/dL (12.0-16.0); Hypochromia SLIGHT = 6-15 cells (100X) (0-5/hpf); Lymphocytes 14 % (21-51); MDiff Complete? YES; Mean Corpuscular HGB CONC 35.1 g/dL (32.0-36.0); Mean Corpuscular Hemoglobin 34.3 pg (27.0-31.0); Mean Corpuscular Volume 97.6 fL (78.0-98.0); Monocytes 16 % (0-10); Neutrophil 64 % (42-75); PLT Morphology Comment Appears Increased; Platelet Count 671 thou/uL (130-400); RBC Distribution Width 12.6 % (11.5-14.5); Red Blood Cell (RBC) Count 2.79 mill/uL (4.20-5.40); White Blood Cell (WBC) Count 8.2 thou/uL (4.8-10.8)
[2018-01-23] MEDS ORDERED: Potassium Chloride 40 MEQ in Premix Bag 1 BAG IVPB SCH (07:45)
[2018-01-23] MEDS ORDERED: Magnesium Sulfate 2 GM in Sodium Chloride 0.9% 100 ML IVPB SCH (07:45)
[2018-01-23] MEDS ORDERED: Potassium Chloride 40 MEQ, Magnesium Sulfate 2 GM in Sodium Chloride 0.9% 250 ML 250 ML IVPB SCH (08:00)
[2018-01-23] MEDS: metroNIDAZOLE 500 MG TAB PO SCH (08:36)
[2018-01-23] MEDS: Sulfameth/Trimethoprim DS 800-160mg TAB PO SCH (08:36)
[2018-01-23] MEDS: Saccharomyces boulardii 250 MG CAP PO SCH (08:36)
[2018-01-23] MEDS: Senokot 8.6 MG TAB PO SCH (08:37)
[2018-01-23] MEDS: Glycerin Adult Supp. (12 ct jar) RC SCH (08:39)
[2018-01-23] MEDS: Heparin 5,000 UNITS/ML VIAL SC SCH (08:40)
[2018-01-23] MEDS ORDERED: Polyethylene Glycol 3350 17 GM Packet PO SCH ×2 (09:00)
--- NOTE | 2018-01-23 09:02 | PRG ---
DATE OF SERVICE: 01/23/2018 SUBJECTIVE: Ms. Randall is a 72-year-old white female who was seen by the Renal Service for her acute kidney injury secondary to presumed acute tubular necrosis. Over time the renal function has improv ed. Her renal function is now stable. Her creatinine is stabilizing at about 1.3. No new complaint s. Recently was advanced on her diet. She was also shifted to p.o. antibiotics. Please note she is status post exploratory laparotomy with drainage of a pelvic abscess. She also was initially seen f or appendicitis and underwent laparoscopic appendectomy. No new complaints today, no chest pain or s hortness of breath. PHYSICAL EXAMINATION: VITAL SIGNS: Blood pressure is 120/67, heart rate 84, respiratory rate 20, temperature 97.5, pulse o x is 91%. GENERAL: Noted to be awake, sitting comfortable, not in overt distress. SKIN: Adequate turgor. HEENT: She has pinkish conjunctivae, anicteric sclerae. NECK: No neck mass, no carotid bruits, no JVD. CHEST: No deformities. LUNGS: Decreased breath sounds. HEART: Normal sinus rhythm. No murmur, no gallops, no rubs. ABDOMEN: Globular, soft, nontender, no masses. EXTREMITIES: Trace edema. MEDICATIONS: 01/23/2018 - Reviewed. LABORATORY DATA: 01/23/2018 - White count 8.2, hemoglobin 9.6, sodium 141, potassium 3.2, chloride 1 06, carbon dioxide 28, BUN 16, creatinine 1.39, calcium 7.7, phosphorus 3.7, magnesium 1.7. ASSESSMENT AND PLAN: 1. Acute kidney injury - secondary to acute tubular necrosis. Much improved renal function. Renal function is now stabilizing with the creatinine 1.39. Continue current management. No indication fo r any dialytic intervention. 2. Status post exploratory laparotomy with drainage of pelvic abscess, clinically improving on p.o. antibiotics. 3. Mild hypokalemia. KCl 20 mEq 1 tab now. We will be rechecking a base met and CBC in a.m.
[2018-01-23] MEDS: Brimonidine Tartrate 0.2% Ophth Soln 5 ml Bottle EA EYE SCH (09:08)
[2018-01-23] MEDS: Dorzolamide HCl 2% Ophth Soln 10 ml Bottle EA EYE SCH (09:08)
[2018-01-23] MEDS: Brinzolamide 1% Ophth Soln 10 ml Bottle EA EYE SCH (09:08)
[2018-01-23 12:07] VITALS: BP 127/75; TEMP 97.3
--- NOTE | 2018-01-23 18:57 | DIS ---
DATE OF ADMISSION: 01/07/2018 DATE OF DISCHARGE: 01/23/2018 ADMITTING PHYSICIAN: Dr. Frias. DISCHARGING PHYSICIAN: Dr. Frias. ADMITTING DIAGNOSIS: Acute appendicitis with perforation. DIAGNOSIS ON DISCHARGE: Acute appendicitis with periappendiceal abscess, resolved. OPERATIONS PERFORMED: 1. Laparoscopic appendectomy and drainage of periappendiceal abscess on 01/07/[address] Frias. 2. Exploratory laparotomy and drainage of pelvic abscess on 01/18/[address] Frias. Please see sep arate dictations for the operative report. HISTORY AND HOSPITAL COURSE: A 72-year-old woman who was admitted on 01/07/2018 with acute appendici tis and periappendiceal abscess for which she underwent a laparoscopic appendectomy and drainage of p eriappendiceal abscess. Postoperative course was complicated by acute respiratory distress syndrome as well as acute kidney injury. The patient was seen in consultation by Dr. Cabrera for diastolic car diac dysfunction and Dr. Rigo Linares with Nephrology for acute kidney injury. Her care has include d physical and occupational therapy. The patient was placed on chemical VTE prophylaxis until she wa s ambulatory with a minimum difficulties. Acute kidney injury has since resolved. Currently, the pa tient is on 2 liters by nasal cannula oxygen, achieving 92% to 95% oxygen saturation. She has had a prolonged postoperative recovery due to adynamic ileus, which is currently resolved. Today, the ana ent is evaluated, she is ambulating with minimum difficulty. Her pain is adequately controlled on or al analgesics. She is tolerating general diet, having normal bowel and urinary function. Microbiolo gy from the peritoneal fluid was positive for Proteus mirabilis. Currently, the patient is on Bactri m and Flagyl. She did complete a course of IV meropenem. Clinical examination today reveals a woman who is in good spirits who is in no acute distress. Abdominal examination, wound remains intact, cl jamal, dry, and healing. She has no peritoneal signs on examination. Laboratory studies today include a CBC with normal white blood cell count at 8200. Hemoglobin and hematocrit stable at 9.6 and 27.3 respectively. Platelet count is 671,000. Metabolic profile: Sodium 141, potassium is 3.2, chloride is 106, bicarbonate is 28, BUN is 16, creatinine is 1.39, glucose is 84, magnesium is 1.7, phosphoru s is 3.7. DISCHARGE INSTRUCTIONS: The patient will be discharged home today with the following instructions: She follows up with me in the Surgery Clinic in 2 weeks with a repeat chemistry and CBC. She follows up with her primary care physician in 1 week. She follows up with Dr. Cabrera in the Cardiology Clin ic in 1 month. She is to resume all prehospital medications as prescribed by her primary care physic olivia. Additionally, she is discharged with a prescription for Bactrim DS #10 p.o. b.i.d. as well as F lagyl 500 mg, #15, one p.o. t.i.d. until all taken. She is given a prescription for tramadol 50 mg # 40 to be taken one to two p.o. q.6 hours p.r.n. pain. She may alternate this with Tylenol 1000 mg p. o. q.6 hours. She may take aspirin 325 mg p.o. daily. She is encouraged to ambulate daily to avoid complications of venous thromboembolism. She is also instructed to call me with any questions or pro blems including exacerbation of abdominal pain, intolerance to oral intake marked by nausea or vomiti ng, fever in excess of 101 degrees Fahrenheit. She may shower, but avoid bathtub, soaking or swimmin g. She is to avoid weightlifting in excess of 20 pounds until she has been seen by me. The above in structions were given to the patient and her at bedside. They both indicated understanding o f information given. She has been discharged with home oxygen therapy at 2 liters nasal cannula oxyg en. The patient has expressed deep gratitude for the care and nurture during this hospitalization an d surgery.
== END 2018-01-23 14:25 | disposition home or self-care (01) | DRG 853 ==
LOC: ERS 13:41 → SJJU 14:49 → IMCU/EMU 01-10 10:15 → SURG A 01-12 15:10
PROVIDERS: ADMIT Surgery; ATTEND Surgery
PROC: 0DTJ4ZZ Resection of Appendix, Percutaneous Endoscopic Approach (ICD-10-PCS; principal; 2018-01-07)
PROC: 0W9G3ZZ Drainage of Peritoneal Cavity, Percutaneous Approach (ICD-10-PCS; 2018-01-15)
PROC: 0W9G0ZZ Drainage of Peritoneal Cavity, Open Approach (ICD-10-PCS; 2018-01-18)
DX: A41.9 Sepsis, unspecified organism (principal); K35.3 Acute appendicitis with localized peritonitis; R65.21 Severe sepsis with septic shock; N17.0 Acute kidney failure with tubular necrosis; I50.33 Acute on chronic diastolic (congestive) heart failure; J80 Acute respiratory distress syndrome; E87.1 Hypo-osmolality and hyponatremia; K56.7 Ileus, unspecified; Q43.0 Meckel's diverticulum (displaced) (hypertrophic); E87.6 Hypokalemia; E83.42 Hypomagnesemia; D64.9 Anemia, unspecified; E03.9 Hypothyroidism, unspecified; E78.5 Hyperlipidemia, unspecified; F41.8 Other specified anxiety disorders; Z79.899 Other long term (current) drug therapy; Z87.891 Personal history of nicotine dependence
CPT/HCPCS: 36415; 49060; 71045; 74018; 74019; 74176; 74177; 76770; 77002; 78582; 80048; 80053; 81003; 81015; 82533; 82570; 82805; 83605; 83615; 83690; 83735; 83880; 84100; 84145; 84300; 85007; 85014; 85018; 85025; 85027; 85049; 85610; 85730; 86140; 86850; 86900; 86901; 87040; 87070; 87076; 87077; 87086; 87186; 87205; 87324; 87449; 88112; 88304; 93005; 93010; 93306; 93970; 94640; 96365; 96375; A9540; A9558; G8978-GP-CK; G8979-GP-CI; G8987-GO-CI; G8988-GO-CI; G8989-GO-CI; J0131; J1100; J1170; J1335; J1644; J1885; J1940; J2001; J2185; J2250; J2270; J2405; J2543; J2550; J2704; J2710; J2765; J3010; J3475; J3480; J7050; J7070; J7620; P9045; S0028

== ENCOUNTER 2018-02-25 09:27 | Outpatient (CLI) | payer MEDICARE ==
--- NOTE | 2018-02-25 10:25 | RAD ---
CHEST TWO VIEWS: HISTORY: R07.9, as well as abdominal distention. History of congestive heart failure. TECHNIQUE: PA and lateral views of the chest are obtained. FINDINGS: The lungs demonstrate an area of slight increased density in the right upper lobe. This may represen t a subtle area of right upper lobe pneumonia. The left upper lobe is well aerated. The right and l eft lung bases are unremarkable. Mild pulmonary vascular congestion is seen. IMPRESSION: Some increased right upper lobe opacities, concerning for possible right upper lobe pneumonia. Corre late with follow-up radiographs and clinical correlation. POS: C
== END 2018-02-25 09:28 | disposition home or self-care (01) ==
LOC: SCSRAD 09:27
PROVIDERS: ATTEND Surgery
DX: R07.9 Chest pain, unspecified (principal); R91.8 Other nonspecific abnormal finding of lung field
CPT/HCPCS: 71046

== ENCOUNTER 2018-05-05 06:46 | Outpatient (CLI) | payer MEDICARE ==
--- NOTE | 2018-05-05 10:29 | ULT ---
ULTRASOUND ABDOMEN COMPLETE ULTRASOUND PELVIS WITH TRANSVAGINAL AND TRANSABDOMINAL IMAGING: INDICATION: Abdominal pain, lower abdominal/pelvic wall bulge status post surgery. Chronic renal disease. TECHNIQUE: Zamora-scale ultrasound evaluation of the liver, gallbladder, spleen, pancreas, common bile duct, kidne ys, abdominal aorta, and inferior vena cava (IVC). FINDINGS: There is a benign-appearing hepatic cyst. A focal area of mild wall prominence of the gallbladder is demonstrated on longitudinal imaging of the gallbladder, although is not reproduced on transverse im aging. This could relate to a transient area of wall redundancy rather than a small polyp or stone g iven the absence of redemonstration of the finding. The finding is subcentimeter in size and of doub tful clinical significance. The spleen is not well assessed for comment, nor is the pancreas. The kidneys are small without over t hydronephrosis. Imaging of the ventral lower abdominal and pelvic wall does not reveal a discrete hernia, although sonographic imaging is limited for the purposes of such diagnosis. The uterus and a dnexa are not visualized and the patient reports these having been surgically removed. The urinary b ladder is moderately distended, grossly unremarkable. No ascites is visualized. No abnormal biliary ductal dilatation evident. IMPRESSION: 1. Benign-appearing hepatic cyst. 2. Status post hysterectomy. 3. No acute abnormality visualized in the abdomen or pelvis. POS: [facility]
== END 2018-05-05 06:47 | disposition home or self-care (01) ==
LOC: SCSULT 06:46
PROVIDERS: ATTEND Internal Medicine Nephrology
DX: N18.4 Chronic kidney disease, stage 4 (severe) (principal); Z90.710 Acquired absence of both cervix and uterus
CPT/HCPCS: 76700; 76856

== ENCOUNTER 2019-01-10 10:30 | Emergency (ER) | payer MEDICARE ==
[2019-01-10] MEDS ORDERED: Bacitracin 1 PK ONE (10:51)
== END 2019-01-10 10:58 | disposition home or self-care (01) ==
LOC: SCSER 10:30
DX: T24.502A Corrosion of first degree of unspecified site of left lower limb, except ankle and foot, initial encounter (principal); F41.9 Anxiety disorder, unspecified; E78.5 Hyperlipidemia, unspecified; F32.9 Major depressive disorder, single episode, unspecified; Z79.899 Other long term (current) drug therapy
CPT/HCPCS: 99283

== ENCOUNTER 2019-07-13 06:14 | Outpatient (CLI) | payer MEDICARE ==
[2019-07-13 14:35] LABS: #Eosinphils 0.1 thou/uL (0.0-0.7); #Lymphocytes 3.1 thou/uL (1.20-3.40); #Monocytes 0.8 thou/uL (0.11-0.59); #Neutrophils 4.7 thou/uL (1.40-6.50); %Basophils 0.5 % (0.0-1.0); %Eosinophils 1.2 % (0.0-10.0); %Lymphocytes 35.5 % (21.0-51.0); %Monocytes 8.9 % (0.0-10.0); %Neutrophils 53.9 % (42.0-75.0); Hemoglobin 14.3 g/dL (12.0-16.0); Mean Corpuscular HGB CONC 34.5 g/dL (32.0-36.0); Mean Corpuscular Hemoglobin 33.6 pg (27.0-31.0); Mean Corpuscular Volume 97.2 fL (78.0-98.0); Mean Platelet Volume 6.7 fL (7.4-10.4); Platelet Count 330 thou/uL (130-400); RBC Distribution Width 11.2 % (11.5-14.5); Red Blood Cell (RBC) Count 4.27 mill/uL (4.20-5.40); White Blood Cell (WBC) Count 8.7 thou/uL (4.8-10.8)
[2019-07-13 15:02] LABS: ALT (SGPT) 23 U/L (8-55); AST (SGOT) 30 U/L (5-34); Albumin 3.6 g/dL (3.4-4.8); Alkaline Phosphatase 75 U/L (40-110); Anion Gap 12 mmol/L (10-20); BUN (Urea Nitrogen) 28 mg/dL (9.8-20.1); Bilirubin, Total 0.2 mg/dL (0.2-1.2); Calc. Creatinine Clearance 0 mL/min (70-130); Calcium 8.5 mg/dL (7.8-10.44); Carbon Dioxide 24 mmol/L (23-31); Chloride 104 mmol/L (98-107); Estimated GFR-MDRD 28; Globulin 2.5 g/dL (2.4-3.5); Glucose 101 mg/dL (83-110); Potassium 3.1 mmol/L (3.5-5.1); Protein, Total 6.1 g/dL (6.0-8.3); Sodium 137 mmol/L (136-145)
== END 2019-07-13 06:15 | disposition home or self-care (01) ==
LOC: LABBT 06:14
PROVIDERS: ATTEND Surgery
DX: Z01.818 Encounter for other preprocedural examination (principal); K43.2 Incisional hernia without obstruction or gangrene
CPT/HCPCS: 80053; 85025; 93005; 93010

== ENCOUNTER 2019-07-20 05:42 | Inpatient (IN) | payer MEDICARE ==
[2019-07-13 13:18] VITALS: BMI 20.1
[2019-07-20] MEDS ORDERED: Bupivacaine 0.25% HCL 30 ML VIAL ONE (06:51)
[2019-07-20] MEDS ORDERED: Lidocaine 1% w/Epinephrine 1:100K 20 ML VIAL ONE (06:51)
[2019-07-20] MEDS ORDERED: Fentanyl 100 MCG/2 ML VIAL ONE ×4 (07:01→11:34)
[2019-07-20] MEDS ORDERED: SUGAMMADEX SODIUM 200 MG/2 ML VIAL ONE (09:38)
[2019-07-20] MEDS ORDERED: Ondansetron PF 4 MG/2 ML Vial ONE (10:06)
[2019-07-20] MEDS ORDERED: PROPOFOL 200 MG/20 ML VIAL ONE (10:06)
[2019-07-20] MEDS ORDERED: Dexamethasone 20 MG/5 ML VIAL ONE (10:06)
[2019-07-20] MEDS ORDERED: Rocuronium Bromide 10 MG/ML (10ML VIAL) ONE (10:06)
[2019-07-20] MEDS ORDERED: Lidocaine 1% PF 5 ML VIAL ONE (10:06)
[2019-07-20] MEDS ORDERED: Zolpidem Tartrate 5 MG TAB PO PRN (11:45)
[2019-07-20] MEDS ORDERED: diphenhydrAMINE 25 MG CAP PO PRN (11:45)
[2019-07-20] MEDS ORDERED: diphenhydrAMINE 50 MG/ML VIAL IM PRN (11:45)
[2019-07-20] MEDS ORDERED: diphenhydrAMINE 50 MG/ML VIAL IVP PRN (11:45)
[2019-07-20] MEDS ORDERED: Naloxone HCl 0.4 mg/ml Vial IV PRN (11:45)
[2019-07-20] MEDS ORDERED: fentaNYL Citrate/PF 2,000 MCG in Sodium Chloride 0.9% 60 ML IV PRN (11:45)
[2019-07-20] MEDS ORDERED: Ondansetron PF 4 MG/2 ML Vial IVP PRN ×2 (11:45→13:58)
[2019-07-20] MEDS ORDERED: Communication Order-Pharmacy FS SCH (11:45)
[2019-07-20] MEDS ORDERED: Promethazine HCl 25 MG/ML VIAL IM PRN ×2 (11:45→13:58)
[2019-07-20] MEDS ORDERED: Dextrose 50% Abboject 50 ML SYRINGE SLOW IVP PRN (13:58)
[2019-07-20] MEDS ORDERED: HYDROcodone/Acetaminophen 7.5/325 mg Tablet PO PRN (13:58)
[2019-07-20] MEDS ORDERED: Meclizine HCl 25 MG TAB PO PRN (13:58)
[2019-07-20] MEDS ORDERED: hydrALAZINE 20 MG/ML VIAL SLOW IVP PRN (13:58)
[2019-07-20] MEDS ORDERED: Morphine 4 MG/ML VIAL SLOW IVP PRN (13:58)
[2019-07-20] MEDS ORDERED: Dextrose 5% in Water 1,000 ML IV PRN (13:58)
[2019-07-20] MEDS ORDERED: Morphine 2 MG/ML SYRINGE SLOW IVP PRN (13:58)
--- NOTE | 2019-07-20 15:45 | OP ---
DATE OF PROCEDURE: 07/20/2019 PREOPERATIVE DIAGNOSIS: Incisional hernia. POSTOPERATIVE DIAGNOSIS: Incisional hernia. PROCEDURE PERFORMED: Da Vanessa laparoscopic incisional hernia repair with mesh, 15 x [address] ANESTHESIA: General. ESTIMATED BLOOD LOSS: Minimal. COMPLICATIONS: None. SPECIMEN: None. FINDINGS: There were multiple openings up and down previous midline incision technique. DESCRIPTION OF PROCEDURE: The patient was taken to the operating room and laid supine on the operating room table. After general anesthetic was obtained, a Brooks was placed. The abdomen was shaved, prepped and draped in a sterile fashion. Left subcostal 5 mm Optiview trocar was placed in usual fashion. High-flow pneumoperitoneum was obtained. A right lateral 11 mm balloon trocar was placed. There were multiple defects up and down the previous midline incision. Right lower quadrant 8 mm robot assist was placed. The left subcostal was switched out to an 8 robot assist. All ports were docked to the robot. The adhesions were taken down from the posterior abdominal wall exposing the full extent of the defects. The defect closed was the diastasis of the rectus muscles. There were multiple small defects near the umbilicus and one larger one that was up toward the epigastric area. All adhesions were taken down without injury. #1 V-Loc suture was used to close the diastasis in the fascial defect primarily. This long continuous suture was run from the suprapubic area all the way to the top of the most superior of the defects. Ventralex ST mesh was brought in the sterile field. The nonadherent side was labeled. It was rolled and placed into the abdominal cavity. It was held to the posterior abdominal wall using the needle from the #1 V-Loc. The mesh was sewn to the posterior fascia using a running 2-0 V-Loc. Two of these had to be used to approximate this mesh to the posterior fascia. The nonadherent barrier side was left down against the abdominal viscera. This fully cover the midline closure from above. All needles are removed from the abdomen and accounted for. A measuring tape had been placed in the abdominal cavity and this was removed and accounted for as well. No injury to any intraabdominal structures. All port sites were infiltrated using local anesthetic. Fascial defects were closed using GraNee needle and a 0 Vicryl tie. All ports were removed under camera visualization without bleeding and pneumoperitoneum was let down. 4-0 Monocryl and Dermabond were used to close all skin incisions. The patient was sent to recovery in stable condition. All instrument counts, needle counts, and lap counts were correct. Job ID: [id number]
[2019-07-20] MEDS: Sodium Chloride 0.9% 1,000 ML IV SCH (16:51)
[2019-07-20] MEDS: Escitalopram Oxalate 20 mg Tablet PO SCH (21:21)
[2019-07-20] MEDS: Dorzolamide HCl 2% Ophth Soln 10 ml Bottle EA EYE SCH (21:21)
[2019-07-20] MEDS: Brimonidine Tartrate 0.2% Ophth Soln 5 ml Bottle EA EYE SCH (21:22)
[2019-07-20] MEDS: Famotidine 20 MG TAB PO SCH (21:30)
[2019-07-20] MEDS: Potassium Chloride 10 MEQ TAB PO SCH (21:30)
[2019-07-20] MEDS: Levothyroxine Sodium 125 MCG TAB PO SCH (21:30)
[2019-07-20] MEDS: Atorvastatin Calcium 20 MG TAB PO SCH (21:30)
[2019-07-20] MEDS: Famotidine/PF 20 mg/2ml Vial SLOW IVP SCH (21:30)
[2019-07-21] MEDS: Sodium Chloride 0.9% 1,000 ML IV SCH (04:58)
[2019-07-21] MEDS: ALPRAZolam 0.25 MG TAB PO SCH ×2 (08:12→20:56)
--- NOTE | 2019-07-21 08:29 | PDOC.GSPN ---
Surgery Progress Note: Subj - Subjective Patient reports: no bowel movement, no flatus, pain is less Narrative: Mrs. Haley Randall is a 74 y/o female that is post op day 1 of an incisional hernia repair with mesh. She denies any overnight events and feels that her pain has been better controlled with a DIRECTOR EDUCATION. She was able to eat a banana last night without any nausea or vomiting. Denies any flatulence or bowel movement. Says describes her pain as an 8/10 diffusely distributed over her abdomen and aggravated by sitting/standing. She has been able to ambulate and reports less pain during walking. Has not been using the incentive spirometry Denies any fever, chills, dyspnea, chest pain, lightheadedness, or lower extremity edema. Surgery Progress Note: Obj - Vital signs Vital signs: Vital Signs - Most Recent Temp Pulse Resp BP Pulse Ox 98.3 F 89 16 106/62 94 L 07/21/19 08:21 07/21/19 08:21 07/21/19 08:21 07/21/19 08:21 07/21/19 08:21 - Physical Exam General: moderate pain, other (In no acute distress. Well nourished and cooperative with the exam.) ENT: other (Throat rattling heard during speech) Neck: no bruits, no shivani distention. negative: no lymphadectomy Cardiovascular: regular rate and rhythm. negative: no murmur Respiratory: clear to auscultation, normal expansion, other (On 2L NC.). negative: wheezing Abdomen: tender (diffusely tender without radiation. Voluntary Guarding.) Hernia: none Wound: healing well. negative: drainage, erythma/edema Surgery Progress Note: A/P - Problem (1) S/P Incisional Hernia Repair with Mesh Current Visit: Yes Status: Acute Assessment and Plan: Mrs. Haley Randall is a 74 y/o female Post-Op Day 1 for an Incisional Hernia repair with mesh: She appears to be doing better with DIRECTOR EDUCATION for her abdominal pain. Still at an 8/ 10. She has not had a bowel movement or flatulence but has tolerated food without nausea or vomiting. She is able to ambulate at this time even though it is painful for her to stand up/sit back down. She reports she would prefer to go home today if possible but will continue to monitor her progress during the day. Continue DIRECTOR EDUCATION during her visit. She has not been using her incentive spirometer and can hear some congestion in her throat when she speaks. Recommended she use it at least once an hour if she can and that it would help prevent any post operative pneumonia or atelectasis. If pain improves during the day and she is able to show evidence of gut motility , recommend d/c to home with approval from Dr. Savage Addendum - Physician - Physician Attestation Date/Time: 07/21/19 [id number] I personally performed or re-performed the physical examination and medical decision making. I have verified all student documentation or findings, including history, physical exam and/or medical decision making. DC DIRECTOR EDUCATION HL ivf Home tomorrow
[2019-07-21] MEDS: Potassium Chloride 10 MEQ TAB PO SCH ×2 (08:45→20:56)
[2019-07-21] MEDS: Famotidine 20 MG TAB PO SCH (08:45)
[2019-07-21] MEDS: Magnesium Oxide 400 MG TAB PO SCH (08:45)
[2019-07-21] MEDS: Brimonidine Tartrate 0.2% Ophth Soln 5 ml Bottle EA EYE SCH ×2 (08:46→20:52)
[2019-07-21] MEDS: Dorzolamide HCl 2% Ophth Soln 10 ml Bottle EA EYE SCH ×2 (08:48→20:52)
[2019-07-21] MEDS: Famotidine/PF 20 mg/2ml Vial SLOW IVP SCH ×2 (08:53→20:56)
[2019-07-21] MEDS: Latanoprost 0.005% Ophth Soln 2.5 ml Bottle EA EYE SCH (10:18)
[2019-07-21] MEDS ORDERED: Fentanyl 100 MCG/2 ML VIAL SLOW IVP PRN ×2 (15:39)
[2019-07-21] MEDS ORDERED: HYDROcodone/Acetaminophen 7.5/325 mg Tablet PO PRN (15:39)
[2019-07-21] MEDS: HYDROcodone/Acetaminophen 7.5/325 mg Tablet PO PRN ×2 (16:51→20:55)
[2019-07-21] MEDS: Atorvastatin Calcium 20 MG TAB PO SCH (20:54)
[2019-07-21] MEDS: Levothyroxine Sodium 125 MCG TAB PO SCH (20:54)
[2019-07-21] MEDS: Escitalopram Oxalate 20 mg Tablet PO SCH (20:56)
[2019-07-22] MEDS: ALPRAZolam 0.25 MG TAB PO SCH ×3 (05:31→21:05)
[2019-07-22] MEDS: Magnesium Oxide 400 MG TAB PO SCH (07:59)
[2019-07-22] MEDS: Famotidine 20 MG TAB PO SCH (07:59)
[2019-07-22] MEDS: Dorzolamide HCl 2% Ophth Soln 10 ml Bottle EA EYE SCH ×2 (08:00→20:06)
[2019-07-22] MEDS: Potassium Chloride 10 MEQ TAB PO SCH ×2 (08:00→20:05)
[2019-07-22] MEDS: Brimonidine Tartrate 0.2% Ophth Soln 5 ml Bottle EA EYE SCH ×2 (08:00→20:05)
[2019-07-22] MEDS: HYDROcodone/Acetaminophen 7.5/325 mg Tablet PO PRN (08:00)
[2019-07-22] MEDS: Latanoprost 0.005% Ophth Soln 2.5 ml Bottle EA EYE SCH (08:02)
[2019-07-22] MEDS: Famotidine/PF 20 mg/2ml Vial SLOW IVP SCH ×2 (08:02→20:05)
--- NOTE | 2019-07-22 10:49 | RAD ---
SINGLE VIEW CHEST: Date: 07/22/2019 COMPARISON: 02/25/18. HISTORY: Dyspnea. FINDINGS: Single view of the chest shows normal sized cardiomediastinal silhouette. There are bilateral lower l obe infiltrates, right greater than left. Increased interstitial lung markings are present. IMPRESSION: Bilateral lower lobe pneumonia. POS: [facility]
--- NOTE | 2019-07-22 11:35 | PDOC.GSPN ---
Surgery Progress Note: Subj - Subjective Narrative: Patient complaining of slightly more dyspnea today, more sleepy. Pain improved. Had two norco earlier Surgery Progress Note: Obj - Vital signs Vital signs: Vital Signs - Most Recent Temp Pulse Resp BP Pulse Ox 98.4 F 105 H 18 132/71 92 L 07/22/19 07:40 07/22/19 07:40 07/22/19 07:40 07/22/19 07:40 07/22/19 07:40 - Physical Exam General: no distress Cardiovascular: regular rate and rhythm Respiratory: coarse breath sounds Abdomen: soft, appropriately tender Wound: healing well Surgery Progress Note: A/P - Problem (1) S/P Incisional Hernia Repair with Mesh Current Visit: Yes Status: Acute - Plan Plan: POD 2 lap incisional hernia repair. -Pain control improved on oral -go down to 1 pill at a time not two Lower Lobe pneumonia -started zosyn -consult hospitalist -hold discharge.
[2019-07-22] MEDS: Piperacillin/Tazobactam 3.375 GM in Sodium Chloride 0.9% 100 ML IVPB SCH ×3 (13:41→23:11)
[2019-07-22] MEDS ORDERED: Vancomycin HCl 1 GM in Premix Bag 1 BAG IVPB SCH (15:30)
[2019-07-22 16:00] LABS: Hemoglobin 12.6 g/dL (12.0-16.0); Mean Corpuscular HGB CONC 33.1 g/dL (32.0-36.0); Mean Corpuscular Volume 99.6 fL (78.0-98.0); Mean Platelet Volume 6.7 fL (7.4-10.4); Platelet Count 175 thou/uL (130-400); RBC Distribution Width 11.6 % (11.5-14.5); Red Blood Cell (RBC) Count 3.81 mill/uL (4.20-5.40)
--- NOTE | 2019-07-22 16:05 | CT ---
CT BRAIN WITHOUT CONTRAST: HISTORY: Altered mental status, weakness, status post hernia repair on 07/20/2019 FINDINGS: No evidence of acute infarct, hemorrhage, midline shift or abnormal extra-axial fluid collections is seen. The ventricular size is appropriate and the basilar cisterns are patent. The bony calvarium is intact. The visualized paranasal sinuses and mastoid air cells are well aerated. IMPRESSION: No CT evidence of acute intracranial process.
[2019-07-22 16:16] LABS: Anion Gap 11 mmol/L (10-20); BUN (Urea Nitrogen) 14 mg/dL (9.8-20.1); Calc. Creatinine Clearance 34 mL/min (70-130); Calcium 7.9 mg/dL (7.8-10.44); Carbon Dioxide 23 mmol/L (23-31); Chloride 105 mmol/L (98-107); Estimated GFR-MDRD 46; Glucose 105 mg/dL (83-110); Potassium 4.2 mmol/L (3.5-5.1); Sodium 135 mmol/L (136-145)
[2019-07-22 16:24] LABS: Band 10 % (5-11); Eosinophils 1 % (0-10); Lymphocytes 13 % (21-51); MDiff Complete? YES; Monocytes 2 % (0-10); Neutrophil 72 % (42-75); Platelet Morphology Comment Appears Adequate; RBC Morphology Normal; Reactive Lymphocytes 2 % (0-10)
[2019-07-22 17:41] LABS: Bilirubin Negative (Negative); Blood, Urine Negative (Negative); Clarity Clear (Clear); Glucose, Urine (Dipstick) Normal (Negative); Leukocyte 25 Leu/uL (Negative); Nitrite Negative (Negative); Protein, Urine (Dipstick) 30 mg/dL (Neg-Trace); RBC/HPF 0-3 HPF (0-3); Urobilinogen Normal mg/dL (Less than 2); WBC/HPF 0-3 HPF (0-3)
[2019-07-22 17:42] LABS: Bacteria/HPF 1+ HPF (None Seen); Urine Culture Reflex No No
[2019-07-22] MEDS: Sodium Chloride 0.9% 1,000 ML IV SCH (18:18)
[2019-07-22] MEDS: Escitalopram Oxalate 20 mg Tablet PO SCH (20:05)
[2019-07-22] MEDS: Atorvastatin Calcium 20 MG TAB PO SCH (20:05)
[2019-07-22] MEDS: Levothyroxine Sodium 125 MCG TAB PO SCH (20:06)
--- NOTE | 2019-07-22 21:44 | CON ---
DATE OF CONSULTATION: 07/22/2019 PRIMARY CARE PROVIDER: David Ramirez MD PRIMARY SERVICE ATTENDING: Yeison Savage MD with General Surgery Service. REASON FOR CONSULTATION: Shortness of breath and altered mental status. HISTORY OF PRESENT ILLNESS: This is a 74-year-old female, who was initially admitted under General Surgery Service for incisional hernia undergoing Da Vanessa laparoscopic repair with mesh on 07/20/2019. The patient was monitored postoperatively and apparently developed increasing shortness of breath with altered mental status and confusion. The patient admitted to some dry cough and shortness of breath at which point, a portable chest x-ray was obtained. The patient was noted with infiltrate on the right greater than left lower lobes and given Zosyn by the General Surgery Service. The patient had recently returned from a cruise to [facility], however, exhibited no specific fever or respiratory symptoms per family report. The patient's spouse denies any respiratory symptoms and denies any known exposure while on the cruise ship. The patient received pneumonia and influenza vaccination and are currently up to date. The patient denies any hospitalization for pneumonia, but does state a history of walking pneumonia remotely. PAST MEDICAL HISTORY: 1. Hypothyroidism. 2. Surgical menopause. 3. Glaucoma. 4. Generalized anxiety disorder. 5. Hyperlipidemia. 6. Perforated appendix with peritonitis, 2018. PAST SURGICAL HISTORY: 1. Status post laparoscopy/laparotomy with drainage of pelvic abscess after appendix rupture. 2. Status post laparoscopic incisional hernia repair. 3. Status post total vaginal hysterectomy with bilateral salpingo-oophorectomy. 4. Status post breast implants. CURRENT MEDICATIONS: 1. Simbrinza 1%/0.2% one drop to each eye b.i.d. 2. Premarin 0.625 mg p.o. q.a.m. 3. Xalatan 0.005% one drop to each eye daily. 4. Levothyroxine 125 mcg p.o. at bedtime. 5. Meclizine 25 mg p.o. daily p.r.n. 6. Protonix 20 mg p.o. q.a.m. 7. K-Dur 10 mEq p.o. b.i.d. 8. Seroquel 400 mg p.o. at bedtime. 9. Zocor 40 mg p.o. at bedtime. 10. Xanax 0.25 mg p.o. t.i.d. p.r.n. 11. Lexapro 20 mg p.o. at bedtime. 12. Magnesium oxide 400 mg p.o. daily. ALLERGIES: NO KNOWN DRUG ALLERGIES. FAMILY HISTORY: Father with coronary artery disease and stroke. Mother with depression. SOCIAL HISTORY: , accompanied by her and family in the hospital. No current alcohol, tobacco, or illicit drug use. Former tobacco use, quitting in 1969 after smoking for 10 years. Functional of all activities of daily living. REVIEW OF SYSTEMS: CONSTITUTIONAL: Negative for weight loss or gain, ability to conduct usual activities. SKIN: Negative for rash, itching. EYES: Negative for double vision, pain. ENT/MOUTH: Negative for nose bleeding, neck stiffness, pain, tenderness. CARDIOVASCULAR: Negative for palpitations, dyspnea on exertion, orthopnea. RESPIRATORY: Negative for shortness of breath, wheezing, cough, hemoptysis, fever or night sweats. GASTROINTESTINAL: Negative for poor appetite, abdominal pain, heartburn, nausea, vomiting, constipation, or diarrhea. GENITOURINARY: Negative for urgency, frequency, dysuria, nocturia. MUSCULOSKELETAL: Negative for pain, swelling. NEUROLOGIC/PSYCHIATRIC: Negative for anxiety, depression. ALLERGY/IMMUNOLOGIC: Negative for skin rash, bleeding tendency. Otherwise negative except as stated per HPI. PHYSICAL EXAMINATION: VITAL SIGNS: On admission, blood pressure 100/59, pulse 87, respiratory rate 12, temperature 98.9 degrees Fahrenheit, O2 saturation 96% on 2 L/minute by nasal cannula. GENERAL APPEARANCE: This is a 74-year-old female, alert and oriented x2, pleasant, responsive, in no acute distress. HEENT: Pupils are equal, round, reactive to light and accommodation. Extraocular muscles are intact. No scleral icterus. No conjunctival injection. Nares patent. OP is clear. Oral mucosa dry. NECK: Supple. No cervical adenopathy. No thyromegaly. No carotid bruits. No JVD appreciated. Cervical spine with full active and passive range of motion. No meningeal signs noted. CHEST: Diminished breath sounds in the right lung base. CARDIOVASCULAR: S1, S2 without noted murmur, rub, or gallop. ABDOMEN: Rounded with tenderness to palpation diffusely. Diminished bowel sounds in all 4 quadrants. No palpable mass. Postsurgical changes noted. EXTREMITIES: Warm and dry with fair turgor. No clubbing, cyanosis, or asymmetric edema appreciated. Pulses palpable distally at the dorsalis pedis, posterior tibial, and popliteal arteries bilaterally. Capillary refill less than 2 seconds. NEUROLOGIC: Cranial nerves 2 through 12 are grossly intact. Alert and oriented x2. Not observed ambulatory during this exam. PERTINENT LABORATORY AND X-RAY FINDINGS: Sodium 135, potassium 4.2, chloride 105, CO2 of 23, BUN 14, creatinine 1.15, estimated GFR 46, glucose 105, calcium 7.9. CBC showed a white blood cell count of 10.0, hemoglobin 12.6, hematocrit 38, MCV of 99.6, platelet count 175 with normal differential. Urinalysis showed a specific gravity of 1.016, trace ketones with 11-[address] of the brain without contrast dated 07/22/2019, showed no acute intracranial process. Portable chest x-ray dated 07/22/2019, showed right greater than left infiltrate concerning for pneumonia. ASSESSMENT AND PLAN: 1. Healthcare-associated bacterial pneumonia, suspected gram-positive cocci. Initiate vancomycin 1 g IV q.12 hours with a continuation of Zosyn 3.375 g IV q.6 hours. Add DuoNeb q.4 hours p.r.n. Incentive spirometer at the bedside. Blood cultures x2 pending. 2. Acute metabolic encephalopathy, suspect secondary to #1. Continue treatment as outlined previously. Continue oxygen supplementation to maintain O2 saturations greater than equal to 90%. Limit psychotropic and pain medication. 3. Chronic kidney disease stage 3. Continue intravenous normal saline at 75 mL/h. Avoid nephrotoxic agents and limit contrast exposure. Repeat creatinine in the a.m. 4. Hypothyroidism. Continue levothyroxine 125 mcg daily. 5. Status post incisional hernia repair, postop day #2. Continue general pain control. Out of bed for ambulation. 6. Prophylaxis. SCDs while in bed. Pepcid 20 mg p.o. daily. 7. Code status is full. Surrogate medical decision maker is patient's spouse. Thank you for the consultation. We will continue to follow with primary service. Job ID: [id number]
[2019-07-23 05:44] LABS: Band 12 % (5-11); Eosinophils 1 % (0-10); Hemoglobin 10.8 g/dL (12.0-16.0); Lymphocytes 17 % (21-51); MDiff Complete? YES; Mean Corpuscular HGB CONC 30.9 g/dL (32.0-36.0); Mean Corpuscular Hemoglobin 30.8 pg (27.0-31.0); Mean Corpuscular Volume 99.5 fL (78.0-98.0); Monocytes 5 % (0-10); Neutrophil 65 % (42-75); Platelet Count 188 thou/uL (130-400); Platelet Morphology Comment Appears Adequate; RBC Distribution Width 11.5 % (11.5-14.5); White Blood Cell (WBC) Count 7.5 thou/uL (4.8-10.8)
[2019-07-23 05:58] LABS: BUN (Urea Nitrogen) 15 mg/dL (9.8-20.1); Calc. Creatinine Clearance 32 mL/min (70-130); Calcium 7.9 mg/dL (7.8-10.44); Carbon Dioxide 21 mmol/L (23-31); Estimated GFR-MDRD 44; Glucose 113 mg/dL (83-110)
[2019-07-23 06:07] LABS: Anion Gap 12 mmol/L (10-20); Chloride 110 mmol/L (98-107); Potassium 3.8 mmol/L (3.5-5.1); Sodium 139 mmol/L (136-145)
[2019-07-23] MEDS: Piperacillin/Tazobactam 3.375 GM in Sodium Chloride 0.9% 100 ML IVPB SCH ×4 (06:09→23:17)
[2019-07-23] MEDS: ALPRAZolam 0.25 MG TAB PO SCH ×3 (06:09→21:28)
[2019-07-23] MEDS: Famotidine/PF 20 mg/2ml Vial SLOW IVP SCH (08:40)
[2019-07-23] MEDS: Magnesium Oxide 400 MG TAB PO SCH (08:44)
[2019-07-23] MEDS: Potassium Chloride 10 MEQ TAB PO SCH ×2 (08:44→21:28)
[2019-07-23] MEDS: Dorzolamide HCl 2% Ophth Soln 10 ml Bottle EA EYE SCH ×2 (08:45→21:27)
[2019-07-23] MEDS: Latanoprost 0.005% Ophth Soln 2.5 ml Bottle EA EYE SCH (08:46)
[2019-07-23] MEDS: Brimonidine Tartrate 0.2% Ophth Soln 5 ml Bottle EA EYE SCH ×2 (08:48→21:26)
[2019-07-23] MEDS: Sodium Chloride 0.9% 1,000 ML IV SCH (08:53)
[2019-07-23] MEDS: Famotidine 20 MG TAB PO SCH (09:11)
--- NOTE | 2019-07-23 12:13 | PDOC.HOSPP ---
- Subjective Encounter Date: 07/23/19 Encounter Time: 12:00 Subjective: f/u for AMS, R-sided PNA on Zosyn/Vancomycin. Intermittent confusion this am. Appetite ok. - Objective Vital Signs & Weight: Vital Signs (12 hours) Temp Pulse Resp BP Pulse Ox 07/23/19 08:11 97.6 F 89 20 115/63 93 L 07/23/19 08:10 93 L 07/23/19 08:09 89 18 07/23/19 04:00 97.4 F L 72 18 153/65 H 94 L 07/23/19 01:56 85 20 92 L Weight Weight 110 lb I&O: 07/22/19 07/23/19 07/24/19 06:59 06:59 06:59 Intake Total 991 1225 Output Total 1150 Balance 991 75 Result Diagrams: 07/23/19 04:52 07/23/19 04:52 Additional Labs: Microbiology 07/22/19 16:16 Venous blood - Right Arm Blood Culture - Preliminary Specimen has been received and culture in progress. No Growth to date. 07/22/19 15:45 Venous blood - Right Hand Blood Culture - Preliminary Specimen has been received and culture in progress. No Growth to date. Laboratory Tests 07/22/19 07/22/19 07/23/19 15:45 15:45 04:52 Hgb 12.6 Neutrophils % (Manual) 72 65 Band Neuts % (Manual) 10 12 H Sodium 135 L Creatinine 1.15 H B-Natriuretic Peptide Vitamin B12 Folate 07/23/19 07/23/19 07/23/19 04:52 04:52 04:52 Hgb Neutrophils % (Manual) Band Neuts % (Manual) Sodium Creatinine B-Natriuretic Peptide 569.1 H Vitamin B12 1334 H Folate 16.90 Radiology Reviewed by me: Yes (CT brain - negative) Hospitalist ROS - Medication Medications: Active Medications Generic Name Dose Route Start Last Admin Trade Name Freq PRN Reason Stop Dose Admin Hydrocodone Bitart/Acetaminophen 1 tab 07/21/19 15:39 07/23/19 09:42 [place] 7.5/325 PO 1 tab Q6H PRN Administration Mild Pain (1-3) Albuterol/Ipratropium 3 ml 07/22/19 12:30 07/23/19 08:09 Duoneb NEB 3 ml TID-RT YAZ Administration Albuterol/Ipratropium 3 ml 07/23/19 01:26 07/23/19 01:56 Duoneb NEB 3 ml Q4H PRN Administration SOB &/or Wheezing Alprazolam 0.25 mg 07/21/19 22:00 07/23/19 06:09 Xanax PO 0.25 mg Q8HR YAZ Administration Atorvastatin Calcium 20 mg 07/20/19 21:00 07/22/19 20:05 Lipitor PO 20 mg HS YAZ Administration Brimonidine Tartrate 1 drop 07/20/19 21:00 07/23/19 08:48 Alphagan 0.2% Ophth Soln EA EYE 1 drp BID YAZ Administration Dorzolamide HCl 1 drop 07/20/19 21:00 07/23/19 08:45 Trusopt 2% Ophth Soln EA EYE 1 drp BID YAZ Administration Escitalopram Oxalate 20 mg 07/20/19 21:00 07/22/19 20:05 Lexapro PO 20 mg HS YAZ Administration Estrogens Conjugated 0.625 mg 07/21/19 09:00 07/23/19 08:44 Premarin PO 0.625 mg QAM YAZ Administration Famotidine 20 mg 07/22/19 09:00 07/23/19 09:11 Pepcid PO 20 mg DAILY YAZ Administration Famotidine 20 mg 07/23/19 09:00 07/23/19 08:40 Pepcid SLOW IVP Not Given DAILY YAZ Piperacillin Sod/Tazobactam 100 mls @ 200 mls/hr 07/22/19 12:00 07/23/19 06: 09 Sod 3.375 gm/ Sodium Chloride IVPB 100 mls Q6HR YAZ Administration Sodium Chloride 1,000 mls @ 50 mls/hr 07/22/19 17:30 07/23/19 08:53 Normal Saline 0.9% IV Not Given .Q20H YAZ Latanoprost 1 drop 07/21/19 09:00 07/23/19 08:46 Xalatan 0.005% Ophth Soln EA EYE 1 drop DAILY YAZ Administration Levothyroxine Sodium 125 mcg 07/20/19 21:00 07/22/19 20:06 Synthroid PO 125 mcg HS YAZ Administration Magnesium Oxide 400 mg 07/21/19 09:00 07/23/19 08:44 Magnesium Oxide PO 400 mg DAILY YAZ Administration Potassium Chloride 10 meq 07/20/19 21:00 07/23/19 08:44 Klor-Con 10 PO 10 meq BID YAZ Administration Quetiapine Fumarate 400 mg 07/20/19 21:00 07/22/19 20:05 Seroquel PO 400 mg HS YAZ Administration - Exam General Appearance: NAD, awake alert Eye: PERRL, anicteric sclera ENT: normocephalic atraumatic, no oropharyngeal lesions Neck: supple, symmetric, no JVD, no thyromegaly Heart: RRR, no murmur, no gallops, no rubs, normal peripheral pulses Respiratory - other findings: coarse sounds in bases Gastrointestinal: soft, non-distended, normal bowel sounds, no guarding, tender to palpation Extremities: no cyanosis, no clubbing, no edema Skin: normal turgor, no lesions Neurological: cranial nerve grossly intact, no new deficit Psychiatric: normal affect, oriented to person, oriented to place Hosp A/P (1) HCAP (healthcare-associated pneumonia) Code(s): J18.9 - PNEUMONIA, UNSPECIFIED ORGANISM Status: Acute Plan: Continue Zosyn/Vancomycin, O2 support, Duonebs PRN (2) Acute metabolic encephalopathy Code(s): G93.41 - METABOLIC ENCEPHALOPATHY Status: Acute Plan: Persistent and likely multifactorial, continue supportive mgmt, treat underlying PNA, limit psychotropes and pain medications (3) SEE (acute kidney injury) Code(s): N17.9 - ACUTE KIDNEY FAILURE, UNSPECIFIED Status: Acute Plan: Mild SEE, continue low-volume IVF's, avoid nephrotoxic meds (4) Hypothyroid Code(s): E03.9 - HYPOTHYROIDISM, UNSPECIFIED Status: Chronic Plan: Levothyroxine 125mcg daily - Plan plan discussed w/ family, continue antibiotics, PT/OT, respiratory therapy, incentive spirometry, out of bed/ambulate, DVT proph w/SCDs Stable overall Continue Zosyn/Vancomcyin Duonebs PRN Limit psychotropes/narcotics OOB/ambulate AM lab: BMP
--- NOTE | 2019-07-23 12:41 | PDOC.GSPN ---
Surgery Progress Note: Subj - Subjective Narrative: Not complaining of pain, ambulatory Surgery Progress Note: Obj - Vital signs Vital signs: Vital Signs - Most Recent Temp Pulse Resp BP Pulse Ox 97.6 F 95 18 139/73 92 L 07/23/19 11:15 07/23/19 11:15 07/23/19 11:15 07/23/19 11:15 07/23/19 11:15 - Physical Exam General: no distress Cardiovascular: regular rate and rhythm Respiratory: clear to auscultation Abdomen: soft, appropriately tender Wound: healing well Surgery Progress Note: Results - Labs Result Diagrams: 07/23/19 04:52 07/23/19 04:52 Lab results: Laboratory Results - last 24 hr 07/23/19 07/23/19 07/23/19 04:52 04:52 04:52 WBC 7.5 RBC 3.50 L Hgb 10.8 L Hct 34.8 L MCV 99.5 H MCH 30.8 MCHC 30.9 L RDW 11.5 Plt Count 188 MPV 7.0 L Neutrophils % (Manual) 65 Band Neuts % (Manual) 12 H Lymphocytes % (Manual) 17 L Monocytes % (Manual) 5 Eosinophils % (Manual) 1 Plt Morphology Comment Appears Adequate Sodium 139 Potassium 3.8 Chloride 110 H Carbon Dioxide 21 L Anion Gap 12 BUN 15 Creatinine 1.20 H Estimated GFR (MDRD) 44 Glucose 113 H Calcium 7.9 B-Natriuretic Peptide Vitamin B12 Folate 16.90 07/23/19 07/23/19 04:52 04:52 WBC RBC Hgb Hct MCV MCH MCHC RDW Plt Count MPV Neutrophils % (Manual) Band Neuts % (Manual) Lymphocytes % (Manual) Monocytes % (Manual) Eosinophils % (Manual) Plt Morphology Comment Sodium Potassium Chloride Carbon Dioxide Anion Gap BUN Creatinine Estimated GFR (MDRD) Glucose Calcium B-Natriuretic Peptide 569.1 H Vitamin B12 1334 H Folate Surgery Progress Note: A/P - Problem (1) S/P Incisional Hernia Repair with Mesh Current Visit: Yes Status: Acute (2) HCAP (healthcare-associated pneumonia) Current Visit: Yes Code(s): J18.9 - PNEUMONIA, UNSPECIFIED ORGANISM Status: Acute - Plan Plan: Continue diet as tolerated Appreciate Hospitalist assistance. Dr. Frias covering for me this weeknd I already sent norco/zofran to [facility]
[2019-07-23] MEDS ORDERED: Enoxaparin Sodium 40 MG/0.4 ML SYRINGE SC SCH (12:45)
[2019-07-23] MEDS ORDERED: Vancomycin HCl 0.75 GM in Sodium Chloride 0.9% 250 ML 250 ML IVPB SCH ×2 (17:00→19:00)
[2019-07-23] MEDS: Atorvastatin Calcium 20 MG TAB PO SCH (21:28)
[2019-07-23] MEDS: Levothyroxine Sodium 125 MCG TAB PO SCH (21:28)
[2019-07-23] MEDS: Senokot S 8.6-50 MG TAB PO SCH (21:28)
[2019-07-23] MEDS: Escitalopram Oxalate 20 mg Tablet PO SCH (21:28)
[2019-07-24] MEDS: ALPRAZolam 0.25 MG TAB PO SCH ×2 (05:53→08:32)
[2019-07-24] MEDS: Piperacillin/Tazobactam 3.375 GM in Sodium Chloride 0.9% 100 ML IVPB SCH ×4 (05:53→23:12)
[2019-07-24 06:36] LABS: Hemoglobin 10.7 g/dL (12.0-16.0); Platelet Count 184 thou/uL (130-400)
[2019-07-24 06:50] LABS: Anion Gap 11 mmol/L (10-20); BUN (Urea Nitrogen) 12 mg/dL (9.8-20.1); Calc. Creatinine Clearance 37 mL/min (70-130); Carbon Dioxide 21 mmol/L (23-31); Chloride 112 mmol/L (98-107); Estimated GFR-MDRD 52; Glucose 102 mg/dL (83-110); Potassium 4.2 mmol/L (3.5-5.1); Sodium 140 mmol/L (136-145)
[2019-07-24 06:54] LABS: Vancomycin, Trough 11.4 ug/mL
[2019-07-24] MEDS: Sodium Chloride 0.9% 1,000 ML IV SCH (08:13)
[2019-07-24] MEDS ORDERED: Enoxaparin Sodium 40 MG/0.4 ML SYRINGE SC SCH ×2 (09:00→12:42)
[2019-07-24] MEDS: Acetaminophen 500 MG TAB PO PRN ×2 (09:15→16:35)
[2019-07-24] MEDS ORDERED: Morphine 2 MG/ML SYRINGE SLOW IVP PRN (09:26)
[2019-07-24] MEDS ORDERED: Acetaminophen 500 MG TAB PO PRN (09:27)
[2019-07-24] MEDS ORDERED: Furosemide 20 MG/2 ML VIAL SLOW IVP SCH (09:30)
[2019-07-24] MEDS: Brimonidine Tartrate 0.2% Ophth Soln 5 ml Bottle EA EYE SCH ×2 (09:58→20:01)
[2019-07-24] MEDS: Dorzolamide HCl 2% Ophth Soln 10 ml Bottle EA EYE SCH ×2 (09:59→20:01)
[2019-07-24] MEDS: Magnesium Oxide 400 MG TAB PO SCH (10:00)
[2019-07-24] MEDS: Potassium Chloride 10 MEQ TAB PO SCH ×2 (10:00→20:03)
[2019-07-24] MEDS: Polyethylene Glycol 3350 17 GM Packet PO SCH (10:01)
[2019-07-24] MEDS: Famotidine 20 MG TAB PO SCH (10:01)
[2019-07-24] MEDS: Senokot S 8.6-50 MG TAB PO SCH ×2 (10:02→20:02)
[2019-07-24] MEDS: Latanoprost 0.005% Ophth Soln 2.5 ml Bottle EA EYE SCH (10:06)
--- NOTE | 2019-07-24 10:43 | RAD ---
PORTABLE CHEST: HISTORY: Pneumonia. COMPARISON: 07/22/2019 study. FINDINGS: Heart size is within normal limits. Parenchymal lung changes are not significantly different than th e previous exam with more confluent parenchymal changes in the right lower lobe. IMPRESSION: Stable exam. POS: MENG
[2019-07-24] MEDS: Famotidine/PF 20 mg/2ml Vial SLOW IVP SCH (12:31)
--- NOTE | 2019-07-24 14:35 | PDOC.HOSPP ---
- Subjective Encounter Date: 07/24/19 Encounter Time: 09:30 non-verbal Subjective: pt had sig wheezing, cxr and lasix, d/w son. BNP high, ordered echo. - Objective Vital Signs & Weight: Vital Signs (12 hours) Temp Pulse Resp BP BP Pulse Ox 07/24/19 12:53 96 16 97 07/24/19 12:00 94 L 07/24/19 11:07 98.1 F 100 16 114/64 100 07/24/19 07:15 96.7 F L 100 16 145/63 H 94 L 07/24/19 05:11 98 16 94 L 07/24/19 03:41 98.1 F 102 H 16 126/68 96 Weight Weight 110 lb I&O: 07/23/19 07/24/19 07/25/19 06:59 06:59 06:59 Intake Total 1225 920 Output Total 1150 1000 Balance 75 -80 Result Diagrams: 07/24/19 05:45 07/24/19 05:45 Hospitalist ROS - Medication Medications: Active Medications Generic Name Dose Route Start Last Admin Trade Name Freq PRN Reason Stop Dose Admin Acetaminophen 1,000 mg 07/24/19 11:13 07/24/19 09:15 Tylenol PO 1,000 mg Q6H PRN Administration Headache/Fever or Pain Albuterol/Ipratropium 3 ml 07/22/19 12:30 07/24/19 12:53 Duoneb NEB 3 ml TID-RT YAZ Administration Albuterol/Ipratropium 3 ml 07/23/19 01:26 07/24/19 05:11 Duoneb NEB 3 ml Q4H PRN Administration SOB &/or Wheezing Atorvastatin Calcium 20 mg 07/20/19 21:00 07/23/19 21:28 Lipitor PO 20 mg HS YAZ Administration Brimonidine Tartrate 1 drop 07/20/19 21:00 07/24/19 09:58 [place] 0.2% Ophth Soln EA EYE 1 drp BID YAZ Administration Dorzolamide HCl 1 drop 07/20/19 21:00 07/24/19 09:59 Trusopt 2% Ophth Soln EA EYE 1 drp BID YAZ Administration Enoxaparin Sodium 40 mg 07/24/19 09:00 07/24/19 10:13 Lovenox SC 40 mg 0900 YAZ Administration Escitalopram Oxalate 20 mg 07/20/19 21:00 07/23/19 21:28 Lexapro PO 20 mg HS YAZ Administration Estrogens Conjugated 0.625 mg 07/21/19 09:00 07/24/19 11:18 Premarin PO 0.625 mg QAM YAZ Administration Famotidine 20 mg 07/22/19 09:00 07/24/19 10:01 Pepcid PO 20 mg DAILY YAZ Administration Piperacillin Sod/Tazobactam 100 mls @ 200 mls/hr 07/22/19 12:00 07/24/19 11: 20 Sod 3.375 gm/ Sodium Chloride IVPB 100 mls Q6HR YAZ Administration Sodium Chloride 1,000 mls @ 50 mls/hr 07/22/19 17:30 07/24/19 08:13 Normal Saline 0.9% IV Not Given .Q20H YAZ Latanoprost 1 drop 07/21/19 09:00 07/24/19 10:06 Xalatan 0.005% Ophth Soln EA EYE 1 drop DAILY YAZ Administration Levothyroxine Sodium 125 mcg 07/20/19 21:00 07/23/19 21:28 Synthroid PO 125 mcg HS YAZ Administration Magnesium Oxide 400 mg 07/21/19 09:00 07/24/19 10:00 Magnesium Oxide PO 400 mg DAILY YAZ Administration Polyethylene Glycol 17 gm 07/24/19 09:00 07/24/19 10:01 Miralax PO Not Given DAILY YAZ Potassium Chloride 10 meq 07/20/19 21:00 07/24/19 10:00 Klor-Con 10 PO 10 meq BID YAZ Administration Quetiapine Fumarate 400 mg 07/20/19 21:00 07/23/19 21:28 Seroquel PO 400 mg HS YAZ Administration Senna/Docusate Sodium 1 tab 07/23/19 21:00 07/24/19 10:02 Senokot S PO Not Given BID [facility] - Exam General Appearance: awake alert Eye: PERRL ENT: normocephalic atraumatic Neck: supple, symmetric Heart: RRR Respiratory: no tachypnea, rales, rhonchi, wheezes Gastrointestinal: non-tender, non-distended, normal bowel sounds Extremities: no cyanosis Skin: normal turgor Musculoskeletal - other findings: no edema Hosp A/P - Plan HCAP (healthcare-associated pneumonia) Continue Zosyn/Vancomycin, O2 support, Duonebs PRN -started on - stop on -- switch to PO if asa neg, -b, asa neg x 48hrs -pt has sig.. wheezing - will r/o any other etiol prior to switch of IV abx -cxr 6th - b/l infilterate; R>L -8th CXR - no change from there. (2) Acute metabolic encephalopathy Persistent and likely multifactorial, continue supportive mgmt, treat underlying PNA, limit psychotropes and pain medications on home xanx - on hold (3) SEE (acute kidney injury) Mild SEE, continue low-volume IVF's, avoid nephrotoxic meds (4) Hypothyroid Levothyroxine 125mcg daily Elevated BNP w.. nl Cr - getting echo -as BNP > 500 - will start lasix low dose, and titrate after reviewing the echo.
[2019-07-24] MEDS ORDERED: traMADol HCl 50 MG TAB PO PRN (18:19)
[2019-07-24] MEDS ORDERED: Ibuprofen 200 MG TAB PO PRN (18:19)
[2019-07-24] MEDS ORDERED: ALPRAZolam 0.25 MG TAB PO PRN (18:21)
--- NOTE | 2019-07-24 18:25 | PRG ---
DATE OF SERVICE: 07/24/2019 SUBJECTIVE: Ms. Randall is postoperative day #4, status post da Vanessa laparoscopic incisional hernia repair with mesh. She is currently being treated for postoperative pneumonia. She has a very poor cough effort. She is currently being treated for postoperative pneumonia. She is on 4 L nasal cannula oxygen with oxygen saturation at 94%. She reports shortness of breath. OBJECTIVE: VITAL SIGNS: This morning includes blood pressure 145/63, pulse 100, respiratory rate is 16, temperature 96.7 degrees Fahrenheit, and oxygen saturation 94% on 4 L by nasal cannula oxygen. She promptly desaturate into the low 80s off oxygen. HEENT: Pupils are equal, round, and reactive to light and accommodation. She has bilateral scleral edema present. NECK: She has no jugular venous distention noted. HEART: Reveals regular rate and rhythm. No murmurs or gallops auscultated. LUNGS: Reveals bibasilar rhonchi with few crackles. Breathing otherwise regular and nonlabored. ABDOMEN: Soft, minimally tender to palpation. She has bowel sounds present in all 4 quadrants. NEUROLOGIC: Reveals no focal deficits present. LABORATORY FINDINGS: Today includes stable hemoglobin and hematocrit at 10.7 and 32.0 respectively. Metabolic profile; sodium 140, potassium 4.2, chloride is 112, bicarb is 21, BUN 12, creatinine is 1.04, and glucose is 102. Serum BNP is 569.1, that was yesterday. Chest x-ray today reveals bilateral right greater than left basilar pulmonary opacification with no evidence of pneumothorax. There appears to be cephalization of the hilar vessels. There is no cardiomegaly nevertheless. IMPRESSION: 1. Postoperative day #4, status post de Vanessa laparoscopic ventral hernia repair with mesh. 2. Acute pulmonary insufficiency, likely secondary to acute congestive heart failure. PLAN: 1. Gentle diuresis. 2. Optimize bronchodilator therapy. 3. Increase activity per Physical and Occupational Therapy and encourage deep breath and cough and also use of incentive spirometer. Above findings and plan has been discussed with the patient and family at bedside. They indicated understanding of information given. I have answered their questions. Job ID: [id number]
[2019-07-24] MEDS ORDERED: Vancomycin HCl 1 GM in Premix Bag 1 BAG IVPB SCH (19:00)
[2019-07-24] MEDS: traMADol HCl 50 MG TAB PO PRN (19:11)
[2019-07-24] MEDS: Levothyroxine Sodium 125 MCG TAB PO SCH (20:02)
[2019-07-24] MEDS: Atorvastatin Calcium 20 MG TAB PO SCH (20:02)
[2019-07-24] MEDS: Escitalopram Oxalate 20 mg Tablet PO SCH (20:03)
[2019-07-24] MEDS: Acetaminophen 500 MG TAB PO SCH ×2 (20:03→23:12)
[2019-07-25] MEDS: Sodium Chloride 0.9% 1,000 ML IV SCH (04:26)
[2019-07-25 05:58] LABS: #Eosinphils 0.3 thou/uL (0.0-0.7); #Lymphocytes 1.5 thou/uL (1.20-3.40); #Monocytes 0.6 thou/uL (0.11-0.59); #Neutrophils 3.5 thou/uL (1.40-6.50); %Basophils 0.6 % (0.0-1.0); %Eosinophils 4.3 % (0.0-10.0); %Lymphocytes 25.2 % (21.0-51.0); %Monocytes 9.5 % (0.0-10.0); %Neutrophils 60.4 % (42.0-75.0); Hemoglobin 10.5 g/dL (12.0-16.0); Mean Corpuscular HGB CONC 33.8 g/dL (32.0-36.0); Mean Corpuscular Hemoglobin 33.8 pg (27.0-31.0); Mean Platelet Volume 6.9 fL (7.4-10.4); Platelet Count 207 thou/uL (130-400); RBC Distribution Width 11.6 % (11.5-14.5); White Blood Cell (WBC) Count 5.8 thou/uL (4.8-10.8)
[2019-07-25 06:18] LABS: Anion Gap 12 mmol/L (10-20); BUN (Urea Nitrogen) 15 mg/dL (9.8-20.1); Calc. Creatinine Clearance 26 mL/min (70-130); Calcium 8.4 mg/dL (7.8-10.44); Carbon Dioxide 23 mmol/L (23-31); Chloride 111 mmol/L (98-107); Estimated GFR-MDRD 35; Glucose 79 mg/dL (83-110); Potassium 4.1 mmol/L (3.5-5.1); Sodium 142 mmol/L (136-145)
[2019-07-25] MEDS: Acetaminophen 500 MG TAB PO SCH ×3 (06:31→17:54)
[2019-07-25] MEDS: Piperacillin/Tazobactam 3.375 GM in Sodium Chloride 0.9% 100 ML IVPB SCH (06:31)
[2019-07-25] MEDS ORDERED: Furosemide 20 MG/2 ML VIAL SLOW IVP SCH (07:00)
[2019-07-25] MEDS ORDERED: Enoxaparin Sodium 30 MG/0.3 ML SYRINGE SC SCH (09:00)
[2019-07-25] MEDS: Potassium Chloride 10 MEQ TAB PO SCH ×2 (09:21→19:51)
[2019-07-25] MEDS: Dorzolamide HCl 2% Ophth Soln 10 ml Bottle EA EYE SCH ×2 (09:21→19:53)
[2019-07-25] MEDS: Magnesium Oxide 400 MG TAB PO SCH (09:21)
[2019-07-25] MEDS: Famotidine 20 MG TAB PO SCH (09:21)
[2019-07-25] MEDS: Furosemide 20 MG TAB PO SCH (09:22)
[2019-07-25] MEDS: Brimonidine Tartrate 0.2% Ophth Soln 5 ml Bottle EA EYE SCH ×2 (09:22→19:53)
[2019-07-25] MEDS: traMADol HCl 50 MG TAB PO PRN ×2 (09:22→18:48)
[2019-07-25] MEDS: Latanoprost 0.005% Ophth Soln 2.5 ml Bottle EA EYE SCH (09:36)
[2019-07-25] MEDS: Senokot S 8.6-50 MG TAB PO SCH ×2 (09:37→19:52)
[2019-07-25] MEDS: Polyethylene Glycol 3350 17 GM Packet PO SCH (09:37)
[2019-07-25 10:33] LABS: Magnesium 1.9 mg/dL (1.6-2.6); Phosphorus 3.3 mg/dL (2.3-4.7)
--- NOTE | 2019-07-25 12:12 | PRG ---
DATE OF SERVICE: 07/25/2019 SUBJECTIVE: Ms. Ferrari is a 74-year-old woman, postoperative day #4, status post DaVinci laparoscopic incisional hernia repair. Postoperative period has been complicated by bilobar pneumonia. This morning, she is awake and alert. She recorded a good diuresis yesterday. She is tolerating general diet, having normal bowel and urinary function. She denies any dyspnea or syncope. Her pain is adequately controlled on oral analgesics. OBJECTIVE: VITAL SIGNS: This morning include blood pressure 99/60, pulse is 83, respiratory rate is 16, temperature is 97.4 degrees Fahrenheit, oxygen saturation is 95% on 3 L by nasal cannula oxygen. HEENT: Pupils are equal, round, and reactive to light and accommodation. She has no scleral edema today. NECK: She has no jugular venous distention noted. HEART: Regular rate and rhythm. No murmurs or gallops auscultated. LUNGS: Clear to auscultation bilaterally. Her breathing is regular and unlabored. ABDOMEN: Soft with minimum incisional tenderness to palpation. Clearly has no peritoneal signs on examination. Bowel sounds are present in all 4 quadrants. NEUROLOGIC: No focal deficits present. LABORATORY FINDINGS: Today include CBC with 5800 white blood cells, hemoglobin and hematocrit are stable at 10.5 and 31.0 respectively, and platelet count is stable also at 207,000. Metabolic profile; sodium 142, potassium 4.1, chloride is 111, bicarb is 23, BUN is 15, creatinine is elevated today at 1.47 compared to 1.04 yesterday, however, this appears to be the patient's baseline creatinine. Glucose today is at 79. Magnesium 1.9. Phosphorus is 3.3. IMPRESSION: 1. Postoperative day #5, status post da Vanessa laparoscopic ventral and incisional hernia repair with mesh. 2. Bilobar pneumonia with acute pulmonary insufficiency, resolving. 3. Stable stage 3 chronic kidney disease. PLAN: 1. Increase activity per Physical and Occupational Therapy. 2. The patient has no current IV accesses. She is a difficult stick. Therefore, we will convert all her medications to oral intake including antibiotic therapy. 3. Encourage deep breath and cough as well as bronchodilator therapy. 4. There is no further surgical indication for this patient at this time. 5. Anticipate discharge in the next 24 to 48 hours if the patient continues to remain stable. She may need home oxygen therapy and home health care upon discharge versus inpatient rehabilitation. Job ID: [id number]
--- NOTE | 2019-07-25 13:44 | PDOC.HOSPP ---
- Subjective Encounter Date: 07/25/19 Encounter Time: 09:10 Subjective: ambulating with PH this am. echo report d/w son. no iv access. d/w RN. - Objective Vital Signs & Weight: Vital Signs (12 hours) Temp Pulse Resp BP BP Pulse Ox 07/25/19 10:40 97.7 F 81 14 102/64 96 07/25/19 08:05 97.4 F L 83 16 99/60 95 07/25/19 06:49 79 16 95 07/25/19 04:32 98.1 F 84 16 106/64 94 L Weight Weight 110 lb I&O: 07/24/19 07/25/19 07/26/19 06:59 06:59 06:59 Intake Total 920 1360 Output Total 1000 Balance -80 1360 Result Diagrams: 07/25/19 05:36 07/25/19 05:36 Hospitalist ROS - Medication Medications: Active Medications Generic Name Dose Route Start Last Admin Trade Name Freq PRN Reason Stop Dose Admin Acetaminophen 1,000 mg 07/24/19 18:30 07/25/19 12:07 Tylenol PO 1,000 mg Q6HR YAZ Administration Albuterol/Ipratropium 3 ml 07/22/19 12:30 07/25/19 13:05 Duoneb NEB 3 ml TID-RT YAZ Administration Albuterol/Ipratropium 3 ml 07/23/19 01:26 07/24/19 05:11 Duoneb NEB 3 ml Q4H PRN Administration SOB &/or Wheezing Atorvastatin Calcium 20 mg 07/20/19 21:00 07/24/19 20:02 Lipitor PO 20 mg HS YAZ Administration Brimonidine Tartrate 1 drop 07/20/19 21:00 07/25/19 09:22 Alphagan 0.2% Ophth Soln EA EYE 1 drp BID YAZ Administration Dorzolamide HCl 1 drop 07/20/19 21:00 07/25/19 09:21 Trusopt 2% Ophth Soln EA EYE 1 drp BID YAZ Administration Escitalopram Oxalate 20 mg 07/20/19 21:00 07/24/19 20:03 Lexapro PO 20 mg HS YAZ Administration Estrogens Conjugated 0.625 mg 07/21/19 09:00 07/25/19 10:29 Premarin PO 0.625 mg QAM YAZ Administration Famotidine 20 mg 07/22/19 09:00 07/25/19 09:21 Pepcid PO 20 mg DAILY YAZ Administration Furosemide 20 mg 07/25/19 09:00 07/25/19 09:22 Lasix PO 20 mg DAILY YAZ Administration Vancomycin HCl 1 gm/ Device 200 mls @ 200 mls/hr 07/24/19 19:00 07/24/19 19: 10 IVPB 200 mls 1900 YAZ Administration Latanoprost 1 drop 07/21/19 09:00 07/25/19 09:36 Xalatan 0.005% Ophth Soln EA EYE 1 drop DAILY YAZ Administration Levothyroxine Sodium 125 mcg 07/20/19 21:00 07/24/19 20:02 Synthroid PO 125 mcg HS YAZ Administration Magnesium Oxide 400 mg 07/21/19 09:00 07/25/19 09:21 Magnesium Oxide PO 400 mg DAILY YAZ Administration Polyethylene Glycol 17 gm 07/24/19 09:00 07/25/19 09:37 Miralax PO Not Given DAILY YAZ Potassium Chloride 10 meq 07/20/19 21:00 07/25/19 09:21 Klor-Con 10 PO 10 meq BID YAZ Administration Quetiapine Fumarate 400 mg 07/20/19 21:00 07/24/19 20:02 Seroquel PO 400 mg HS YAZ Administration Senna/Docusate Sodium 1 tab 07/23/19 21:00 07/25/19 09:37 Senokot S PO Not Given BID YAZ Tramadol HCl 50 mg 07/24/19 18:19 07/25/19 09:22 Ultram PO 50 mg Q6H PRN Administration Moderate Pain (4-6) - Exam General Appearance: NAD, awake alert Eye: PERRL ENT: normocephalic atraumatic Neck: supple, symmetric Heart: RRR, normal peripheral pulses Respiratory: CTAB, no wheezes Gastrointestinal: no palpable masses Neurological: no focal deficits Hosp A/P - Plan HCAP (healthcare-associated pneumonia) Continue Zosyn/Vancomycin, O2 support, Duonebs PRN -started on - stop on -- switch to PO if asa neg, -b, asa neg x 48hrs -pt has sig.. wheezing - will r/o any other etiol prior to switch of IV abx -cxr 6th - b/l infilterate; R>L -8th CXR - no change from there. (2) Acute metabolic encephalopathy Persistent and likely multifactorial, continue supportive mgmt, treat underlying PNA, limit psychotropes and pain medications on home xanx - on hold (3) SEE (acute kidney injury) Mild SEE, continue low-volume IVF's, avoid nephrotoxic meds (4) Hypothyroid Levothyroxine 125mcg daily Elevated BNP w.. nl Cr - getting echo---- -as BNP > 500 - will start lasix low dose, and titrate after reviewing the echo. ----------->-> Ef 55%- no sig. abn..therefore will not give her PO lasix upon dc home, which is planned for tomorrow. Augmentin - stop on to complete 7 day course. home O2 evaluation prob dc home in am after sux clearance.
[2019-07-25] MEDS: Levothyroxine Sodium 125 MCG TAB PO SCH (19:52)
[2019-07-25] MEDS: Atorvastatin Calcium 20 MG TAB PO SCH (19:52)
[2019-07-25] MEDS: Escitalopram Oxalate 20 mg Tablet PO SCH (19:52)
[2019-07-25] MEDS: Amoxicillin/Potassium Clav 500 MG TAB PO SCH (19:57)
[2019-07-25] MEDS ORDERED: Amoxicillin/Potassium Clav 500 MG TAB PO SCH (21:00)
[2019-07-25] MEDS ORDERED: Clotrimazole 2% 3 Day Vag Cr 22.2 GM TUBE VAG SCH (21:00)
[2019-07-26] MEDS: Acetaminophen 500 MG TAB PO SCH ×3 (02:33→12:22)
[2019-07-26] MEDS: Dorzolamide HCl 2% Ophth Soln 10 ml Bottle EA EYE SCH (08:40)
[2019-07-26] MEDS: Amoxicillin/Potassium Clav 500 MG TAB PO SCH (08:40)
[2019-07-26] MEDS: Brimonidine Tartrate 0.2% Ophth Soln 5 ml Bottle EA EYE SCH (08:40)
[2019-07-26] MEDS: Potassium Chloride 10 MEQ TAB PO SCH (08:41)
[2019-07-26] MEDS: Famotidine 20 MG TAB PO SCH (08:41)
[2019-07-26] MEDS: Polyethylene Glycol 3350 17 GM Packet PO SCH (08:41)
[2019-07-26] MEDS: Magnesium Oxide 400 MG TAB PO SCH (08:41)
[2019-07-26] MEDS: Furosemide 20 MG TAB PO SCH (08:41)
[2019-07-26] MEDS: Senokot S 8.6-50 MG TAB PO SCH (08:41)
[2019-07-26] MEDS: Latanoprost 0.005% Ophth Soln 2.5 ml Bottle EA EYE SCH (10:10)
[2019-07-26] MEDS: traMADol HCl 50 MG TAB PO PRN (12:22)
[2019-07-26 12:39] VITALS: BP 130/76; TEMP 98
--- NOTE | 2019-07-26 13:06 | PDOC.HOSPP ---
- Subjective Encounter Date: 07/26/19 Encounter Time: 10:45 Subjective: pt at her baseline. pt is walking around with 2 Li O2. it appears that she may not qualify given being treated now for pnemonia. - Objective Vital Signs & Weight: Vital Signs (12 hours) Temp Pulse Resp BP BP Pulse Ox 07/26/19 12:00 98.0 F 85 18 130/76 91 L 07/26/19 08:02 97 07/26/19 08:01 97.5 F L 90 20 133/69 95 07/26/19 08:00 95 07/26/19 04:26 98.1 F 86 16 105/59 L 90 L Weight Weight 110 lb I&O: 07/25/19 07/26/19 07/27/19 06:59 06:59 06:59 Intake Total 1360 720 Balance 1360 720 Result Diagrams: 07/25/19 05:36 07/25/19 05:36 Hospitalist ROS - Medication Medications: Active Medications Generic Name Dose Route Start Last Admin Trade Name Freq PRN Reason Stop Dose Admin Acetaminophen 1,000 mg 07/24/19 18:30 07/26/19 12:22 Tylenol PO 1,000 mg Q6HR YAZ Administration Albuterol/Ipratropium 3 ml 07/22/19 12:30 07/26/19 08:01 Duoneb NEB 3 ml TID-RT YAZ Administration Albuterol/Ipratropium 3 ml 07/23/19 01:26 07/24/19 05:11 Duoneb NEB 3 ml Q4H PRN Administration SOB &/or Wheezing Amoxicillin/Clavulanate Potassium 500 mg 07/25/19 21:00 07/26/19 08:40 Augmentin PO 08/01/19 21:01 500 mg Q12HR YAZ Administration Atorvastatin Calcium 20 mg 07/20/19 21:00 07/25/19 19:52 Lipitor PO 20 mg HS YAZ Administration Brimonidine Tartrate 1 drop 07/20/19 21:00 07/26/19 08:40 Alphagan 0.2% Ophth Soln EA EYE 1 drp BID YAZ Administration Clotrimazole 0 gm 07/25/19 21:00 07/25/19 19:53 Clotrimazole 2% 3 Day Vag Cr VAG 07/27/19 21:01 1 applic HS YAZ Administration Dorzolamide HCl 1 drop 07/20/19 21:00 07/26/19 08:40 Trusopt 2% Ophth Soln EA EYE 1 drp BID YAZ Administration Escitalopram Oxalate 20 mg 07/20/19 21:00 07/25/19 19:52 Lexapro PO 20 mg HS YAZ Administration Estrogens Conjugated 0.625 mg 07/21/19 09:00 07/26/19 08:41 Premarin PO 0.625 mg QAM YAZ Administration Famotidine 20 mg 07/22/19 09:00 07/26/19 08:41 Pepcid PO 20 mg DAILY YAZ Administration Furosemide 20 mg 07/25/19 09:00 07/26/19 08:41 Lasix PO 20 mg DAILY YAZ Administration Latanoprost 1 drop 07/21/19 09:00 07/26/19 10:10 Xalatan 0.005% Ophth Soln EA EYE 1 drop DAILY YAZ Administration Levothyroxine Sodium 125 mcg 07/20/19 21:00 07/25/19 19:52 Synthroid PO 125 mcg HS [facility] Administration Magnesium Oxide 400 mg 07/21/19 09:00 07/26/19 08:41 Magnesium Oxide PO 400 mg DAILY YAZ Administration Polyethylene Glycol 17 gm 07/24/19 09:00 07/26/19 08:41 Miralax PO Not Given DAILY [facility] Potassium Chloride 10 meq 07/20/19 21:00 07/26/19 08:41 Klor-Con 10 PO 10 meq BID YAZ Administration Quetiapine Fumarate 400 mg 07/20/19 21:00 07/25/19 19:52 Seroquel PO 400 mg HS [facility] Administration Senna/Docusate Sodium 1 tab 07/23/19 21:00 07/26/19 08:41 Senokot S PO 1 tab BID YAZ Administration Tramadol HCl 50 mg 07/24/19 18:19 07/25/19 09:22 Ultram PO 50 mg Q6H PRN Administration Moderate Pain (4-6) Tramadol HCl 100 mg 07/25/19 18:02 07/26/19 12:22 Ultram PO 100 mg Q6H PRN Administration Breakthrough Pain - Exam General Appearance: NAD, awake alert Eye: PERRL ENT: normocephalic atraumatic Neck: supple Heart: RRR Respiratory: CTAB Gastrointestinal: non-distended Neurological: cranial nerve grossly intact, no focal deficits Hosp A/P - Plan HCAP (healthcare-associated pneumonia) Continue Zosyn/Vancomycin, O2 support, Duonebs PRN -started on 6th - stop on -- switch to PO if asa neg, -b, asa neg x 48hrs -pt has sig.. wheezing - will r/o any other etiol prior to switch of IV abx -cxr 6th - b/l infilterate; R>L -8th CXR - no change from there. 9 - swtiched to augmentin (2) Acute metabolic encephalopathy Persistent and likely multifactorial, continue supportive mgmt, treat underlying PNA, limit psychotropes and pain medications on home xanx - on hold (3) SEE (acute kidney injury) Mild SEE, continue low-volume IVF's, avoid nephrotoxic meds (4) Hypothyroid Levothyroxine 125mcg daily Elevated BNP w.. nl Cr - getting echo---- -as BNP > 500 - will start lasix low dose, and titrate after reviewing the echo. ----------->-> Ef 55%- no sig. abn..therefore will not give her PO lasix upon dc home, which is planned for tomorrow. Augmentin - stop on to complete 7 day course. home O2 evaluation prob dc home in am after sux clearance. 10th she is not qulified at this time for home O2 as being treated for pnemonia she can follow up with PCP in 1 to 2 wks to reassess ambulatory O2 status. her echo has nl ef., does not need lasix, if her LE edema recurs, PCP can consider starting her low low dose lasix PRN basis. cleared from hospitalist point of view for dc.
--- NOTE | 2019-07-26 14:40 | DIS ---
DATE OF ADMISSION: 07/20/2019 DATE OF DISCHARGE: 07/26/2019 ADMITTING DIAGNOSIS: Incisional hernia. DISCHARGE DIAGNOSES: 1. Incisional hernia. 2. Pneumonia, healthcare-associated. PROCEDURES: Laparoscopic da Vanessa incisional hernia repair by Dr. Savage without complication. CONDITION ON DISCHARGE: Improved. HOSPITAL COURSE: The patient was admitted and on postop day 2, developed more dyspnea. She had a chest x-ray revealing right lower lobe greater than left lower lobe infiltrates. She was found to have healthcare-acquired pneumonia. She was placed on the vancomycin and Zosyn. This was ultimately switched over to oral Augmentin. Otherwise, her postop course was uneventful. Her oxygen requirements lessens. She was more active. She had some confusion early on from IV narcotics that went away. She was having bowel movements. On the day of discharge, she is doing well. Her O2 saturations on room air were in the 90s. She will follow up with me in the office in 2 weeks. She was given a prescription for Augmentin for 5 more days by the hospitalist. I already sent over prescriptions for [place] and Zofran to her pharmacy. Job ID: [id number]
== END 2019-07-26 13:15 | disposition home or self-care (01) | DRG 353 ==
LOC: SDC 05:42 → SURG A 10:00 → OBSVTOIN 10:00
PROVIDERS: ADMIT Surgery; ATTEND Surgery
PROC: 0WUF4JZ Supplement Abdominal Wall with Synthetic Substitute, Percutaneous Endoscopic Approach (ICD-10-PCS; principal; 2019-07-20)
PROC: 8E0W4CZ Robotic Assisted Procedure of Trunk Region, Percutaneous Endoscopic Approach (ICD-10-PCS; 2019-07-20)
DX: K43.2 Incisional hernia without obstruction or gangrene (principal); G93.41 Metabolic encephalopathy; J15.9 Unspecified bacterial pneumonia; N17.9 Acute kidney failure, unspecified; Y95 Nosocomial condition; F41.1 Generalized anxiety disorder; F32.9 Major depressive disorder, single episode, unspecified; H40.9 Unspecified glaucoma; E78.5 Hyperlipidemia, unspecified; H35.30 Unspecified macular degeneration; E03.9 Hypothyroidism, unspecified; N18.3 Chronic kidney disease, stage 3 (moderate); I12.9 Hypertensive chronic kidney disease with stage 1 through stage 4 chronic kidney disease, or unspecified chronic kidney disease; Z90.710 Acquired absence of both cervix and uterus; Z90.49 Acquired absence of other specified parts of digestive tract; Z79.899 Other long term (current) drug therapy; Z87.891 Personal history of nicotine dependence; M19.041 Primary osteoarthritis, right hand; M19.042 Primary osteoarthritis, left hand
CPT/HCPCS: 36415; 70450; 71045; 80048; 80202; 81001; 82607; 82746; 83735; 83880; 84100; 85007; 85014; 85018; 85025; 85027; 85049; 87040; 93306; 94640; J0690; J1100; J1650; J1940; J2001; J2405; J2543; J2704; J3010; J3370; J3490; J7050; J7620; S0020; S0028

== ENCOUNTER 2019-08-04 12:19 | Outpatient (CLI) | payer MEDICARE ==
--- NOTE | 2019-08-04 14:04 | RAD ---
PA AND LATERAL CHEST: 08/04/19 HISTORY: Pneumonia follow-up. COMPARISON: 07/24/19 exam. Heart size is within normal limits. There is some atherosclerotic changes of the aorta. Breast augmen tation is noted. There has been an improvement in the appearance of the bibasilar and lung changes. T he parenchymal change in the left base is essentially resolved. Some minimal residual changes in the right base but on the lateral view these appear to be more interstitial changes in the right middle l obe probably related to scarring. IMPRESSION: Some residual density within the right lung base. I think this is largely related to scarring and on the PA projection is contributed to by the calcified breast implant. Essentially the infiltrates have completely resolved. POS: TPC
== END 2019-08-04 12:20 | disposition home or self-care (01) ==
LOC: SCSRAD 12:19
PROVIDERS: ATTEND Family Medicine
DX: J18.9 Pneumonia, unspecified organism (principal); J98.4 Other disorders of lung
CPT/HCPCS: 71046

== ENCOUNTER 2019-08-20 09:55 | Outpatient (CLI) | payer MEDICARE ==
--- NOTE | 2019-08-20 10:37 | RAD ---
XR Chest Pa Lat STANDARD HISTORY: Pneumonia follow-up COMPARISON: 08/04/2019 FINDINGS: The heart size is normal. The lungs are well expanded without focal areas of consolidation, pneumothorax or pleural effusions. There are calcified breast implants. IMPRESSION: No radiographic evidence of acute cardiopulmonary process.
== END 2019-08-20 09:56 | disposition home or self-care (01) ==
LOC: SCSRAD 09:55
PROVIDERS: ATTEND Family Medicine
DX: J18.9 Pneumonia, unspecified organism (principal)
CPT/HCPCS: 71046

== ENCOUNTER 2020-09-12 09:14 | Outpatient (CLI) | payer MEDICARE | END 2020-09-12 09:15 | disposition home or self-care (01) | LOC: BICRAD 09:14 | PROVIDERS: ATTEND Family Medicine | DX: R06.00 Dyspnea, unspecified (principal) | CPT/HCPCS: 71046 ==

== ENCOUNTER 2021-12-28 10:34 | Outpatient (CLI) | payer MEDICARE | END 2021-12-28 10:35 | disposition home or self-care (01) | LOC: SCSRAD 10:34 | PROVIDERS: ATTEND Family Medicine | DX: R06.02 Shortness of breath (principal); N28.9 Disorder of kidney and ureter, unspecified | CPT/HCPCS: 36415; 71046; 80053; 85025 ==

== ENCOUNTER 2023-01-27 09:10 | Outpatient (CLI) | payer OTHER | END 2023-01-27 09:11 | disposition home or self-care (01) | LOC: SCSRAD 09:10 | PROVIDERS: ATTEND Physician Assistant | DX: B34.9 Viral infection, unspecified (principal) | CPT/HCPCS: 71046 ==

== ENCOUNTER 2024-05-26 11:51 | Inpatient (IN) | payer OTHER ==
[2024-05-26 13:20] VITALS: BMI 21.2
[2024-05-26] MEDS ORDERED: Potassium Chloride 20 MEQ in Lactated Ringer's 1,000 ML IV SCH (14:00)
[2024-05-26 14:01] LABS: Anion Gap 9 mmol/L (10-20); BUN (Urea Nitrogen) 30 mg/dL (9.8-20.1); Calc. Creatinine Clearance 15 mL/min (70-130); Carbon Dioxide 17 mmol/L (23-31); Chloride 115 mmol/L (98-107); Estimated GFR 18; Glucose 99 mg/dL (83-110); Magnesium 2.7 mg/dL (1.6-2.6); Potassium 3.3 mmol/L (3.5-5.1); Sodium 138 mmol/L (136-145)
[2024-05-26] MEDS: Potassium Chloride 40 MEQ in Sodium Chloride 0.45% 1,000 ML IV SCH (15:15)
[2024-05-26] MEDS: Levothyroxine Sodium 100 MCG TAB PO SCH (15:16)
[2024-05-26] MEDS: Brimonidine Tartrate 0.2% Ophth Soln 5 ml Bottle EA EYE SCH (15:16)
[2024-05-26] MEDS: Dorzolamide HCl 2% Ophth (10 mL) Bottle EA EYE SCH (15:17)
[2024-05-26] MEDS ORDERED: Polyvinyl Alcohol 1.4%/Povidone 0.6% Opth Drops EA EYE PRN (21:02)
[2024-05-26] MEDS: cefTRIAXone\\ROCEPHIN 1 GM in Sodium Chloride 0.9% 100 ML IVPB SCH (21:21)
[2024-05-26] MEDS: Atorvastatin Calcium 20 MG TAB PO SCH (21:23)
[2024-05-26] MEDS: QUEtiapine 100 MG TAB PO SCH (21:23)
[2024-05-26] MEDS: ALPRAZolam 0.25 MG TAB PO PRN (21:25)
[2024-05-26] MEDS: Latanoprost 0.005% Ophth Soln 2.5 ml Bottle EA EYE SCH (22:00)
[2024-05-27 03:57] LABS: #Basophils 0.07 10x3/uL (0.0-0.2); %Basophils 1.1 % (0.0-1.0); %Eosinophils 4.1 % (0.0-10.0); %Lymphocytes 42.4 % (21.0-51.0); %Monocytes 11.8 % (0.0-10.0); %Neutrophils 39.6 % (42.0-75.0); Hematocrit 37.7 % (36.0-47.0); Hemoglobin 12.5 g/dL (12.0-16.0); Mean Corpuscular HGB CONC 33.2 g/dL (32.0-36.0); Mean Corpuscular Hemoglobin 31.6 pg (27.0-31.0); Mean Corpuscular Volume 95.4 fL (78.0-98.0); Mean Platelet Volume 9.2 fL (7.4-10.4); Platelet Count 242 10x3/uL (130-400); RBC Distribution Width 14.3 % (11.5-14.5); Red Blood Cell (RBC) Count 3.95 mill/uL (4.20-5.40)
[2024-05-27 04:10] LABS: Anion Gap 9 mmol/L (10-20); BUN (Urea Nitrogen) 29 mg/dL (9.8-20.1); Calc. Creatinine Clearance 17 mL/min (70-130); Calcium 7.8 mg/dL (7.8-10.44); Carbon Dioxide 13 mmol/L (23-31); Chloride 119 mmol/L (98-107); Estimated GFR 22; Glucose 79 mg/dL (83-110); Potassium 3.8 mmol/L (3.5-5.1); Sodium 137 mmol/L (136-145)
[2024-05-27] MEDS: Levothyroxine Sodium 100 MCG TAB PO SCH (05:19)
[2024-05-27] MEDS: Potassium Chloride 20 MEQ in Lactated Ringer's 1,000 ML IV SCH (09:23)
[2024-05-27] MEDS: Pantoprazole DR 40 MG TAB PO SCH (09:24)
[2024-05-27] MEDS: Escitalopram Oxalate 20 mg Tablet PO SCH (09:24)
[2024-05-27] MEDS: Acetaminophen 325 MG TAB PO PRN (09:25)
[2024-05-27 14:19] LABS: Campy jejuni + coli by PCR Negative (Negative); STEC Shiga Toxin 1+2 Negative (Negative); Salmonella spp. by PCR Negative (Negative); Shigella spp + EIEC by PCR Negative (Negative)
[2024-05-27] MEDS: Sodium Bicarbonate Tab 325 MG TAB PO SCH (20:07)
[2024-05-28 06:55] LABS: Anion Gap 11 mmol/L (10-20); BUN (Urea Nitrogen) 21 mg/dL (9.8-20.1); Calc. Creatinine Clearance 21 mL/min (70-130); Calcium 7.6 mg/dL (7.8-10.44); Carbon Dioxide 12 mmol/L (23-31); Chloride 119 mmol/L (98-107); Estimated GFR 28; Glucose 80 mg/dL (83-110); Potassium 3.9 mmol/L (3.5-5.1); Sodium 138 mmol/L (136-145)
[2024-05-28 08:22] LABS: #Basophils 0.07 10x3/uL (0.0-0.2); %Basophils 0.9 % (0.0-1.0); %Eosinophils 3.3 % (0.0-10.0); %Lymphocytes 26.8 % (21.0-51.0); %Monocytes 8.9 % (0.0-10.0); %Neutrophils 59.2 % (42.0-75.0); Hematocrit 42.1 % (36.0-47.0); Hemoglobin 13.2 g/dL (12.0-16.0); Mean Corpuscular HGB CONC 31.4 g/dL (32.0-36.0); Mean Corpuscular Hemoglobin 31.9 pg (27.0-31.0); Mean Corpuscular Volume 101.7 fL (78.0-98.0); Mean Platelet Volume 9.2 fL (7.4-10.4); Platelet Count 215 10x3/uL (130-400); RBC Distribution Width 14.8 % (11.5-14.5); Red Blood Cell (RBC) Count 4.14 mill/uL (4.20-5.40)
[2024-05-28 12:27] VITALS: BP 119/73; TEMP 98.6
== END 2024-05-28 13:01 | disposition home or self-care (01) | DRG 683 ==
LOC: 2NO 12:50 → MSONC 05-27 21:04
PROVIDERS: ADMIT Student in an Organized Health Care Education/Training Program; ATTEND Internal Medicine
DX: N17.9 Acute kidney failure, unspecified (principal); E87.20 Acidosis, unspecified; N39.0 Urinary tract infection, site not specified; E03.9 Hypothyroidism, unspecified; N18.4 Chronic kidney disease, stage 4 (severe); E78.5 Hyperlipidemia, unspecified; F39 Unspecified mood [affective] disorder; K21.9 Gastro-esophageal reflux disease without esophagitis; H40.9 Unspecified glaucoma; E87.6 Hypokalemia; I25.10 Atherosclerotic heart disease of native coronary artery without angina pectoris; F17.210 Nicotine dependence, cigarettes, uncomplicated; E86.9 Volume depletion, unspecified; E86.0 Dehydration; Z90.49 Acquired absence of other specified parts of digestive tract; Z90.710 Acquired absence of both cervix and uterus; Z90.89 Acquired absence of other organs; Z98.51 Tubal ligation status
CPT/HCPCS: 36415; 70450; 71045; 80048; 80053; 81001; 83605; 83735; 84439; 84443; 84481; 84484; 85025; 87040; 87086; 87324; 87428; 87449; 87505; 93005; 93010; 96365; 96366; 96368; J0696; J3480; J7120

== ENCOUNTER 2024-07-09 11:45 | Outpatient (CLI) | payer OTHER | END 2024-07-09 11:46 | disposition home or self-care (01) | LOC: PET 11:45 | PROVIDERS: ATTEND Student in an Organized Health Care Education/Training Program | DX: R91.1 Solitary pulmonary nodule (principal) | CPT/HCPCS: 78815; A9552 ==